=== PATIENT | male | born 1940 | race Caucasian/White ===

== ENCOUNTER 2020-01-11 13:10 | Observation (INO) | payer MEDICARE, OTHER, SELFPAY ==
[2020-01-11] VITALS (7 sets, daily range): BP systolic 93–173; BP diastolic 60–94; PULSE 63–80; RESP 16–20; TEMP 36.1–36.6; O2SAT 95–98; BMI 30.7
--- NOTE | 2020-01-11 13:23 | CT_ITS ---
WS: [id number] CT HEAD TECHNIQUE: Noncontrast CT of the head obtained from the skullbase to the vertex. CLINICAL INFORMATION: ams COMPARISON: April 21, 2019 DLP: 816.[address] scans at [facility] use at least one of these dose optimization techniques: automat ed exposure control; mA and/or kV adjustment per patient size (includes targeted exams where dose is matched to clinical indication); or iterative reconstruction. FINDINGS: No evidence of intracranial hemorrhage or mass effect. Ventricular system and basal cisterns are loya nt. Moderate small vessel changes with moderate parenchymal volume loss. No extra-axial fluid collect ions. No evidence of mass or mass effect. Normal katz-white differentiation. Intracranial vascular ca lcification. Paranasal sinuses and mastoid air cells are well aerated. .Normal visualized soft tissues. Notified Samanta Montgomery MD at 01/11/2020 2:[address]/CT head wo con* [id number] IMPRESSION: 1. No evidence of intracranial hemorrhage or mass effect. 2. Moderate small vessel changes with moderate parenchymal volume loss. 3. No acute intracranial findings.
--- NOTE | 2020-01-11 13:23 | XR_ITS ---
WS: [id number] CHEST XRAY TECHNIQUE: Portable chest. CLINICAL INFORMATION: ams COMPARISON: April 21, 2019 FINDINGS: Heart: Normal cardiac silhouette. Lungs: Chronic emphysematous changes. Calcified hilar nodes. No acute-appearing pulmonary infiltrates . Bones: Reversed right TSA. XR/XR chest 1V portable [id number] IMPRESSION: Chronic emphysematous changes with calcified hilar nodes. No acute-appearing pu lmonary infiltrates.
--- NOTE | 2020-01-11 13:24 | ECG_ITS ---
Measurements Intervals [place] Rate: 68 P: 20 UT: 251 QRS: 3 QRSD: 84 T: 19 QT: 399 QTc: 425 SINUS RHYTHM WITH FIRST DEGREE AV BLOCK Compared to ECG 04/21/2019 17:37:53 T-wave abnormality no longer present Electronically Signed On 01-12-2020 18:06:35 CDT by Gisela Patino M.D. [email or web address]
--- NOTE | 2020-01-11 13:27 | ED_ITS ---
HPI - Neuro Symptoms/Deficit General: Chief Complaint: Neuro Symptoms/Deficit Stated Complaint: stroke s/s Time Seen by Provider: 01/11/20 13:15 Source: patient Mode of arrival: ambulatory Limitations: no limitations History of Present Illness: HPI Narrative: 79-year-old male whose family last seen and talk to them last night. Patient states that he had went to the bathroom roughly 1.5 hours ago and got up and started feeling lightheaded. He states that he had trouble speaking and was passed out on the ground. Patient's family members here and states when he first got there he had left-sided facial droop and was quite weak. That is all since resolved. Patient is able to speak in full sentences and has no droop and is able to answer all my questions appropriately. Patient is ambulatory now as well. He states that he still feels weak though. He has had some nausea. Denies any chest pain or headache. Associated symptoms: Deny chest pain, headache(s), nausea or vomiting Review of Systems Const: Denies: fever, chills, body aches or change in appetite Eyes: Denies: blurry vision or eye discomfort ENMT: Denies: throat pain or dental pain Card: Denies: chest pain Resp: Denies: shortness of breath GI: Denies: abdominal pain, nausea, vomiting or diarrhea : Denies: painful urination Musc: Denies: neck pain or back pain Skin/Breast: Denies: rash Neuro: Reports: weakness in extremities and dizziness; Denies: headache Psych: Denies: depression David/Lymph: Denies: easy bruising All/Imm: Denies: hives PFSH ED PFSH: Social History Smoking and tobacco status: never smoked NIH stroke score NIHSS: Level Of Consciousness - 1a: 0 Level Of Consciousness Questions - 1b: Both Correct Level Of Consciousness Commands - 1c: Both Correct Best Gaze - 2: Normal Visual Salazar - 3: No Visual Loss Facial Palsy - 4: Normal Motor Arm Right - 5: No Drift Motor Arm Left - 5: No Drift Motor Leg Right - 6: No Drift Motor Leg Left - 6: No Drift Limb Ataxia - 7: Absent Sensory - 8: Normal Best Language - 9: No Aphasia Dysarthia - 10: Normal Extinction And Inattention - 11: 0 Score: Total Score: 0 Physical Exam Const: COMMON NORMALS: no apparent distress, oriented x3 and healthy appearing HENMT: COMMON NORMALS: normocephalic and head/scalp atraumatic HEAD & SCALP: normocephalic and atraumatic Eye: COMMON NORMALS: PERRL and EOMs intact bilaterally PUPIL: Yes PERRL Neck/C-Spine: COMMON NORMALS: full ROM and supple Chest: COMMONS NORMALS: inspection of chest normal and palpation of chest normal Resp: COMMON NORMALS: normal respiratory effort, no retractions, no use of accessory muscles and clear to auscultation bilaterally AUSCULTATION: clear to auscultation bilaterally Cardio: COMMON NORMALS: regular rate, regular rhythm and no murmurs RATE: regular rate RHYTHM: regular rhythm GI: COMMON NORMALS: normal to inspection, nondistended, normoactive bowel sounds, soft to palpation, non-tender and no masses PALPATION: Yes soft Extremity: COMMON NORMALS: normal to inspection and full ROM Neuro: COMMON NORMALS: oriented x3, moves all extremities and no focal motor deficits Psych: COMMON NORMALS: mental status grossly normal, thought process normal and cooperative THOUGHT PROCESS: normal thought process Skin: COMMON NORMALS: no rashes or lesions noted and no wounds GENERAL SKIN EXAM: no rashes or lesions noted Course Vital Signs: Vital signs: Vital Signs Temperature 96.9 F L 01/11/20 13:20 Pulse Rate 63 01/11/20 15:27 Respiratory Rate 20 H 01/11/20 15:27 Blood Pressure 173/94 01/11/20 15:27 Pulse Oximetry 97 01/11/20 15:27 MDM - Neuro Symptoms/Deficit MDM Narrative: Medical decision making narrative: Patient presents here with TIA versus a syncopal event. Patient symptoms have resolved and he is well- appearing here. Patient CT scan and lab works all normal. He is not a TPA candidate as his symptoms have resolved. I spoke to hospitalist and will admit for observation. Lab Data: Labs: Lab Results 01/11/20 01/11/20 01/11/20 Range/Units 13:53 13:53 13:53 WBC 5.8 (4.0-10.0) 10^3/ uL RBC 5.05 (4.1-5.3) 10^6/u L Hgb 11.7 (11.7-16.6) g/dL Hct 40.9 L (42.0-52.0) % MCV 81.0 (80-94) fL MCH 23.2 L (28.0-34.0) pg MCHC 28.6 L (30.0-36.0) g/dL RDW 14.9 (12.1-15.1) % Plt Count 171 (130-400) 10^3/c mm MPV 10.3 (7.4-10.4) fL Neut % (Auto) 81.0 % Lymph % (Auto) 10.9 % [place] % (Auto) 5.2 % Eos % (Auto) 1.2 % Baso % (Auto) 0.7 % Neut # (Auto) 4.7 (1.8-7.7) 10^3/u L Lymph # (Auto) 0.6 L (0.8-4.8) 10^3/u L [place] # (Auto) 0.3 (0.2-0.9) 10^3/u L Eos # (Auto) 0.1 (0.0-0.8) 10^3/u L Baso # (Auto) 0.0 (0.0-0.1) 10^3/u L Nucleated RBC % (a uto) 0 % Nucleated RBCs # 0.0 /100WBC PT 13.60 H (10.5-13.3) SECO NDS INR 1.01 (0.8-1.2) Sodium 136 (136-145) mmol/L Potassium 5.5 H (3.5-5.1) mmol/L Chloride 101 (98-107) mmol/L Carbon Dioxide 23 (22-29) mmol/L Anion Gap 17.5 (5-19) BUN 26 H (8-23) mg/dL Creatinine 1.4 H (0.7-1.2) mg/dL Glucose 179 H (65-115) mg/dL Calculated Osmolal ity 283 L (285-295) mOsm/k g Calcium 9.6 (8.5-10.5) mg/dL Total Bilirubin 0.4 (0.15-1.2) mg/dL AST 18 (0-40) U/L ALT 16 (0-41) U/L Alkaline Phosphata se 88 (40-130) IU/L Total Protein 7.1 (6.6-8.7) g/dL Albumin 4.0 (3.5-5.2) g/dL Globulin 3.1 (1.3-4.6) g/dL Urine Color (Yellow) Urine Appearance (CLEAR) Urine pH (5-7) Ur Specific Gravit y (1.005-1.030) Urine Protein (Negative) Urine Glucose (UA) (Normal) Urine Ketones (Negative) Urine Blood (Negative) Urine Nitrate (Negative) Urine Bilirubin (NEGATIVE) Urine Urobilinogen (Negative) mg/dL Ur Leukocyte Janie ase (Negative) Urine RBC (0-2) /hpf Urine WBC (0-5) /hpf Ur Squamous Epith Cells (0-5) Urine Bacteria (NONE) 01/11/20 Range/Units 14:36 WBC (4.0-10.0) 10^3/ uL RBC (4.1-5.3) 10^6/u L Hgb (11.7-16.6) g/dL Hct (42.0-52.0) % MCV (80-94) fL MCH (28.0-34.0) pg MCHC (30.0-36.0) g/dL RDW (12.1-15.1) % Plt Count (130-400) 10^3/c mm MPV (7.4-10.4) fL Neut % (Auto) % Lymph % (Auto) % [place] % (Auto) % Eos % (Auto) % Baso % (Auto) % Neut # (Auto) (1.8-7.7) 10^3/u L Lymph # (Auto) (0.8-4.8) 10^3/u L [place] # (Auto) (0.2-0.9) 10^3/u L Eos # (Auto) (0.0-0.8) 10^3/u L Baso # (Auto) (0.0-0.1) 10^3/u L Nucleated RBC % (a uto) % Nucleated RBCs # /100WBC PT (10.5-13.3) SECO NDS INR (0.8-1.2) Sodium (136-145) mmol/L Potassium (3.5-5.1) mmol/L Chloride (98-107) mmol/L Carbon Dioxide (22-29) mmol/L Anion Gap (5-19) BUN (8-23) mg/dL Creatinine (0.7-1.2) mg/dL Glucose (65-115) mg/dL Calculated Osmolal ity (285-295) mOsm/k g Calcium (8.5-10.5) mg/dL Total Bilirubin (0.15-1.2) mg/dL AST (0-40) U/L ALT (0-41) U/L Alkaline Phosphata se (40-130) IU/L Total Protein (6.6-8.7) g/dL Albumin (3.5-5.2) g/dL Globulin (1.3-4.6) g/dL Urine Color Yellow (Yellow) Urine Appearance Clear (CLEAR) Urine pH 5 (5-7) Ur Specific Gravit y 1.025 (1.005-1.030) Urine Protein 1+ H (Negative) Urine Glucose (UA) Norm (Normal) Urine Ketones Negative (Negative) Urine Blood Neg (Negative) Urine Nitrate Negative (Negative) Urine Bilirubin 1+ H (NEGATIVE) Urine Urobilinogen Norm (Negative) mg/dL Ur Leukocyte Janie ase Negative (Negative) Urine RBC None (0-2) /hpf Urine WBC 0-4 H (0-5) /hpf Ur Squamous Epith Cells 0-4 H (0-5) Urine Bacteria 1+ H (NONE) Imaging Data^: CT Head: Radiologist's impression: [place] [address] CT Scan Report Signed Patient: Martha Hector Unit #: [id number] : 1940 Age/Sex: 79 / M ADM Date: 01/11/20 Loc: ER Room/Bed: Attending Dr: Ordering Provider/Ordering MD: Samanta Montgomery MD Date of Service: 01/11/20 Procedure(s): CT head wo con* [id number] Accession Number(s): [id number] Report Number: [id number] WS: [id number] CT HEAD TECHNIQUE: Noncontrast CT of the head obtained from the skullbase to the vertex. CLINICAL INFORMATION: ams COMPARISON: April 21, 2019 DLP: 816.[address] scans at [facility] use at least one of these dose optimization techniques: automated exposure control; mA and/or kV adjustment per patient size (includes targeted exams where dose is matched to clinical indication); or iterative reconstruction. FINDINGS: No evidence of intracranial hemorrhage or mass effect. Ventricular system and basal cisterns are patent. Moderate small vessel changes with moderate parenchymal volume loss. No extra-axial fluid collections. No evidence of mass or mass effect. Normal katz-white differentiation. Intracranial vascular calcification. Paranasal sinuses and mastoid air cells are well aerated. .Normal visualized soft tissues. Notified Samanta Montgomery MD at 01/11/2020 2:[address]/CT head wo con* [id number] IMPRESSION: 1. No evidence of intracranial hemorrhage or mass effect. 2. Moderate small vessel changes with moderate parenchymal volume loss. 3. No acute intracranial findings. CXR: Attestation: I personally reviewed and interpreted this imaging study as follows: Radiologist's impression: [address] [address] XRay Report Signed Patient: Martha Hector Unit #: [id number] : 1940 Age/Sex: 79 / M ADM Date: 01/11/20 Loc: ER Room/Bed: Attending Dr: Ordering Provider/Ordering MD: Samanta Montgomery MD Date of Service: 01/11/20 Procedure(s): XR chest 1V portable [id number] Accession Number(s): [id number] Report Number: [id number] WS: [id number] CHEST XRAY TECHNIQUE: Portable chest. CLINICAL INFORMATION: ams COMPARISON: April 21, 2019 FINDINGS: Heart: Normal cardiac silhouette. Lungs: Chronic emphysematous changes. Calcified hilar nodes. No acute-appearing pulmonary infiltrates. Bones: Reversed right TSA. XR/XR chest 1V portable [id number] IMPRESSION: Chronic emphysematous changes with calcified hilar nodes. No acute-appearing pulmonary infiltrates EKG Data^: EKG 1: Attestation: I personally reviewed and interpreted this EKG as follows: EKG interpretation date: 01/11/20 EKG interpretation time: 14:05 Interpretation: nsr hr [address] or t wave abnormalities qrs 84 qtc 416 Discharge Plan Discharge Patient Disposition: Admitted As Inpatient Clinical Impression: Transient cerebral ischemia Qualifiers: Transient cerebral ischemia type: other Qualified Code(s): G45.8 - Other transient cerebral ischemic attacks and related syndromes Condition: Stable Referrals: Jalen Hicks DO [Family Provider] - Coding Level of Care Code ED Director Of [employer] for Chg Fwd Exam Comprehensive
[2020-01-11] MEDS: ondansetron 2 mg/ML SDV 2 mL 4 MG IVP (14:10)
[2020-01-11] MEDS: sodium chloride 0.9% 1,000 ML 999 ML IV (14:10)
[2020-01-11 14:14] LABS: Basophils % 0.7 %; Eosinophils # 0.1 10^3/uL (0.0-0.8); Eosinophils % 1.2 %; Hematocrit 40.9 % (42.0-52.0); Hemoglobin 11.7 g/dL (11.7-16.6); Lymphocytes # 0.6 10^3/uL (0.8-4.8); Lymphocytes % 10.9 %; Mean Corpuscular HGB Conc 28.6 g/dL (30.0-36.0); Mean Corpuscular Hemoglobin 23.2 pg (28.0-34.0); Mean Platelet Volume 10.3 fL (7.4-10.4); Monocytes # 0.3 10^3/uL (0.2-0.9); Monocytes % 5.2 %; Neutrophils # 4.7 10^3/uL (1.8-7.7); Nucleated Red Blood Cells % 0 %; Platelet Count 171 10^3/cmm (130-400); Red Blood Count 5.05 10^6/uL (4.1-5.3); Red Cell Distribution Width 14.9 % (12.1-15.1); White Blood Count 5.8 10^3/uL (4.0-10.0)
[2020-01-11 14:17] LABS: INR 1.01 (0.8-1.2)
[2020-01-11 14:25] LABS: Alanine Aminotransferase 16 U/L (0-41); Alkaline Phosphatase 88 IU/L (40-130); Anion Gap 17.5 (5-19); Aspartate Amino Transferase 18 U/L (0-40); Blood Urea Nitrogen 26 mg/dL (8-23); Calcium 9.6 mg/dL (8.5-10.5); Carbon Dioxide 23 mmol/L (22-29); Chloride 101 mmol/L (98-107); Globulin 3.1 g/dL (1.3-4.6); Glucose 179 mg/dL (65-115); Osmolality Calculated 283 mOsm/kg (285-295); Potassium 5.5 mmol/L (3.5-5.1); Sodium 136 mmol/L (136-145); Total Bilirubin 0.4 mg/dL (0.15-1.2); Total Protein 7.1 g/dL (6.6-8.7)
[2020-01-11 15:20] LABS: Glucose Urine UA Norm (Normal); Protein Urine 1+ (Negative); Specific Gravity, Urine 1.025 (1.005-1.030); Urine Appearance Clear (CLEAR); Urine Color Yellow (Yellow); pH Urine 5 (5-7)
[2020-01-11 15:21] LABS: Add Urine Microscopic? YES; Bilirubin Urine 1+ (NEGATIVE); Blood Urine Neg (Negative); Ketones Urine Negative (Negative); Leukocyte Esterase Urine Negative (Negative); Nitrate Urine Negative (Negative); Squamous Epithelial Cell Urine 0-4 (0-5); Urobilinogen Urine Norm (Negative); WBC Urine 0-4 /hpf (0-5)
[2020-01-11 15:22] LABS: Add Urine Culture? No; Bacteria Urine 1+
--- NOTE | 2020-01-11 16:27 | PM.HP ---
Providers/Chief Complaint Admitting Physician: Mauro Cerna Primary Care Provider: Mauro Cerna Chief Complaint: SYNCOPE History of Present Illness Martha Hector is a 79 year old male who was brought to emergency room by his family due to syncopal episode which happened about 2 hours prior to presentation to emergency room. The patient called to his daughter and informed her that he fell earlier this morning. He was at his baseline state of health before it happened. He did not have any concerns until this event. The patient was on the way to bathroom when he fell urged to defecate. Suddenly he also experienced some nausea and dry heaving. Shortly after that he experienced lightheadedness and collapsed. He does not remember events shortly after that. His daughter believes that he was down for at least an hour. When she arrived he was on the floor, confused, with generalized weakness. She noticed left-sided facial droop and slurred speech. However the symptoms very quickly resolved. On initial evaluation in the emergency room his NIH score was 0. Actually, now he reports feeling very well. He does not think that he had any seizures. No biting of the tongue, no vomiting, no foaming of the mouth, no incontinence. He also denies sustaining any significant traumas. His fall was pretty smooth. He denies any pain in his extremities or neck or head. He also denies any chest pain, palpitations, diaphoresis, dizziness, problems with vision, headache before or after. He denies any recent diarrhea, black or bloody stools, vomiting, fever or chills, respiratory symptoms, runny nose or sore throat. The patient denies any similar episodes in the past. He denies any personal or family history of seizures or stroke. The patient reports remote history of coronary artery disease and stents, currently takes only aspirin for that. He also reports well-controlled hypertension, diabetes. Occasionally he takes Pepto-Bismol for indigestion as needed. He says his doctor regularly. Review of Systems General: Reports: 10 or more systems reviewed and unremarkable except in HPI and below Medications/Allergies Home Medications Medication Instructions Recorded Confirmed Last Taken Type Lactobacillus acidophilus 1 cap PO BID 01/11/20 01/11/20 Unknown History [Acidophilus] Vitamin B-1 1 tab PO BID 01/11/20 01/11/20 Unknown History aspirin [Aspir-81] 81 mg PO DAILY 01/11/20 01/11/20 Unknown History citalopram 20 mg PO DAILY 01/11/20 01/11/20 01/11/20 History fiber 1 tab PO BID 01/11/20 01/11/20 Unknown History isosorbide dinitrate 30 mg PO DAILY 01/11/20 01/11/20 01/11/20 History metformin 1,000 mg PO BID 01/11/20 01/11/20 01/11/20 History metoprolol tartrate 25 mg PO DAILY 01/11/20 01/11/20 01/11/20 History omeprazole 40 mg PO BID 01/11/20 01/11/20 01/11/20 History Allergies Allergy/AdvReac Type Severity Reaction Status Date / Time No Known Allergies Allergy Verified 01/11/20 13:25 PFSH Acute PFSH: Social History Smoking and tobacco status: never smoked Vitals/I&O/Wt Last Vital Signs Temp 98 F 01/11/20 16:00 Pulse 67 01/11/20 16:01 Resp 16 01/11/20 16:01 BP 126/60 01/11/20 16:01 Pulse Ox 95 01/11/20 16:01 01/11/20 01/11/20 01/11/20 06:59 14:59 22:59 Intake Total 1000 / 1000 Balance 1000 / 1000 Weight last 48 hrs Weight 97.069 kg Physical Exam Narrative: EXAM NARRATIVE: The patient is currently awake alert and oriented x4. No acute distress. Mood and affect are appropriate and responses are adequate. Skin is warm and dry. Moist mucous membranes. Eyes PERRLA, extraocular muscles intact. No nystagmus. Head is atraumatic. Neck supple, nontender, no JVD Lungs clear bilaterally. No respiratory distress Heart S1, S2, regular Abdomen soft, nontender, bowel sounds are present. Extremities no edema, cyanosis, calf tenderness bilaterally. No thrombus. Normal range of motion's in the extremities. Neurologic examination is nonfocal. Cranial nerves II through XII are grossly intact. Normal speech. Cerebellar tests are within normal limits. Data : 01/11/20 13:53 01/11/20 13:53 CT Head: Radiologist's impression: Laboratory Results WBC 5.8 10^3/uL (4.0-10.0) 01/11/20 13:53 RBC 5.05 10^6/uL (4.1-5.3) 01/11/20 13:53 Hgb 11.7 g/dL (11.7-16.6) 01/11/20 13:53 Hct 40.9 % (42.0-52.0) L 01/11/20 13:53 MCV 81.0 fL (80-94) 01/11/20 13:53 MCH 23.2 pg (28.0-34.0) L 01/11/20 13:53 MCHC 28.6 g/dL (30.0-36.0) L 01/11/20 13:53 RDW 14.9 % (12.1-15.1) 01/11/20 13:53 Plt Count 171 10^3/cmm (130-400) 01/11/20 13:53 MPV 10.3 fL (7.4-10.4) 01/11/20 13:53 Neut % (Auto) 81.0 % 01/11/20 13:53 Lymph % (Auto) 10.9 % 01/11/20 13:53 [place] % (Auto) 5.2 % 01/11/20 13:53 Eos % (Auto) 1.2 % 01/11/20 13:53 Baso % (Auto) 0.7 % 01/11/20 13:53 Neut # (Auto) 4.7 10^3/uL (1.8-7.7) 01/11/20 13:53 Lymph # (Auto) 0.6 10^3/uL (0.8-4.8) L 01/11/20 13:53 [place] # (Auto) 0.3 10^3/uL (0.2-0.9) 01/11/20 13:53 Eos # (Auto) 0.1 10^3/uL (0.0-0.8) 01/11/20 13:53 Baso # (Auto) 0.0 10^3/uL (0.0-0.1) 01/11/20 13:53 Nucleated RBC % (auto) 0 % 01/11/20 13:53 Nucleated RBCs # 0.0 /100WBC 01/11/20 13:53 PT 13.60 SECONDS (10.5-13.3) H 01/11/20 13:53 INR 1.01 (0.8-1.2) 01/11/20 13:53 Sodium 136 mmol/L (136-145) 01/11/20 13:53 Potassium 5.5 mmol/L (3.5-5.1) H 01/11/20 13:53 Chloride 101 mmol/L (98-107) 01/11/20 13:53 Carbon Dioxide 23 mmol/L (22-29) 01/11/20 13:53 Anion Gap 17.5 (5-19) 01/11/20 13:53 BUN 26 mg/dL (8-23) H 01/11/20 13:53 Creatinine 1.4 mg/dL (0.7-1.2) H 01/11/20 13:53 Glucose 179 mg/dL (65-115) H 01/11/20 13:53 POC Glucose 137 mg/dL (70-110) 01/11/20 16:25 Calculated Osmolality 283 mOsm/kg (285-295) L 01/11/20 13:53 Calcium 9.6 mg/dL (8.5-10.5) 01/11/20 13:53 Total Bilirubin 0.4 mg/dL (0.15-1.2) 01/11/20 13:53 AST 18 U/L (0-40) 01/11/20 13:53 ALT 16 U/L (0-41) 01/11/20 13:53 Alkaline Phosphatase 88 IU/L (40-130) 01/11/20 13:53 Total Protein 7.1 g/dL (6.6-8.7) 01/11/20 13:53 Albumin 4.0 g/dL (3.5-5.2) 01/11/20 13:53 Globulin 3.1 g/dL (1.3-4.6) 01/11/20 13:53 Urine Color Yellow (Yellow) 01/11/20 14:36 Urine Appearance Clear (CLEAR) 01/11/20 14:36 Urine pH 5 (5-7) 01/11/20 14:36 Ur Specific [place] 1.025 (1.005-1.030) 01/11/20 14:36 Urine Protein 1+ (Negative) H 01/11/20 14:36 Urine Glucose (UA) Norm (Normal) 01/11/20 14:36 Urine Ketones Negative (Negative) 01/11/20 14:36 Urine Blood Neg (Negative) 01/11/20 14:36 Urine Nitrate Negative (Negative) 01/11/20 14:36 Urine Bilirubin 1+ (NEGATIVE) H 01/11/20 14:36 Urine Urobilinogen Norm mg/dL (Negative) 01/11/20 14:36 Ur Leukocyte Esterase Negative (Negative) 01/11/20 14:36 Urine RBC None /hpf (0-2) 01/11/20 14:36 Urine WBC 0-4 /hpf (0-5) H 01/11/20 14:36 Ur Squamous Epith Cells 0-4 (0-5) H 01/11/20 14:36 Urine Bacteria 1+ (NONE) H Chest X-Ray 01/11/20 13:23 IMPRESSION: Chronic emphysematous changes with calcified hilar nodes. No acute-appearing pulmonary infiltrates. Head CT 01/11/20 13:23 IMPRESSION: 1. No evidence of intracranial hemorrhage or mass effect. 2. Moderate small vessel changes with moderate parenchymal volume loss. 3. No acute intracranial findings. EKG 1: I personally reviewed and interpreted this EKG as follows: My Interpretation: First-degree AV block. No acute ischemic changes. No bradycardia A&P Additional A&P Information This is a 79-year-old gentleman with past medical history of well-controlled diabetes, hypertension, probable chronic kidney disease, GERD who presented with syncope and transient left-sided facial droop and slurred speech which are currently resolved. Differential is very broad. TIA is suspected. However this could be vasovagal episode, orthostatic hypotension, very unlikely seizure, or cardiac event. We will order CVA work-up including MRI of the brain without contrast due to kidney function, Doppler ultrasound of carotid arteries, echo, fasting lipids, TSH, orthostatic vital signs. Additional testing might be necessary after discharge by the primary care physician if we do not find any explanations of his symptoms based on this test results. He will be monitored on telemetry. Dehydration. His daughter reports that he is not drinking enough fluids. This could contribute to his syncope. I will order gentle hydration. We will recheck his kidney function in the morning. Mild acute kidney injury probably on top of chronic kidney disease. We will monitor his kidney function. Outpatient monitoring as well. Will avoid any nephrotoxic medications. Hyperkalemia. The daughter reports that he drinks a lot of Gatorade and recently has consumed more bananas than in the past because they were on sale in supermarket. We will put him on low potassium diet and monitor his electrolytes. DVT prophylaxis. Lovenox. Diabetes. I will hold his metformin. He will receive insulin sliding scale and ADA diet. History of GERD. We will continue his home PPI twice daily. The patient wants to be full code. The plan of care was discussed with the patient. He verbalized understanding and agreement Attestations Medical Necessity Statement*: Observation. Coding Level of Care Code Acute Tieing Machine Operator for Saad Perez
[2020-01-11 16:30] LABS: Glucose Point of Care 137 mg/dL (70-110)
[2020-01-11] MEDS: sodium chloride 0.9% 1,000 ML 75 ML IV (17:00)
[2020-01-11] MEDS: enoxaparin 30 mg/0.3 mL Syringe SUBCUT (17:00)
[2020-01-11] MEDS: pantoprazole DR 40 mg Tablet PO (17:01)
[2020-01-11 20:03] LABS: Troponin T (5th) Once 17 ng/mL (0-15)
[2020-01-11 20:22] LABS: Glucose Point of Care 151 mg/dL (70-110)
[2020-01-11] MEDS: atorvastatin 40 mg Tablet PO (22:03)
[2020-01-12] VITALS: BP 133/74; BP 136/82; BP 148/85; PULSE 83; PULSE 88; PULSE 92
[2020-01-12 00:05] VITALS: BP 148/85; PULSE 83; RESP 20; TEMP 36.8; O2SAT 93
[2020-01-12 00:22] LABS: Thyroid Stimulating Hormone 0.91 uIU/mL (0.27-4.20)
[2020-01-12 04:00] VITALS: BP 177/90; PULSE 83; RESP 20; TEMP 36.7; O2SAT 92
[2020-01-12 04:44] LABS: Albumin Level 3.5 g/dL (3.5-5.2); Anion Gap 15.3 (5-19); Blood Urea Nitrogen 24 mg/dL (8-23); Calcium 8.9 mg/dL (8.5-10.5); Carbon Dioxide 22 mmol/L (22-29); Chloride 104 mmol/L (98-107); Cholesterol 158 mg/dL (0-200); Glucose 135 mg/dL (65-115); HDL Cholesterol 31 mg/dL (60-100); LDL Cholesterol Calculated 78 mg/dL (50-129); LDL HDL Ratio 2.52 RATIO (0.00-3.22); Phosphorus 3.7 mg/dL (2.5-4.5); Potassium 5.3 mmol/L (3.5-5.1); Sodium 136 mmol/L (136-145); Triglycerides 245 mg/dL (0-150)
[2020-01-12 04:59] LABS: Magnesium 1.4 mg/dL (1.7-2.3)
--- NOTE | 2020-01-12 06:00 | USCV_ITS ---
Martha Hector Age: 79 Gender: M : 1940 Exam Date: 01/12/2020 07:06 Ordering Phys: Mauro Cerna MD Technologist: Salma Del Real Exam Location: [facility] [place] Indication: TIA BP: 177 / 90 HR: 70 Rhythm: Sinus Technical Quality: Technically difficult study MEASUREMENTS (Male / Female) Normal Values 2D ECHO LV Diastolic Diameter PLAX 3.7 cm 4.2 - 5.9 / 3.9 - 5.3 cm LV Systolic Diameter PLAX 3.0 cm LV Chamber Size 5.3 cm IVS Diastolic Thickness 1.3 cm 0.6 - 1.0 / 0.6 - 0.9 cm IVS Systolic Thickness 1.3 cm LVPW Diastolic Thickness 1.0 cm 0.6 - 1.0 / 0.6 - 0.9 cm LVPW Systolic Thickness 1.3 cm RV Chamber Size 3.4 cm LVOT Diameter 2.0 cm LV Ejection Fraction 2D Teich 42.1 % LV Ejection Fraction MOD 2C 37.4 % LV Ejection Fraction 2C AL 47.2 % LA Diameter 4.8 cm LA Width 3.5 cm LA Height 5.3 cm RA Width 3.8 cm RA Height 4.9 cm Aorta at Sinotubular Diameter 1.9 cm M-MODE LV Diastolic Diameter MM 5.0 cm 4.2 - 5.9 / 3.9 - 5.3 cm LV Systolic Diameter MM 3.9 cm LV Ejection Fraction MM Teich 43.3 % IVS Diastolic Thickness MM 1.0 cm 0.6 - 1.0 / 0.6 - 0.9 cm IVS Systolic Thickness MM 1.4 cm LVPW Diastolic Thickness MM 1.1 cm 0.6 - 1.0 / 0.6 - 0.9 cm LVPW Systolic Thickness MM 1.0 cm RV Diastolic Diameter MM 1.5 cm Aortic Annulus Diameter 3.4 cm LA Ao Ratio MM 1.4 MV E Point Septal Separation 0.6 cm DOPPLER AV Peak Velocity 163.0 cm/s LVOT Peak Velocity 86.0 cm/s AV Area Cont Eq vti 1.9 cm squared AV Area Cont Eq pk 1.7 cm squared MV Area PHT 4.6 cm squared Mitral E to A Ratio 1.2 MV E' Velocity 10.0 cm/s Mitral E to MV E' Ratio 11.4 Mitral E to LV E' Lateral Ratio 10.4 Mitral E to LV E' Septal Ratio 12.7 TR Peak Velocity 271.1 cm/s TR Peak Gradient 29.4 mmHg TR Mean Velocity 200.3 cm/s TR Mean Gradient 17.7 mmHg TR Velocity Time Integral 97.7 cm TV Peak E Velocity 73.0 cm/s Right Atrial Pressure 3.0 mmHg Pulmonary Artery Systolic Pressu 32.4 mmHg PV Peak Velocity 70.0 cm/s RV Acceleration Time 0.1 s RV Ejection Time 0.4 s RV AcT/ET 0.3 FINDINGS Left Ventricle Normal left ventricular size, systolic function and wall thickness, with no regional wall motion abnormalities. Normal left ventricular wall thickness. Normal diastolic filling pattern. Left ventricular ejection fraction is estimated at 60 %. Right Ventricle The right ventricle is normal in size and function. Right Atrium The right atrium is normal in size. Left Atrium Mildly increased left atrial size. Mitral Valve Structurally normal mitral valve without significant stenosis or prolapse. There is no mitral regurgitation. Aortic Valve Structurally normal aortic valve without significant sclerosis or stenosis. There is no aortic regurgitation. Tricuspid Valve Structurally normal tricuspid valve without significant stenosis or regurgitation. Pulmonary artery systolic pressure is normal. Pulmonic Valve Structurally normal pulmonic valve without significant stenosis. There is no pulmonic regurgitation. Pericardium Normal pericardium without effusion. Aorta Normal ascending aorta dimension. CONCLUSIONS Normal left ventricular size, systolic function and wall thickness, with no regional wall motion abnormalities. Normal left ventricular wall thickness. Normal diastolic filling pattern. Left ventricular ejection fraction is estimated at 60 %. Mildly increased left atrial size. There are no prior echocardiogram studies to compare. Technically limited study. Dr. Mustapha Das MD (Electronically Signed) Final Date: 12 January 2020 13:55 S
--- NOTE | 2020-01-12 06:00 | USCV_ITS ---
Martha Hector Age: 79 Gender: M : 1940 Exam Date: 01/12/2020 07:30 Ordering Phys: Mauro Cerna MD Technologist: Salma Del Real Exam Location: [facility] [place] Indication: CVA SYNCOPE Risk Factors: Unknown Previous Vascular Surgery: None Right Brachial BP: / Left Brachial BP: / Right Left Velocity (cm/s) Spectral Plaque Velocity (cm/s) Spectral Plaque Syst/Diast Broadening Syst/Diast Broadening 58.40/ 11.70 Prox CCA 43.60 / 12.30 50.80/ 12.30 Hetro Mid CCA 62.60 / 17.30 Hetro 97.20/ 14.00 Hetro Distal CCA 44.20 / 11.70 Hetro 96.40/ 16.60 Hetro Prox ICA 85.00 / 20.10 Hetro 92.90/ 17.50 Hetro Mid ICA 82.80 / 20.10 82.30/ 19.30 Distal ICA 65.00 / 10.70 71.00 Hetro ECA 127.50 Hetro 0.99 ICA/CCA 1.36 Antegrade Vertebral Antegrade 28.70/ 10.40 cm/s 32.60/ 6.40 cm/s Bi Subclavian Tri 67.40 88.40 CONCLUSIONS Dense calcified plaque both carotid bulbs and proximal ICAS could obscure more significant stenosis. Consider further evaluaion with CTA for better anatomic detail. Right ICA stenosis <50%. Moderate atheromatous plaque right carotid bulb/ICA. Left ICA stenosis <50%. Moderate atheromatous plaque left carotid bulb/ICA. Normal antegrade Doppler flow noted in the right vertebral artery. Normal antegrade Doppler flow noted in the left vertebral artery. Maico Urbano MD (Electronically Signed) Final Date: 12 January 2020 11:24 S
[2020-01-12] MEDS: sodium chloride 0.9% 1,000 ML 75 ML IV (06:41)
[2020-01-12] MEDS: labetalol 5 mg/mL SDV 20mL 10 MG IVP (06:42)
[2020-01-12 06:48] LABS: Glucose Point of Care 150 mg/dL (70-110)
[2020-01-12 07:24] LABS: Estmated Average Glucose 157; Hemoglobin A1C 7.1 % (4.0-6.0)
[2020-01-12 08:00] VITALS: BP 132/76; BP 162/75; BP 164/69; BP 174/81; PULSE 79; RESP 18; TEMP 37.4; O2SAT 95
[2020-01-12] MEDS: aspirin 81 mg EC Tablet PO (08:52)
[2020-01-12] MEDS: metoprolol tartrate 25 mg Tablet PO (08:52)
[2020-01-12] MEDS: pantoprazole DR 40 mg Tablet PO (08:52)
[2020-01-12] MEDS: thiamine 100 mg Tablet PO (08:52)
[2020-01-12] MEDS: clopidogrel 75 mg Tablet PO (08:53)
[2020-01-12 10:58] LABS: Glucose Point of Care 188 mg/dL (70-110)
[2020-01-12 12:00] VITALS: BP 135/87; PULSE 73; RESP 18; TEMP 35.5; O2SAT 96
--- NOTE | 2020-01-12 12:00 | MR_ITS ---
WS: [id number] MRI HEAD WITHOUT CONTRAST TECHNIQUE: Sagittal T1, T2 axial, T2 axial FLAIR, axial and coronal T1 images, axial susceptibility w eighted imaging, axial diffusion weighted images, and coronal T2 images were obtained. CLINICAL INFORMATION: Stroke work up COMPARISON: None. FINDINGS: No evidence of restricted diffusion to suggest acute ischemia. Ventricular system and basal cisterns are patent. Left frontal extra-axial dural based lesion most consistent with meningioma on this nonco ntrast study measuring 11 x 4 mm. This overlies the left frontal operculum. No significant mass effec t. No edema in the underlying left frontal lobe. Moderate small vessel changes. Moderate parenchymal volume loss. Moderate symmetric atrophy involving the temporal lobes and hippocampal formations. Normal vascular flow voids at the skull base. No extr a-axial fluid collections. Paranasal sinuses and mastoid air cells are well aerated. Normal optic chiasm and pituitary infundibulum. Moderate symmetric atrophy involving the temporal lob es and hippocampal formations. MR/MR head wo con* [id number] IMPRESSION: 1. No evidence of restricted diffusion to suggest acute ischemia. 2. Moderate small vessel changes with moderate parenchymal volume loss. 3. Moderate symmetric atrophy involving the temporal lobes hippocampal formati ons. 4. Left frontal extra-axial lesion measuring 11 x 4 mm most consistent with an incidental meningioma. No underlying edema.
--- NOTE | 2020-01-12 12:02 | PC.CHAP ---
Pastoral Care Encounter/Spiritual Assessment Type of Contact [] Declined consulting services project manager visit [] Patient/Family/Request visit [] Outpatient visit [] Follow-up visit [] Physician referral [] Code/Alert [x] Routine visit [] Staff referral [] Actively dying [] Patient sleeping [] Family support [] [] Out of room [] Palliative care [] [x] Receiving care in room [] Pre-surgical visit [] Trauma [] Long length of stay [] ICU visit [] Other: Relational/Emotional Strength [x] Patient feels connected with others/family/visitors/staff [] Distress [] Loneliness/isolation [] Abandonment Spirituality of Patient [x] Person of Angie [] Attends Advent of their Angie [x] Believes in Prayer [] Reads Bible or Episcopalian materials [] There are Spiritual issues to be addressed Funeral Director/Embalmer/Owner Interventions [x] Prayer [x] Active listening [x] Non-anxious presence [x] Spiritual/emotional support [] Crisis/trauma care [x] Spiritual counseling [] Bereavement support [] Provided bereavement packet [] Provided Bible/devotional materials [] Provided toy/stuffed animal, coloring book to patient or family member [] Provided Communion [] Anointing/Gustine [] Salvation [x] Completed spiritual assessment [] Other: Impact on Illness or Injury [] Angry [] Fearful [] Anxious [] Often cries [] Exhaustion [] Unable to work [] Unable to attend holiness [] Unable to walk/stand [] Unable to read [] Unable to drive [] Unable to eat/drink [] Unable to sleep [] Unable to be with family [] Patient intubated [] Other: Summary 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
[2020-01-12 15:21] VITALS: BP 135/87; PULSE 73; RESP 18; TEMP 35.5; O2SAT 96
--- NOTE | 2020-01-12 15:21 | P.DS_ITS ---
Discharge Providers Date of Admission: 01/11/20 15:37 Date of Discharge: January 12, 2020 Attending Provider at Admission: Mauro Cerna Attending Provider at Discharge: Mauro Cerna Primary Care Provider: Mauro Cerna Reason for Visit Reason for Visit: Reason For Visit: SYNCOPE Hospital Course Discharge Summary: This is a 79-year-old gentleman with past medical history of well-controlled diabetes, hypertension, probable chronic kidney disease, GERD who presented with syncope and transient left-sided facial droop and slurred speech which are currently resolved. The patient was found to have orthostatic drop in the blood pressure this morning. This could be possible explanation of his syncope. Additionally, he had some evidence of dehydration. His kidney function improved with IV fluids. MRI did not show any acute findings. He has a meningioma. I doubt that it contributed to his syncope. I will let the primary care physician to consider additional testing if he feels it is necessary. Echo did not show any abnormalities. Doppler ultrasound shows some vascular stenosis and calcifications. I will let the primary care physician to consider additional testing in outpatient settings. Please see entire report for more details. Hyperkalemia. The daughter reports that he drinks a lot of Gatorade and rec ently has consumed more bananas than in the past because they were on sale in supermarket. It has resolved. Please continue monitoring. DVT prophylaxis. Received Lovenox. The plan of care was discussed with the patient. He verbalized understanding and agreement. The patient is feeling well today. He denies any new episodes of fainting. No dizziness or lightheadedness. No weakness. He denies chest pain, palpitations. No nausea or vomiting. No diarrhea. He is eager to go home. I provided my phone number and asked the family to call me so I can discuss with them the findings and my discharge recommendations. Physical Exam Narrative: EXAM NARRATIVE: The patient is currently awake alert and oriented x4. No acute distress. Mood and affect are appropriate and responses are adequate. Skin is warm and dry. Moist mucous membranes. Eyes PERRLA, extraocular muscles intact. No nystagmus. Head is atraumatic. Neck supple, nontender, no JVD Lungs clear bilaterally. No respiratory distress Heart S1, S2, regular Abdomen soft, nontender, bowel sounds are present. Extremities no edema, cyanosis, calf tenderness bilaterally. No thrombus. Normal range of motion's in the extremities. Neurologic examination is nonfocal. Cranial nerves II through XII are grossly intact. Normal speech. Cerebellar tests are within normal limits. Discharge Data Data Completed and Pending: Completed Studies During Hospitalization Category Date Time Status CT head wo con* [id number] Urgent Cat Scan 01/11/20 13:23 Completed XR chest 1V darrius ble [id number] Urgent Exams 01/11/20 13:23 Completed MR head wo con* [id number] Routine MRI 01/12/20 12:00 Completed CV carotid duplex BI* [id number] Routine Ultrasound 01/12/20 06:00 Completed CV echo complete* [id number] Routine Ultrasound 01/12/20 06:00 Completed Labs from last 24 hours 01/12/20 01/12/20 01/12/20 10:39 07:00 06:31 Sodium Potassium Chloride Carbon Dioxide Anion Gap BUN Creatinine Glucose POC Glucose 188 150 Estimat Average Gl ucose 157 Hemoglobin A1c 7.1 H Calcium Phosphorus Magnesium Troponin T Gen 5 n g/L Albumin Triglycerides Cholesterol LDL Cholesterol, C alc HDL Cholesterol LDL/HDL Ratio Cholesterol/HDL Ra deanna TSH Urine Color Urine Appearance Urine pH Ur Specific Gravit y Urine Protein Urine Glucose (UA) Urine Ketones Urine Blood Urine Nitrate Urine Bilirubin Urine Urobilinogen Ur Leukocyte Janie ase Urine RBC Urine WBC Ur Squamous Epith Cells Urine Bacteria 01/12/20 01/12/20 01/11/20 04:09 04:09 20:17 Sodium 136 Potassium 5.3 H Chloride 104 Carbon Dioxide 22 Anion Gap 15.3 BUN 24 H Creatinine 1.3 H Glucose 135 H POC Glucose 151 Estimat Average Gl ucose Hemoglobin A1c Calcium 8.9 Phosphorus 3.7 Magnesium 1.4 L Troponin T Gen 5 n g/L Albumin 3.5 Triglycerides 245 H Cholesterol 158 LDL Cholesterol, C alc 78 HDL Cholesterol 31 L LDL/HDL Ratio 2.52 Cholesterol/HDL Ra deanna 5.10 H TSH Urine Color Urine Appearance Urine pH Ur Specific Gravit y Urine Protein Urine Glucose (UA) Urine Ketones Urine Blood Urine Nitrate Urine Bilirubin Urine Urobilinogen Ur Leukocyte Janie ase Urine RBC Urine WBC Ur Squamous Epith Cells Urine Bacteria 01/11/20 01/11/20 01/11/20 18:00 18:00 16:25 Sodium Potassium Chloride Carbon Dioxide Anion Gap BUN Creatinine Glucose POC Glucose 137 Estimat Average Gl ucose Hemoglobin A1c Calcium Phosphorus Magnesium Troponin T Gen 5 n g/L 17 H Albumin Triglycerides Cholesterol LDL Cholesterol, C alc HDL Cholesterol LDL/HDL Ratio Cholesterol/HDL Ra deanna TSH 0.91 Urine Color Urine Appearance Urine pH Ur Specific Gravit y Urine Protein Urine Glucose (UA) Urine Ketones Urine Blood Urine Nitrate Urine Bilirubin Urine Urobilinogen Ur Leukocyte Janie ase Urine RBC Urine WBC Ur Squamous Epith Cells Urine Bacteria 01/11/20 14:36 Sodium Potassium Chloride Carbon Dioxide Anion Gap BUN Creatinine Glucose POC Glucose Estimat Average Gl ucose Hemoglobin A1c Calcium Phosphorus Magnesium Troponin T Gen 5 n g/L Albumin Triglycerides Cholesterol LDL Cholesterol, C alc HDL Cholesterol LDL/HDL Ratio Cholesterol/HDL Ra deanna TSH Urine Color Yellow Urine Appearance Clear Urine pH 5 Ur Specific Gravit y 1.025 Urine Protein 1+ H Urine Glucose (UA) Norm Urine Ketones Negative Urine Blood Neg Urine Nitrate Negative Urine Bilirubin 1+ H Urine Urobilinogen Norm Ur Leukocyte Janie ase Negative Urine RBC None Urine WBC 0-4 H Ur Squamous Epith Cells 0-4 H Urine Bacteria 1+ H Vitals: Last Vital Signs Temp 96 F L 01/12/20 12:00 Pulse 73 01/12/20 12:00 Resp 18 01/12/20 12:00 BP 135/87 01/12/20 12:00 Pulse Ox 96 01/12/20 12:00 Discharge Plan Discharge Patient Disposition: Home, Self-Care Condition: Stable Prescriptions: Continued omeprazole 40 mg capsule,delayed release(DR/EC) 40 mg PO BID RF: 0 Aspir-81 81 mg Tablet,Delayed Release (Dr/Ec) 81 mg PO DAILY RF: 0 isosorbide dinitrate 30 mg tablet 30 mg PO DAILY RF: 0 citalopram 20 mg tablet 20 mg PO DAILY RF: 0 metformin 1,000 mg tablet 1,000 mg PO BID RF: 0 Acidophilus Capsule 1 cap PO BID RF: 0 metoprolol tartrate 25 mg tablet 25 mg PO DAILY RF: 0 Vitamin B-1 1 tab PO BID RF: 0 fiber 1 tab PO BID RF: 0 Discharge Orders: Discharge Order (Routine); Ordered 01/12/20 Ordered By: Mauro Cerna Referrals: Jalen Hicks DO [Family Provider] - 01/19/20 9:15 am (pl speak with your doctor about management and monitoring of findings found in the dopler ult rasound, MRI. Additional testing might be needed.) Discharge Diet: Cardiac and Low Fat Discharge Activity: Increase activity as tolerated Patient Instructions: Type 2 Diabetes, Transient Ischemic Attack (DC), Syncope (DC) Activity Restrictions/Additional Instructions: Please follow-up with your primary care physician in 1 week. Discussed with your primary care physician findings of Doppler ultrasound of the carotid arteries and MRI. (Vascular stenosis and meningioma.) Additional testing might be necessary ordered by the primary care physician. Please drink plenty of fluids. Avoid electrolyte drinks. Please return to emergency room if develop any new fainting episodes or any other new complaints. Discharge Attestations Time Spent in Discharge Care*: less than 30 min Quality Metrics Clinical Quality Measures During this hospital stay, did patient experience: None Coding Level of Care Code Acute Student Education Specialist for Saad Perez
--- NOTE | 2020-01-12 16:48 | PC.OT ---
OT note: Attempted OT evaluation this morning. Pt requested to wait until after MRI. Attempted again at approximately 1245 but pt was at MRI.
== END 2020-01-12 16:50 | disposition home or self-care (01) ==
LOC: ER 15:59 → MEDSURG 16:00
PROVIDERS: Admitting Provider Internal Medicine; Emergency Provider Emergency Medicine; Family Provider Internal Medicine; PCP Internal Medicine; Visit Provider Internal Medicine
DX: R55 Syncope and collapse (principal); I25.10 Atherosclerotic heart disease of native coronary artery without angina pectoris; Z95.5 Presence of coronary angioplasty implant and graft; Z79.82 Long term (current) use of aspirin; I10 Essential (primary) hypertension; E11.9 Type 2 diabetes mellitus without complications; K21.9 Gastro-esophageal reflux disease without esophagitis; E86.0 Dehydration; N17.9 Acute kidney failure, unspecified; E87.5 Hyperkalemia; Z79.84 Long term (current) use of oral hypoglycemic drugs; I65.23 Occlusion and stenosis of bilateral carotid arteries; I44.0 Atrioventricular block, first degree
CPT/HCPCS: 12345; 36415; 36416; 70450; 70551; 71045; 80053; 80061; 80069; 81001; 82962; 83036; 83735; 84443; 84484; 85025; 85610; 93005; 93306; 93880; 96361; 96372; 96375; 97110; 97116; 97162; 99283; 99285; G0378; J1650; J1815; J2405; J3490; J7030

== ENCOUNTER → 2020-08-04 10:48 | Day surgery (SDC) | payer MEDICARE, OTHER, SELFPAY ==
[2020-08-04] MEDS: ferric carboxy (IVPB) 750 MG in sodium chloride 0.9% (100 ml) 100 ML 345 MG IV (11:33)
[2020-08-04 11:34] VITALS: BP 149/83; PULSE 67; RESP 18; TEMP 36.4; O2SAT 98; BMI 28.7
== END ==
PROVIDERS: PCP Internal Medicine; Visit Provider Internal Medicine
DX: D50.9 Iron deficiency anemia, unspecified (principal)
CPT/HCPCS: 96365; J1439

== ENCOUNTER → 2020-08-11 09:37 | Day surgery (SDC) | payer MEDICARE, OTHER, SELFPAY ==
[2020-08-11] MEDS: ferric carboxy (IVPB) 750 MG in sodium chloride 0.9% (100 ml) 100 ML 345 MG IV (11:02)
[2020-08-11 16:14] VITALS: PULSE 72; RESP 18; TEMP 36.4; O2SAT 96
== END ==
PROVIDERS: PCP Internal Medicine; Visit Provider Internal Medicine
DX: D50.9 Iron deficiency anemia, unspecified (principal)
CPT/HCPCS: 96360; J1439

== ENCOUNTER 2020-09-06 10:16 | Outpatient (RCR) | payer MEDICARE, OTHER, SELFPAY ==
[2020-08-30 10:19] VITALS: BP 152/90; PULSE 71; RESP 18; TEMP 36.4; O2SAT 96; BMI 24.3
[2020-08-30] MEDS: ferric carboxy (IVPB) 750 MG in sodium chloride 0.9% (100 ml) 100 ML 345 MG IV (10:50)
[2020-09-06 10:25] VITALS: BP 157/106; PULSE 70; RESP 18; TEMP 36.6; O2SAT 97
[2020-09-06] MEDS: ferric carboxy (IVPB) 750 MG in sodium chloride 0.9% (100 ml) 100 ML 345 MG IV (10:39)
== END 2020-09-22 23:59 | disposition home or self-care (01) ==
LOC: OPS 10:16
PROVIDERS: PCP Internal Medicine; Visit Provider Internal Medicine
DX: D50.9 Iron deficiency anemia, unspecified (principal)
CPT/HCPCS: 96365; J1439

== ENCOUNTER 2020-11-16 15:07 | Inpatient (IN) | payer MEDICARE, OTHER, SELFPAY ==
[2020-11-16] VITALS (10 sets, daily range): BP systolic 113–158; BP diastolic 73–109; PULSE 79–91; RESP 16–20; TEMP 37.7–37.8; O2SAT 92–94; BMI 25.8
--- NOTE | 2020-11-16 15:57 | XR_ITS ---
WS: [id number] Exam: XR chest 1V portable [id number] Date/Time of Exam: 11/16/2020 4:09 PM Reason For Exam: dyspnea/cough Comparison 01/11/2020. The lungs are fully expanded. Mild plaque atelectasis in the left lower lung zone. No infiltrates or pleural effusions. Unremarkable cardiomediastinal structures for technique. Right reverse shoulder pr osthesis. Signs of coronary artery stenting. XR/XR chest 1V portable [id number] IMPRESSION: 1. No acute cardiopulmonary finding.
[2020-11-16 16:29] LABS: Alanine Aminotransferase 31 U/L (0-41); Albumin Level 3.6 g/dL (3.5-5.2); Alkaline Phosphatase 124 IU/L (40-130); Anion Gap 13.7 (5-19); Aspartate Amino Transferase 30 U/L (0-40); Blood Urea Nitrogen 25 mg/dL (8-23); Calcium 8.3 mg/dL (8.5-10.5); Carbon Dioxide 24 mmol/L (22-29); Chloride 98 mmol/L (98-107); Globulin 3.8 g/dL (1.3-4.6); Glucose 208 mg/dL (65-115); Osmolality Calculated 282 mOsm/kg (285-295); Potassium 4.7 mmol/L (3.5-5.1); Sodium 131 mmol/L (136-145); Total Bilirubin 0.4 mg/dL (0.15-1.2); Total Protein 7.4 g/dL (6.6-8.7)
[2020-11-16] MEDS: ondansetron 2 mg/ML SDV 2 mL 4 MG IVP (16:34)
[2020-11-16] MEDS: sodium chloride 0.9% 1,000 ML 999 ML IV (16:35)
--- NOTE | 2020-11-16 16:40 | W.ED.COVID ---
HPI - COVID General: Chief Complaint: General Medical Stated Complaint: Dehydrated/ diarhea Time Seen by Provider: 11/16/20 15:53 Triage information: No fever, cough or shortness of breath. No known COVID + exposure last 14 days History of Present Illness: HPI Narrative: 80-year-old male presents emergency room complaining of 3 to 4 days of cough shortness of breath and diarrhea. He is not had any anosmia. He has had fever myalgias. Denies any medication hematemesis cough cramps no chest pain. MD complaint: has COVID symptoms Prior covid testing: no COVID 19 common symptoms: positive fever(s), chills, cough, non-productive cough, dyspnea, fatigue, body aches, throat pain, nasal congestion, nausea and diarrhea; negative productive cough or vomiting COVID 19 other sytmptoms: negative chest pain, requiring oxygen or respiratory distress Onset (ago): day(s) (3-4) Pertinent comorbid conditions: diabetes, hypertension, heart disease and COPD/respiratory disease Treatment prior to arrival: none COVID Results: SARS-CoV-2 Antigen (Rapid) Positive (Negative) H 11/16/20 16:30 11/16/20 Review of Systems Const: Reports: fever(s), chills, body aches and fatigue ENMT: Reports: throat pain and nasal congestion Card: Denies: chest pain, edema, dyspnea on exertion or orthopnea Resp: Reports: dyspnea and non-productive cough; Denies: productive cough GI: Reports: nausea and diarrhea; Denies: vomiting : Denies: flank pain, dysuria, urinary frequency or urinary urgency Skin/Breast: Denies: rash or pruritus PFS ED PFSH: Medical History (Updated 11/18/20 @ 10:25 by Fran Wang DO) Coronary artery disease Diabetes First degree AV block Hypertension Surgical History (Updated 11/16/20 @ 18:29 by Philip James MD) History of intravascular stent placement History of right shoulder replacement Family History (Updated 11/16/20 @ 18:28 by Philip James MD) Father Colon cancer Stroke Mother Diabetes Social History (Updated 11/16/20 @ 18:28 by Philip James MD) Smoking and tobacco status: former smoker Alcohol intake: never Substance/Drug Use: never Physical Exam Const: COMMON NORMALS: no acute distress GENERAL APPEARANCE: cooperative and comfortable HENMT: COMMON NORMALS: normocephalic, atraumatic and hearing grossly normal bilaterally HEAD & SCALP: normocephalic and atraumatic Neck/C-Spine: COMMON NORMALS: no JVD Resp: AUSCULTATION: rales and wheezes Cardio: COMMON NORMALS: no JVD, regular rate, regular rhythm and No murmurs present (Cardio) RATE: regular rate RHYTHM: regular rhythm GI: COMMON NORMALS: Soft to palpation and No hepatosplenomegaly present AUSCULTATION: Yes normoactive bowel sounds PALPATION: Yes Soft to palpation, No Tenderness to palpation present (GI), No Guarding due to palpation present (GI) and Yes No hepatosplenomegaly present Extremity: COMMON NORMALS: normal to inspection, capillary refill normal, no clubbing, cyanosis or edema, no calf tenderness and no pedal edema Skin: COMMON NORMALS: no rashes or lesions noted GENERAL SKIN EXAM: no rashes or lesions noted Course Vital Signs: Vital signs: Vital Signs Temperature 98.4 F 11/18/20 07:31 Pulse Rate 84 11/18/20 08:38 Respiratory Rate 18 11/18/20 08:38 Blood Pressure 136/57 11/18/20 07:31 Pulse Oximetry 93 11/18/20 08:38 MDM - COVID MDM Narrative: Medical decision making narrative: Patient progressively needing more supplemental oxygen support. I am concerned with his rapid onset of symptoms that he will continue to deteriorate and he is best served by being admitted to the hospital given his multiple comorbidities. Discussed with the patient and with the hospitalist orders are written has been started on dexamethasone and remdesivir. Lab Data: Labs: Lab Results 11/16/20 11/16/20 11/16/20 Range/Units 16:00 16:00 16:30 WBC 3.0 L (4.0-10.0) 10^3/ uL RBC 5.66 H (4.1-5.3) 10^6/u L Hgb 16.4 (11.7-16.6) g/dL Hct 51.4 (42.0-52.0) % MCV 90.8 (80-94) fL MCH 29.0 (28.0-34.0) pg MCHC 31.9 (30.0-36.0) g/dL RDW 15.1 (12.1-15.1) % Plt Count 105 L (130-400) 10^3/c mm MPV 10.0 (7.4-10.4) fL Neut % (Auto) 65.4 % Lymph % (Auto) 20.9 % Cowley % (Auto) 11.0 % Eos % (Auto) 1.0 % Baso % (Auto) 0.7 % Neut # (Auto) 1.97 (1.8-7.7) 10^3/u L Lymph # (Auto) 0.6 L (0.8-4.8) 10^3/u L Cowley # (Auto) 0.3 (0.2-0.9) 10^3/u L Eos # (Auto) 0.0 (0.0-0.8) 10^3/u L Baso # (Auto) 0.0 (0.0-0.1) 10^3/u L Nucleated RBC % (a uto) 0 % Nucleated RBCs # 0.0 /100WBC Sodium 131 L (136-145) mmol/L Potassium 4.7 (3.5-5.1) mmol/L Chloride 98 (98-107) mmol/L Carbon Dioxide 24 (22-29) mmol/L Anion Gap 13.7 (5-19) BUN 25 H (8-23) mg/dL Creatinine 1.4 H (0.7-1.2) mg/dL GFR Calculation Not Reportable Glucose 208 H (65-115) mg/dL Calculated Osmolal ity 282 L (285-295) mOsm/k g Calcium 8.3 L (8.5-10.5) mg/dL Total Bilirubin 0.4 (0.15-1.2) mg/dL AST 30 (0-40) U/L ALT 31 (0-41) U/L Alkaline Phosphata se 124 (40-130) IU/L Total Protein 7.4 (6.6-8.7) g/dL Albumin 3.6 (3.5-5.2) g/dL Globulin 3.8 (1.3-4.6) g/dL Urine Color (Yellow) Urine Appearance (CLEAR) Urine pH (5-7) Ur Specific Gravit y (1.005-1.030) Urine Protein (Negative) Urine Glucose (UA) (Normal) Urine Ketones (Negative) Urine Blood (Negative) Urine Nitrate (Negative) Urine Bilirubin (Negative) Urine Urobilinogen (Negative) mg/dL Ur Leukocyte Janie ase (Negative) Urine RBC (0-2) /hpf Urine WBC (0-5) /hpf Ur Squamous Epith Cells (0-5) /hpf Amorphous Sediment /hpf Urine Bacteria (NONE) /hpf Urine Mucus /hpf SARS-CoV-2 Ag (Rap id) Positive H (Negative) 11/16/20 Range/Units 17:37 WBC (4.0-10.0) 10^3/ uL RBC (4.1-5.3) 10^6/u L Hgb (11.7-16.6) g/dL Hct (42.0-52.0) % MCV (80-94) fL MCH (28.0-34.0) pg MCHC (30.0-36.0) g/dL RDW (12.1-15.1) % Plt Count (130-400) 10^3/c mm MPV (7.4-10.4) fL Neut % (Auto) % Lymph % (Auto) % Cowley % (Auto) % Eos % (Auto) % Baso % (Auto) % Neut # (Auto) (1.8-7.7) 10^3/u L Lymph # (Auto) (0.8-4.8) 10^3/u L Cowley # (Auto) (0.2-0.9) 10^3/u L Eos # (Auto) (0.0-0.8) 10^3/u L Baso # (Auto) (0.0-0.1) 10^3/u L Nucleated RBC % (a uto) % Nucleated RBCs # /100WBC Sodium (136-145) mmol/L Potassium (3.5-5.1) mmol/L Chloride (98-107) mmol/L Carbon Dioxide (22-29) mmol/L Anion Gap (5-19) BUN (8-23) mg/dL Creatinine (0.7-1.2) mg/dL GFR Calculation Glucose (65-115) mg/dL Calculated Osmolal ity (285-295) mOsm/k g Calcium (8.5-10.5) mg/dL Total Bilirubin (0.15-1.2) mg/dL AST (0-40) U/L ALT (0-41) U/L Alkaline Phosphata se (40-130) IU/L Total Protein (6.6-8.7) g/dL Albumin (3.5-5.2) g/dL Globulin (1.3-4.6) g/dL Urine Color Yellow (Yellow) Urine Appearance Clear (CLEAR) Urine pH 5 (5-7) Ur Specific Gravit y 1.020 (1.005-1.030) Urine Protein 1+ H (Negative) Urine Glucose (UA) 2+ (Normal) Urine Ketones Negative (Negative) Urine Blood 2+ H (Negative) Urine Nitrate Negative (Negative) Urine Bilirubin 1+ H (Negative) Urine Urobilinogen 4 H (Negative) mg/dL Ur Leukocyte Janie ase Negative (Negative) Urine RBC 0-4 H (0-2) /hpf Urine WBC 0-4 H (0-5) /hpf Ur Squamous Epith Cells 0-4 H (0-5) /hpf Amorphous Sediment 1+ /hpf Urine Bacteria Trace (NONE) /hpf Urine Mucus Trace /hpf SARS-CoV-2 Ag (Rap id) (Negative) COVID Results: SARS-CoV-2 Antigen (Rapid) Positive (Negative) H 11/16/20 16:30 11/16/20 Discharge Plan Discharge Patient Disposition: Admitted As Inpatient Admit Provider: Philip James Clinical Impression: Pneumonia due to COVID-19 virus, Diabetes, Hypertension, History of coronary artery disease Condition: Stable Coding Level of Care Code ED Electrical Engineer for Saad Fwd Exam Comprehensive
[2020-11-16 16:42] LABS: Basophils % 0.7 %; Hematocrit 51.4 % (42.0-52.0); Hemoglobin 16.4 g/dL (11.7-16.6); Lymphocytes # 0.6 10^3/uL (0.8-4.8); Lymphocytes % 20.9 %; Mean Corpuscular HGB Conc 31.9 g/dL (30.0-36.0); Mean Corpuscular Volume 90.8 fL (80-94); Monocytes # 0.3 10^3/uL (0.2-0.9); Neutrophils # 1.97 10^3/uL (1.8-7.7); Neutrophils % 65.4 %; Nucleated Red Blood Cells % 0 %; Platelet Count 105 10^3/cmm (130-400); Red Blood Count 5.66 10^6/uL (4.1-5.3); Red Cell Distribution Width 15.1 % (12.1-15.1)
--- NOTE | 2020-11-16 16:58 | CTR_ITS ---
PROCEDURE INFORMATION: Exam: CT Angiography Chest With Contrast Exam date and time: 11/16/2020 5:46 PM Age: 80 years old Clinical indication: Cough and shortness of breath; Prior surgery; Surgery type: Stents; Additional info: Cough dyspnea hypxia suspected covid TECHNIQUE: Imaging protocol: Computed tomographic angiography of the chest with contrast. 3D rendering (Not supervised by radiologist): MIP and/or 3D reconstructed images were created by the technologist. Radiation optimization: All CT scans at this facility use at least one of these dose optimization techniques: automated exposure control; mA and/or kV adjustment per patient size (includes targeted exams where dose is matched to clinical indication); or iterative reconstruction. Contrast material: VISI 320; Contrast volume: 93 ml; Contrast route: INTRAVENOUS (IV); COMPARISON: CR XR chest 1V portable [id number] 11/16/2020 4:07 PM RADIATION DOSE METRICS: Total DLP (mGy-cm): 618.72 FINDINGS: Limitations: Right shoulder prosthesis creates beam hardening artifact, which somewhat limits visualization of the upper thorax. Study also limited by respiratory motion artifact. Pulmonary arteries: Pulmonary arteries are well opacified. Pulmonary arteries are normal in caliber. No filling defects are demonstrated. No evidence of pulmonary embolism. Aorta: Atherosclerosis of the thoracic aorta. No aortic aneurysm or dissection. Lungs: Bilateral nonspecific ground-glass infiltrates throughout both lungs. Pleural spaces: No pleural effusion or pneumothorax noted. Heart: Mild cardiomegaly is noted. Atherosclerotic calcifications are seen in the coronary arteries. No pericardial effusion. Lymph nodes: Unremarkable. No enlarged lymph nodes. Stomach and bowel: There is diverticulosis of the visualized portion of the colon. Bones/joints: Right shoulder prosthesis noted. Degenerative changes of the thoracic spine. Mild thoracic scoliosis. No acute osseous abnormality. Soft tissues: Unremarkable. Other findings: No acute abnormality demonstrated in the upper abdomen. CT/CT angio chest PE protcl [id number] IMPRESSION: 1. Right shoulder prosthesis creates beam hardening artifact, which somewhat limits visualization of the upper thorax. Study also limited by respiratory motion artifact. 2. Pulmonary arteries appear unremarkable. No evidence of pulmonary embolism. 3. No evidence of thoracic aortic aneurysm or dissection. 4. Bilateral nonspecific ground-glass infiltrates throughout both lungs. Commonly reported imaging features of COVID-19 pneumonia are present. Other processes such as influenza pneumonia and organizing pneumonia, as can be seen with drug toxicity and connective tissue disease, can cause a similar imaging pattern. (Reference: Yadiel) 5. Mild cardiomegaly is noted. REFERENCES: Yadiel Gomez, et al., Radiological Society of [place] Expert Consensus Statement on Reporting Chest CT Findings Related to COVID-19. Endorsed by the Society of Thoracic Radiology, the [place] [employer], and RSNA. Published December 16, 2019. Radiation Dose CTDIVOL = (mGy): DLP = 618.72 (mGy-cm)
[2020-11-16 17:28] LABS: SARS Covid-2 Antigen Positive (Negative)
[2020-11-16] MEDS: iodixanol 320 mg/mL 100mL Btl IV (17:58)
--- NOTE | 2020-11-16 18:22 | PM.HP ---
Providers/Chief Complaint Admitting Physician: Philip James MD Primary Care Provider: Mauro Cerna Chief Complaint: Dehydrated/ diarhea History of Present Illness Martha Hector is a 80 year old male with a past medical history of CAD stenting x6, noninsulin-dependent type 2 diabetes mellitus, history of meningioma, CKD, GERD, hypertension, history of TIA who presents to [facility] due to a few day history of fatigue, malaise, shortness of breath, fevers, chills, diarrhea. Patient denies a history of COPD, denies history of smoking, no history of asthma. No history of heart failure, has CAD, no chest pain, no palpitations. Patient states that his fatigue, malaise has worsened, he does get short of breath with exertion. In the emergency room patient was found to be hypoxic, requiring 2 L nasal cannula, CT angiogram negative for pulmonary emboli, Covid test was positive. Review of Systems Const: Reports: fever(s), chills, fatigue and malaise Eyes: Denies: change in vision or blurry vision ENMT: Denies: nasal congestion Resp: Reports: dyspnea; Denies: productive cough, non-productive cough or wheezing GI: Reports: diarrhea; Denies: abdominal pain, nausea, vomiting, hematemesis, constipation, hematochezia or melena : Denies: flank pain, difficulty urinating, dysuria or urinary frequency Musc: Denies: neck pain or back pain Skin/Breast: Denies: rash Neuro: Denies: headache(s), dizziness or vertigo Psych: Denies: anxiety or depression Endo: Denies: polyuria or polydipsia Medications/Allergies Home Medications Medication Instructions Recorded Confirmed Last Taken Type Lactobacillus acidophilus 1 cap PO BID 01/11/20 11/16/20 Unknown History [Acidophilus] citalopram 20 mg PO DAILY 01/11/20 11/16/20 01/11/20 History fiber 1 tab PO BID 01/11/20 11/16/20 Unknown History metformin 1,000 mg PO BID 01/11/20 11/16/20 01/11/20 History metoprolol tartrate 25 mg PO DAILY 01/11/20 11/16/20 01/11/20 History omeprazole 40 mg PO BID 01/11/20 11/16/20 01/11/20 History aspirin [Aspir-81] 81 mg PO QAM 11/16/20 11/16/20 Unknown History loperamide [Imodium A-D] 2 - 4 mg PO PRN 11/16/20 11/16/20 Unknown History ondansetron HCl 8 mg PO TID PRN 11/16/20 11/16/20 Unknown History Allergies Allergy/AdvReac Type Severity Reaction Status Date / Time No Known Allergies Allergy Verified 11/16/20 17:15 PFSH Acute PFSH: Medical History (Updated 11/16/20 @ 18:30 by Philip James MD) Coronary artery disease Diabetes First degree AV block Hypertension Surgical History (Updated 11/16/20 @ 18:29 by Philip James MD) History of intravascular stent placement History of right shoulder replacement Family History (Updated 11/16/20 @ 18:28 by Philip James MD) Father Colon cancer Stroke Mother Diabetes Social History (Updated 11/16/20 @ 18:28 by Philip James MD) Smoking and tobacco status: former smoker Alcohol intake: never Substance/Drug Use: never Vitals/I&O/Wt Last Vital Signs Temp 100.0 F H 11/16/20 15:26 Pulse 85 11/16/20 17:25 Resp 20 H 11/16/20 17:25 BP 135/109 11/16/20 17:25 Pulse Ox 92 11/16/20 16:40 11/16/20 11/16/20 11/16/20 06:59 14:59 22:59 Intake Total 1000 / 1000 Balance 1000 / 1000 Weight last 48 hrs Weight 81.647 kg Physical Exam Const: COMMON NORMALS: no acute distress and patient oriented x3 GENERAL APPEARANCE: cooperative and comfortable HENMT: COMMON NORMALS: normocephalic HEAD & SCALP: normocephalic Eye: COMMON NORMALS: Equal, round and reactive pupils present and EOMs intact bilaterally GENERAL EYE: appearance normal, both eyes and all related structures PUPIL: Yes Equal, round and reactive pupils present Neck/C-Spine: COMMON NORMALS: full ROM, no lymphadenopathy, no JVD and Thyroid normal THYROID: Thyroid normal Lymph: LYMPHATIC: no lymphadenopathy noted Resp: COMMON NORMALS: normal respiratory effort, No retractions, No use of accessory muscles and clear to auscultation bilaterally AUSCULTATION: diminished lung sounds Cardio: COMMON NORMALS: no JVD, regular rate, regular rhythm, S1 normal heart sound present, S2 normal heart sound present, No gallops present (Cardio), No clicks present (Cardio) and No murmurs present (Cardio) RATE: regular rate RHYTHM: regular rhythm HEART SOUNDS: S1 normal heart sound present and S2 normal heart sound present GI: COMMON NORMALS: Normal to inspection, nondistended, normoactive bowel sounds present, Soft to palpation, non-tender and No hepatosplenomegaly present PALPATION: Yes Soft to palpation and Yes No hepatosplenomegaly present Extremity: COMMON NORMALS: normal to inspection, full ROM and no pedal edema Neuro: COMMON NORMALS: patient oriented x3, CN's II-XII intact bilaterally, moves all extremities and no focal motor deficits Psych: COMMON NORMALS: mental status grossly normal, Normal thought process present and cooperative THOUGHT PROCESS: Normal thought process present Data : 11/16/20 16:00 11/16/20 16:00 Micro: Microbiology 11/16/20 16:41 Blood Culture - Preliminary Blood SPECIMEN COLLECTED 11/16/20 16:40 Blood Culture - Preliminary Blood SPECIMEN COLLECTED A&P Assessment and plan (1) Pneumonia due to COVID-19 virus: -Admit to general medical floors -Decadron 6 mg daily -Remdesivir, EKG daily for QTC, telemetry monitoring, baseline QTC 425 ms -Rocephin and azithromycin for possible secondary bacterial pneumonia -Vitamin C, zinc, vitamin D - Advair, albuterol -Oxygen therapy -Aggressive pulmonary toilet, incentive spirometer, flutter valve -Echocardiogram December 2019 showed EF of 60-Percent, no diastolic dysfunction, Lasix as needed -Low-dose sliding scale -PT OT -Full code -Lovenox for DVT prophylaxis Status: Acute (2) History of coronary artery disease: Status: Acute (3) First degree AV block: Status: Acute (4) Diabetes: Status: Acute (5) Hypertension: Status: Acute Attestations Medical Necessity Statement*: Patient requires hospitalization, inpatient, greater than 2 midnights, for COVID-19 pneumonia Coding Level of Care Code Acute 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
[2020-11-16] MEDS: remdesivir 200 MG in sodium chloride 0.9% (100 ml) 100 ML 100 MG IV (18:25)
[2020-11-16] MEDS: dexamethasone 4 mg/mL INJ 6 MG IVP (18:32)
[2020-11-16 18:33] LABS: Add Urine Microscopic? YES; Bacteria Urine TRACE /hpf; Bilirubin Urine 1+ (Negative); Blood Urine 2+ (Negative); Glucose Urine UA 2+ (Normal); Ketones Urine Negative (Negative); Leukocyte Esterase Urine Negative (Negative); Mucus Urine TRACE /hpf; Nitrate Urine Negative (Negative); Protein Urine 1+ (Negative); RBC Urine 0-4 /hpf (0-2); Squamous Epithelial Cell Urine 0-4 /hpf (0-5); Urine Appearance Clear (CLEAR); Urine Color Yellow (Yellow); Urobilinogen Urine 4 mg/dL (Negative); WBC Urine 0-4 /hpf (0-5); pH Urine 5 (5-7)
[2020-11-16 18:34] LABS: Amorphous Sediment Urine 1+ /hpf
--- NOTE | 2020-11-16 19:54 | PC.NURSE ---
PT ARRIVED TO THIS UNIT AT APPROXIMATELY 1840. THE SALES ENGINEER ACCOUNT MANAGER CHARGE NURSE WAS HERE AND TOLD ME TO LEAVE THE ADMISSION FOR THEM TO DO, THERE IS A NEW NURSE WHO NEEDS THE PRACTICE SO I LEFT THE ADMISSION FOR THE SALES ENGINEER ACCOUNT MANAGER NURSE TO DO PER ORDER FROM THE CHARGE NURSE. WHENEVER PT ARRIVED TO THIS UNIT I HELPED TRANSFER HIM INTO OUR BED AND DID AN ASSESSMENT ON THE PT. PTS HEART RATE IN NORMAL SINUS RHYTHM, LUNGS SOUNDS WERE CLEAR BUT DIMINISHED, ACTIVE BOWEL SOUNDS IN ALL FOUR QUADRANTS, NO EDEMA NOTED, PT DOES APPEAR TO BE MILDLY WEAK. PT IS NOT COMPLAINING OF ANY PAIN. WILL CONTINUE TO MONITOR PT.
[2020-11-16] MEDS: albuterol 8 gm MDI 1 PUFF INHALATION (20:45)
[2020-11-16] MEDS: cholecalciferol (vitamin D3) 5,000 unit Tablet 5000 UNIT PO (21:55)
[2020-11-16] MEDS: ascorbic acid 500 mg Tablet 1000 MG PO (21:55)
[2020-11-16] MEDS: zinc gluconate 50 mg Tablet PO (21:56)
[2020-11-16] MEDS: cefTRIAXone 1,000 MG in sodium chloride 0.9% (plus) 50 ML 100 MG IV (21:56)
[2020-11-16] MEDS: pantoprazole DR 40 mg Tablet PO (21:56)
[2020-11-16] MEDS: enoxaparin 40 mg/0.4 mL Syringe SUBCUT (21:59)
[2020-11-16] MEDS: azithromycin 500 MG in sodium chloride 0.9% 250 ML 250 MG IV (23:47)
[2020-11-17] VITALS (18 sets, daily range): BP systolic 114–159; BP diastolic 60–100; PULSE 63–88; RESP 15–19; TEMP 36.2–37; O2SAT 86–95
[2020-11-17] MEDS: albuterol 8 gm MDI 1 PUFF INHALATION ×5 (00:23→20:51)
[2020-11-17 00:58] LABS: Glucose Point of Care 269 mg/dL (70-110)
[2020-11-17 05:03] LABS: Hematocrit 46.7 % (42.0-52.0); Hemoglobin 15.1 g/dL (11.7-16.6); Lymphocytes # 0.3 10^3/uL (0.8-4.8); Lymphocytes % 17.6 %; Mean Corpuscular HGB Conc 32.3 g/dL (30.0-36.0); Mean Corpuscular Hemoglobin 29.1 pg (28.0-34.0); Mean Platelet Volume 10.3 fL (7.4-10.4); Monocytes # 0.2 10^3/uL (0.2-0.9); Monocytes % 10.8 %; Neutrophils # 1.22 10^3/uL (1.8-7.7); Neutrophils % 69.3 %; Nucleated Red Blood Cells % 0 %; Platelet Count 96 10^3/cmm (130-400); Red Blood Count 5.19 10^6/uL (4.1-5.3); Red Cell Distribution Width 14.9 % (12.1-15.1); White Blood Count 1.8 10^3/uL (4.0-10.0)
[2020-11-17 05:13] LABS: ABG PCO2 40.6 mmHg (35-45); ABG PH Result 7.34 (7.35-7.45); Arterial Blood Gas Hematocrit 46.6 % (42-52); Base Excess ABG -3.7 mmol/L (-2.0-2.0); Blood Gas Sample Type Arterial; HCO3 ABG 21.8 mmol/L (22-26); PO2 ABG 71.7 mmHg (80.0-100.0)
[2020-11-17 05:14] LABS: Blood Gas Sample Site Brachial, right; Oxygen Device NC
[2020-11-17 05:15] LABS: D Dimer 2.23 ug/mIFEU (0-0.59); Lactate (Lactic Acid level) 1.2 mmol/L (0.5-2.2)
[2020-11-17 05:24] LABS: Alanine Aminotransferase 27 U/L (0-41); Albumin Level 3.2 g/dL (3.5-5.2); Alkaline Phosphatase 108 IU/L (40-130); Anion Gap 12.5 (5-19); Aspartate Amino Transferase 25 U/L (0-40); Blood Urea Nitrogen 22 mg/dL (8-23); Calcium 7.8 mg/dL (8.5-10.5); Carbon Dioxide 24 mmol/L (22-29); Chloride 104 mmol/L (98-107); Globulin 3.4 g/dL (1.3-4.6); Glucose 176 mg/dL (65-115); Osmolality Calculated 290 mOsm/kg (285-295); Potassium 4.5 mmol/L (3.5-5.1); Sodium 136 mmol/L (136-145); Total Bilirubin 0.2 mg/dL (0.15-1.2); Total Protein 6.6 g/dL (6.6-8.7)
[2020-11-17 05:34] LABS: C Reactive Protein 19.4 mg/L (0.0-4.9); Magnesium 1.6 mg/dL (1.7-2.3); Phosphorus 2.5 mg/dL (2.5-4.5); Thyroid Stimulating Hormone 0.74 uIU/mL (0.27-4.20)
[2020-11-17] MEDS: aspirin 81 mg EC Tablet PO (05:55)
--- NOTE | 2020-11-17 06:00 | ECG_ITS ---
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 Measurements Intervals [place] Rate: 71 P: -21 DC: 190 QRS: 7 QRSD: 115 T: 16 QT: 400 QTc: 438 Interpretive Statements SINUS RHYTHM WITH OCCASIONAL VENTRICULAR PREMATURE COMPLEXES WITH OCCASIONAL SUPRAVENTRICULAR PREMATURE COMPLEXES INCOMPLETE RIGHT BUNDLE BRANCH BLOCK [90+ ms QRS DURATION, TERMINAL R IN V1/V2, 40+ ms S IN I/aVL/V4/V5/V6] Compared to ECG 01/11/2020 14:05:41 Ventricular premature complex(es) now present Incomplete right bundle-branch block now present First degree AV block no longer present Electronically Signed On 11-17-2020 20:11:49 RETAIL ASSISTANT MANAGER by Gisela Patino M.D. [id number]
[2020-11-17 06:08] LABS: Glucose Point of Care 241 mg/dL (70-110)
[2020-11-17 06:17] LABS: NT Pro B Type Natriuretic Pept 251 pg/mL (0-450); Procalcitonin 0.08 ng/mL (0-0.5)
[2020-11-17 06:25] LABS: Estmated Average Glucose 186; Hemoglobin A1C 8.1 % (4.0-6.0)
[2020-11-17 06:28] LABS: Cholesterol 130 mg/dL (0-200); Creatine Phosphokinase 32 U/L (39-308); HDL Cholesterol 26 mg/dL (60-100); LDL Cholesterol Calculated 89 mg/dL (50-129); LDL HDL Ratio 3.42 RATIO (0.00-3.22); Triglycerides 75 mg/dL (0-150)
[2020-11-17 06:41] LABS: Ferritin 1720 ng/mL (30-400)
--- NOTE | 2020-11-17 07:48 | PC.NURSE ---
Bedside report received from YOLANDA Hutchins and YOLANDA Hernández.
[2020-11-17] MEDS: citalopram 20 mg Tablet PO (08:40)
[2020-11-17] MEDS: pantoprazole DR 40 mg Tablet PO ×2 (08:40→17:54)
[2020-11-17] MEDS: dexamethasone 4 mg/mL INJ 6 MG IVP (08:40)
[2020-11-17] MEDS: ascorbic acid 500 mg Tablet 1000 MG PO ×2 (08:40→17:54)
[2020-11-17] MEDS: metoprolol tartrate 25 mg Tablet PO (08:41)
[2020-11-17] MEDS: cholecalciferol (vitamin D3) 5,000 unit Tablet 5000 UNIT PO (08:41)
[2020-11-17] MEDS: zinc gluconate 50 mg Tablet PO (08:41)
--- NOTE | 2020-11-17 09:11 | US_ITS ---
WS: [id number] ULTRASOUND ABDOMEN LIMITED CLINICAL INFORMATION: thrombocytopenia COMPARISON: None. FINDINGS: Liver Size: Mild hepatomegaly Craniocaudal length: 15.3 cm. Echogenicity: Normal. Surface nodularity: None. Mass (size and location): None. Bile ducts Intrahepatic ducts: Normal. Common bile duct diameter: 0.4 cm. Gallbladder Normal. Gallstones: None. Gallbladder sludge: None. Gallbladder wall thickening: None. Pericholecystic fluid: None. Sonographic Hollis sign: Absent. Pancreas Not well visualized Right kidney: Normal. Hydronephrosis: None. Size: 10.9 cm x 5.4 cm x 7.3 cm. Abdominal aorta and IVC Visualized portions are normal. Ascites: None. US/US liver [id number] IMPRESSION: 1. Mild hepatomegaly. 2. Gallbladder is normal in appearance. No cholelithiasis. Normal common bile duct. 3. No hydronephrosis in right kidney.
--- NOTE | 2020-11-17 10:55 | PC.CHAP ---
Pastoral Care Encounter/Spiritual Assessment Type of Contact [] Declined teller visit [] Patient/Family/Request visit [] Outpatient visit [] Follow-up visit [] Physician referral [] Code/Alert [] Routine visit [] Staff referral [] Actively dying [] Patient sleeping [] Family support [] [] Out of room [] Palliative care [] [x] Receiving care in room [] Pre-surgical visit [] Trauma [] Long length of stay [] ICU visit [x] Other: Covid 19 Relational/Emotional Strength [] Patient feels connected with others/family/visitors/staff [] Distress [] Loneliness/isolation [] Abandonment Spirituality of Patient [] Person of Angie [] Attends Temple of their Angie [] Believes in Prayer [] Reads Bible or Hindu materials [] There are Spiritual issues to be addressed Bi Architect Interventions [] Prayer [] Active listening [] Non-anxious presence [] Spiritual/emotional support [] Crisis/trauma care [] Spiritual counseling [] Bereavement support [] Provided bereavement packet [] Provided Bible/devotional materials [] Provided toy/stuffed animal, coloring book to patient or family member [] Provided Communion [] Anointing/Pandora [] Salvation [] Completed spiritual assessment [] Other: Impact on Illness or Injury [] Angry [] Fearful [] Anxious [] Often cries [] Exhaustion [] Unable to work [] Unable to attend anabaptist [] Unable to walk/stand [] Unable to read [] Unable to drive [] Unable to eat/drink [] Unable to sleep [] Unable to be with family [] Patient intubated [] Other: Summary Covid 19 Time spent with patient 5 mins
[2020-11-17 11:00] LABS: Glucose Point of Care 167 mg/dL (70-110)
[2020-11-17 11:13] LABS: LAB Peripheral Smear Sent for Review
--- NOTE | 2020-11-17 11:42 | PM.PN ---
Subjective Subjective: Interval history: This morning patient was examined, he is doing well, on 2 L, ambulating without significant symptomatology, no fevers, no chills Vitals/I&O/Wt Last Vital Signs Temp 97.2 F L 11/17/20 10:57 Pulse 64 11/17/20 10:57 Resp 17 11/17/20 10:57 BP 143/85 11/17/20 10:57 Pulse Ox 93 11/17/20 10:57 11/16/20 11/17/20 11/17/20 22:59 06:59 14:59 Intake Total 1100 / 1100 300 / 1400 360 / 360 Output Total 360 / 360 700 / 1060 Balance 740 / 740 -400 / 340 360 / 360 Weight last 48 hrs Weight 81.647 kg Physical Exam Const: COMMON NORMALS: no acute distress and patient oriented x3 HENMT: COMMON NORMALS: normocephalic HEAD & SCALP: normocephalic Neck/C-Spine: COMMON NORMALS: no JVD Resp: COMMON NORMALS: normal respiratory effort, No retractions and No use of accessory muscles AUSCULTATION: diminished lung sounds Cardio: COMMON NORMALS: no JVD, regular rate, regular rhythm, S1 normal heart sound present and S2 normal heart sound present RATE: regular rate RHYTHM: regular rhythm HEART SOUNDS: S1 normal heart sound present and S2 normal heart sound present GI: COMMON NORMALS: Normal to inspection, nondistended, normoactive bowel sounds present, Soft to palpation, non-tender, No hepatosplenomegaly present, no masses and no bruits PALPATION: Yes Soft to palpation and Yes No hepatosplenomegaly present Extremity: COMMON NORMALS: capillary refill normal, no clubbing, cyanosis or edema, no calf tenderness and no pedal edema Neuro: COMMON NORMALS: patient oriented x3 Psych: COMMON NORMALS: mental status grossly normal Data : 11/17/20 04:35 11/17/20 04:35 Micro: Microbiology 11/16/20 16:41 Blood Culture - Preliminary Blood SPECIMEN COLLECTED 11/16/20 16:40 Blood Culture - Preliminary Blood SPECIMEN COLLECTED A&P Assessment and plan (1) Pneumonia due to COVID-19 virus: -Rapid Covid negative, CT evidence of Covid related changes -Admit to general medical floors -Decadron 6 mg daily -Remdesivir, EKG daily for QTC, telemetry monitoring, baseline QTC 425 ms -Rocephin and azithromycin for possible secondary bacterial pneumonia -Vitamin C, zinc, vitamin D - Advair, albuterol -Oxygen therapy -Aggressive pulmonary toilet, incentive spirometer, flutter valve -Echocardiogram December 2019 showed EF of 60-Percent, no diastolic dysfunction, Lasix as needed -Has leukopenia and thrombocytopenia likely bone marrow suppression from COVID-19 infection, will do a peripheral smear, monitor for fevers, monitor counts closely -Low-dose sliding scale -PT OT -Full code -Lovenox for DVT prophylaxis Status: Acute (2) History of coronary artery disease: Status: Acute (3) First degree AV block: Status: Acute (4) Diabetes: Status: Acute (5) Hypertension: Status: Acute (6) Leukopenia: Status: Acute (7) Thrombocytopenia: Status: Acute Attestations Medical Necessity Statement*: She requires hospitalization due to COVID-19 pneumonia, leukopenia, thrombocytopenia Coding Level of Care Code Acute 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
[2020-11-17 12:42] LABS: Hepatitis A Antibody IgM Non-Reactive (Nonreactive); Hepatitis B Core IgM Non-Reactive (Nonreactive); Hepatitis B Surface Antigen Non-Reactive (Nonreactive); Hepatitis C Virus Antibody Non-Reactive (Nonreactive)
--- NOTE | 2020-11-17 14:51 | PC.NURSE ---
Spoke to on the phone. Updated her on pt's status.
[2020-11-17 16:46] LABS: Glucose Point of Care 217 mg/dL (70-110)
[2020-11-17] MEDS: remdesivir 100 MG in sodium chloride 0.9% (100 ml) 100 ML IV (17:53)
[2020-11-17 19:46] LABS: Glucose Point of Care 237 mg/dL (70-110)
[2020-11-17] MEDS: enoxaparin 40 mg/0.4 mL Syringe SUBCUT (20:13)
[2020-11-17] MEDS: azithromycin 500 MG in sodium chloride 0.9% 250 ML 250 MG IV (20:13)
[2020-11-17] MEDS: cefTRIAXone 1,000 MG in sodium chloride 0.9% (plus) 50 ML 100 MG IV (20:13)
[2020-11-18] VITALS (18 sets, daily range): BP systolic 135–169; BP diastolic 56–90; PULSE 68–85; RESP 16–18; TEMP 36.3–36.9; O2SAT 91–96
[2020-11-18] MEDS: albuterol 8 gm MDI 1 PUFF INHALATION ×8 (00:25→23:41)
[2020-11-18 05:27] LABS: Glucose Point of Care 185 mg/dL (70-110)
[2020-11-18 05:35] LABS: Basophils % 0.3 %; Eosinophils % 0.3 %; Hematocrit 45.1 % (42.0-52.0); Hemoglobin 14.6 g/dL (11.7-16.6); Lymphocytes # 0.7 10^3/uL (0.8-4.8); Mean Corpuscular HGB Conc 32.4 g/dL (30.0-36.0); Mean Corpuscular Hemoglobin 28.9 pg (28.0-34.0); Mean Corpuscular Volume 89.1 fL (80-94); Monocytes # 0.3 10^3/uL (0.2-0.9); Monocytes % 9.1 %; Neutrophils # 2.05 10^3/uL (1.8-7.7); Neutrophils % 66.3 %; Nucleated Red Blood Cells % 0 %; Platelet Count 109 10^3/cmm (130-400); Red Blood Count 5.06 10^6/uL (4.1-5.3); Red Cell Distribution Width 15.1 % (12.1-15.1); White Blood Count 3.1 10^3/uL (4.0-10.0)
[2020-11-18 05:37] LABS: ABG PCO2 35.6 mmHg (35-45); ABG PH Result 7.42 (7.35-7.45); Arterial Blood Gas Hematocrit 45.9 % (42-52); Base Excess ABG -1.1 mmol/L (-2.0-2.0); Blood Gas Operator Identificat HARKR; Blood Gas Sample Site Brachial, right; Blood Gas Sample Type Arterial; HCO3 ABG 22.9 mmol/L (22-26); Oxygen Device NC; PO2 ABG 72.7 mmHg (80.0-100.0)
[2020-11-18 05:46] LABS: Lactate (Lactic Acid level) 1.1 mmol/L (0.5-2.2)
[2020-11-18 05:47] LABS: D Dimer 2.04 ug/mIFEU (0-0.59)
[2020-11-18 05:51] LABS: Alanine Aminotransferase 26 U/L (0-41); Alkaline Phosphatase 98 IU/L (40-130); Anion Gap 11.3 (5-19); Aspartate Amino Transferase 24 U/L (0-40); Blood Urea Nitrogen 29 mg/dL (8-23); Carbon Dioxide 25 mmol/L (22-29); Chloride 103 mmol/L (98-107); Globulin 3.3 g/dL (1.3-4.6); Glucose 155 mg/dL (65-115); Osmolality Calculated 289 mOsm/kg (285-295); Potassium 4.3 mmol/L (3.5-5.1); Sodium 135 mmol/L (136-145); Total Bilirubin 0.2 mg/dL (0.15-1.2); Total Protein 6.3 g/dL (6.6-8.7)
--- NOTE | 2020-11-18 06:00 | ECG_ITS ---
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 Measurements Intervals [place] Rate: 75 P: 41 [place]: 251 QRS: 12 QRSD: 115 T: 29 QT: 392 QTc: 439 Interpretive Statements SINUS RHYTHM WITH FIRST DEGREE AV BLOCK WITH OCCASIONAL SUPRAVENTRICULAR PREMATURE COMPLEXES INCOMPLETE RIGHT BUNDLE BRANCH BLOCK [90+ ms QRS DURATION, TERMINAL R IN V1/V2, 40+ ms S IN I/aVL/V4/V5/V6] Compared to ECG 11/17/2020 06:02:25 First degree AV block now present Ventricular premature complex(es) no longer present Electronically Signed On 11-19-2020 11:34:26 RECORDS MANAGEMENT DIRECTOR by Mindi Ayala M.D. [id number]
[2020-11-18 06:07] LABS: C Reactive Protein 12.3 mg/L (0.0-4.9); Magnesium 1.5 mg/dL (1.7-2.3); Phosphorus 1.5 mg/dL (2.5-4.5)
[2020-11-18] MEDS: aspirin 81 mg EC Tablet PO (06:29)
[2020-11-18] MEDS: ondansetron 2 mg/ML SDV 2 mL 4 MG IVP (06:32)
[2020-11-18 06:55] LABS: NT Pro B Type Natriuretic Pept 480 pg/mL (0-450); Procalcitonin 0.08 ng/mL (0-0.5)
[2020-11-18 07:06] LABS: Creatine Phosphokinase 44 U/L (39-308)
[2020-11-18 07:19] LABS: Ferritin 1813 ng/mL (30-400)
[2020-11-18] MEDS: magnesium oxide 400 mg tablet PO ×2 (09:10→18:16)
[2020-11-18] MEDS: phosphorus 250 mg Tablet PO ×2 (09:10→18:24)
[2020-11-18] MEDS: ascorbic acid 500 mg Tablet 1000 MG PO ×2 (09:11→18:16)
[2020-11-18] MEDS: docusate sodium 100 mg Capsule PO ×2 (09:11→18:17)
[2020-11-18] MEDS: cholecalciferol (vitamin D3) 5,000 unit Tablet 5000 UNIT PO (09:11)
[2020-11-18] MEDS: citalopram 20 mg Tablet PO (09:11)
[2020-11-18] MEDS: metoprolol tartrate 25 mg Tablet PO (09:11)
[2020-11-18] MEDS: zinc gluconate 50 mg Tablet PO (09:11)
[2020-11-18] MEDS: pantoprazole DR 40 mg Tablet PO ×2 (09:11→18:17)
[2020-11-18] MEDS: dexamethasone 4 mg/mL INJ 6 MG IVP (09:11)
[2020-11-18 11:27] LABS: Glucose Point of Care 163 mg/dL (70-110)
--- NOTE | 2020-11-18 12:05 | PM.PN ---
Subjective Subjective: Interval history: This morning patient was examined, he tells me he is doing well overall, continues to have 2 L, has some shortness of breath with exertion, reports some anxiety and would like some anxiety medication Vitals/I&O/Wt Last Vital Signs Temp 98.5 F 11/18/20 11:54 Pulse 85 11/18/20 11:54 Resp 18 11/18/20 11:54 BP 135/59 11/18/20 11:54 Pulse Ox 92 11/18/20 11:54 11/17/20 11/18/20 11/18/20 22:59 06:59 14:59 Intake Total 760 / 1120 360 / 360 Output Total 500 / 500 200 / 200 Balance 760 / 1120 -500 / 620 160 / 160 Weight last 48 hrs Weight 81.647 kg Physical Exam Const: COMMON NORMALS: no acute distress and patient oriented x3 HENMT: COMMON NORMALS: normocephalic HEAD & SCALP: normocephalic Neck/C-Spine: COMMON NORMALS: no JVD Resp: COMMON NORMALS: normal respiratory effort, No retractions, No use of accessory muscles and clear to auscultation bilaterally AUSCULTATION: clear to auscultation bilaterally Cardio: COMMON NORMALS: no JVD, regular rate, regular rhythm, S1 normal heart sound present and S2 normal heart sound present RATE: regular rate RHYTHM: regular rhythm HEART SOUNDS: S1 normal heart sound present and S2 normal heart sound present GI: COMMON NORMALS: Normal to inspection, nondistended, normoactive bowel sounds present, Soft to palpation, non-tender, No hepatosplenomegaly present, no masses and no bruits PALPATION: Yes Soft to palpation and Yes No hepatosplenomegaly present Extremity: COMMON NORMALS: capillary refill normal, no clubbing, cyanosis or edema, no calf tenderness and no pedal edema Neuro: COMMON NORMALS: patient oriented x3 Psych: COMMON NORMALS: mental status grossly normal Data : 11/18/20 05:10 11/18/20 05:10 Micro: Microbiology 11/16/20 16:41 Blood Culture - Preliminary Blood NEGATIVE TO DATE 11/16/20 16:40 Blood Culture - Preliminary Blood NEGATIVE TO DATE A&P Assessment and plan (1) Pneumonia due to COVID-19 virus: -Rapid Covid negative, CT evidence of Covid related changes -Admit to general medical floors -Decadron 6 mg daily -Remdesivir, EKG daily for QTC, telemetry monitoring, baseline QTC 425 ms -Rocephin and azithromycin for possible secondary bacterial pneumonia -Vitamin C, zinc, vitamin D - Advair, albuterol -Oxygen therapy -Aggressive pulmonary toilet, incentive spirometer, flutter valve -Echocardiogram December 2019 showed EF of 60-Percent, no diastolic dysfunction, Lasix as needed -Has leukopenia and thrombocytopenia likely bone marrow suppression from COVID-19 infection, will do a peripheral smear, monitor for fevers, monitor counts closely -Low-dose sliding scale -PT OT -Full code -Lovenox for DVT prophylaxis Status: Acute (2) History of coronary artery disease: Status: Acute (3) First degree AV block: Status: Acute (4) Diabetes: Status: Acute (5) Hypertension: Status: Acute (6) Leukopenia: Status: Acute (7) Thrombocytopenia: Status: Acute Additional A&P Information Plan for today, add some Klonopin for anxiety, continue PT OT, aggressive pulmonary toilet, continue antibiotics continue remdesivir continue Decadron, monitor respiratory status closely, de-escalate oxygen therapy Attestations Medical Necessity Statement*: Patient requires hospitalization due to pneumonia secondary COVID-19 Coding Level of Care Code Acute 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
[2020-11-18 16:49] LABS: Glucose Point of Care 236 mg/dL (70-110)
[2020-11-18] MEDS: remdesivir 100 MG in sodium chloride 0.9% (100 ml) 100 ML IV (18:16)
[2020-11-18] MEDS: CLONazepam 0.5 mg Tablet 0.25 MG PO (18:16)
[2020-11-18 21:41] LABS: Glucose Point of Care 174 mg/dL (70-110)
[2020-11-18] MEDS: azithromycin 500 MG in sodium chloride 0.9% 250 ML 250 MG IV (21:42)
[2020-11-18] MEDS: enoxaparin 40 mg/0.4 mL Syringe SUBCUT (21:45)
[2020-11-18] MEDS: cefTRIAXone 1,000 MG in sodium chloride 0.9% (plus) 50 ML 100 MG IV (23:24)
[2020-11-19] VITALS (18 sets, daily range): BP systolic 127–168; BP diastolic 72–97; PULSE 69–82; RESP 16–20; TEMP 36.2–37.1; O2SAT 92–95
[2020-11-19] MEDS: albuterol 8 gm MDI 1 PUFF INHALATION ×5 (03:33→20:09)
--- NOTE | 2020-11-19 06:00 | ECG_ITS ---
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 Measurements Intervals [place] Rate: 71 P: 34 SC: 224 QRS: 23 QRSD: 116 T: 43 QT: 374 QTc: 409 Interpretive Statements SINUS RHYTHM WITH FIRST DEGREE AV BLOCK INCOMPLETE RIGHT BUNDLE BRANCH BLOCK [90+ ms QRS DURATION, TERMINAL R IN V1/V2, 40+ ms S IN I/aVL/V4/V5/V6] SEPTAL MYOCARDIAL INFARCTION [40+ ms Q WAVE IN V1/V2], PROBABLY OLD Compared to ECG 11/18/2020 05:28:51 Myocardial infarct finding now present Electronically Signed On 11-21-2020 19:05:09 DEATH SURVEYS CODER by Jose Lamb M.D. [id number]
[2020-11-19 06:37] LABS: Basophils % 0.6 %; Eosinophils % 0.6 %; Hematocrit 47.2 % (42.0-52.0); Hemoglobin 15.3 g/dL (11.7-16.6); Lymphocytes # 0.8 10^3/uL (0.8-4.8); Lymphocytes % 24.3 %; Mean Corpuscular HGB Conc 32.4 g/dL (30.0-36.0); Mean Corpuscular Hemoglobin 28.5 pg (28.0-34.0); Mean Corpuscular Volume 88.1 fL (80-94); Monocytes # 0.3 10^3/uL (0.2-0.9); Monocytes % 8.1 %; Neutrophils # 2.24 10^3/uL (1.8-7.7); Neutrophils % 64.7 %; Nucleated Red Blood Cells % 0 %; Platelet Count 134 10^3/cmm (130-400); Red Blood Count 5.36 10^6/uL (4.1-5.3); Red Cell Distribution Width 15.3 % (12.1-15.1); White Blood Count 3.5 10^3/uL (4.0-10.0)
[2020-11-19 06:46] LABS: D Dimer 2.07 ug/mIFEU (0-0.59)
[2020-11-19] MEDS: aspirin 81 mg EC Tablet PO (06:55)
[2020-11-19 07:00] LABS: Procalcitonin 0.07 ng/mL (0-0.5)
[2020-11-19 07:12] LABS: Alanine Aminotransferase 24 U/L (0-41); Albumin Level 3.1 g/dL (3.5-5.2); Alkaline Phosphatase 99 IU/L (40-130); Anion Gap 14.4 (5-19); Aspartate Amino Transferase 24 U/L (0-40); Blood Urea Nitrogen 23 mg/dL (8-23); Calcium 8.2 mg/dL (8.5-10.5); Carbon Dioxide 22 mmol/L (22-29); Chloride 104 mmol/L (98-107); Creatine Phosphokinase 38 U/L (39-308); Globulin 3.4 g/dL (1.3-4.6); Glucose 139 mg/dL (65-115); Magnesium 1.5 mg/dL (1.7-2.3); Osmolality Calculated 288 mOsm/kg (285-295); Phosphorus 1.6 mg/dL (2.5-4.5); Potassium 4.4 mmol/L (3.5-5.1); Sodium 136 mmol/L (136-145); Total Bilirubin 0.3 mg/dL (0.15-1.2); Total Protein 6.5 g/dL (6.6-8.7)
[2020-11-19 07:17] LABS: Glucose Point of Care 150 mg/dL (70-110)
[2020-11-19 07:27] LABS: Ferritin 1777 ng/mL (30-400)
[2020-11-19 07:28] LABS: NT Pro B Type Natriuretic Pept 690 pg/mL (0-450)
[2020-11-19] MEDS: phosphorus 250 mg Tablet PO ×2 (08:43→17:42)
[2020-11-19] MEDS: ascorbic acid 500 mg Tablet 1000 MG PO ×2 (08:43→17:42)
[2020-11-19] MEDS: magnesium oxide 400 mg tablet PO ×2 (08:43→17:42)
[2020-11-19] MEDS: cholecalciferol (vitamin D3) 5,000 unit Tablet 5000 UNIT PO (08:43)
[2020-11-19] MEDS: zinc gluconate 50 mg Tablet PO (08:43)
[2020-11-19] MEDS: ondansetron 2 mg/ML SDV 2 mL 4 MG IVP (08:44)
[2020-11-19] MEDS: dexamethasone 4 mg/mL INJ 6 MG IVP (08:44)
[2020-11-19] MEDS: docusate sodium 100 mg Capsule PO ×2 (08:44→17:42)
[2020-11-19] MEDS: citalopram 20 mg Tablet PO (08:44)
[2020-11-19] MEDS: metoprolol tartrate 25 mg Tablet PO (08:44)
[2020-11-19] MEDS: pantoprazole DR 40 mg Tablet PO ×2 (08:44→17:42)
--- NOTE | 2020-11-19 11:07 | P.PN_ITS ---
Subjective Subjective: Interval history: Patient was seen this morning, he is doing well, he is down to 1 L, no fevers overnight, blood pressures were a bit elevated during the night, Vitals/I&O/Wt Last Vital Signs Temp 97.2 F L 11/19/20 08:00 Pulse 77 11/19/20 08:53 Resp 18 11/19/20 08:53 BP 151/97 11/19/20 08:00 Pulse Ox 94 11/19/20 08:53 11/18/20 11/19/20 11/19/20 22:59 06:59 14:59 Intake Total 460 / 1240 300 / 1540 240 / 240 Output Total 540 / 940 915 / 1855 100 / 100 Balance -80 / 300 -615 / -315 140 / 140 Physical Exam Const: COMMON NORMALS: no acute distress and patient oriented x3 HENMT: COMMON NORMALS: normocephalic HEAD & SCALP: normocephalic Neck/C-Spine: COMMON NORMALS: no JVD Resp: COMMON NORMALS: normal respiratory effort, No retractions, No use of accessory muscles and clear to auscultation bilaterally AUSCULTATION: clear to auscultation bilaterally Cardio: COMMON NORMALS: no JVD, regular rate, regular rhythm, S1 normal heart sound present and S2 normal heart sound present RATE: regular rate RHYTHM: regular rhythm HEART SOUNDS: S1 normal heart sound present and S2 normal heart sound present GI: COMMON NORMALS: Normal to inspection, nondistended, normoactive bowel sounds present, Soft to palpation, non-tender, No hepatosplenomegaly present, no masses and no bruits PALPATION: Yes Soft to palpation and Yes No hepatosplenomegaly present Extremity: COMMON NORMALS: capillary refill normal, no clubbing, cyanosis or edema, no calf tenderness and no pedal edema Neuro: COMMON NORMALS: patient oriented x3 Psych: COMMON NORMALS: mental status grossly normal Data : 11/19/20 06:19 11/19/20 06:19 A&P Assessment and plan (1) Pneumonia due to COVID-19 virus: -Rapid Covid negative, CT evidence of Covid related changes -Admit to general medical floors -Decadron 6 mg daily -Remdesivir, EKG daily for QTC, telemetry monitoring, baseline QTC 425 ms -Rocephin and azithromycin for possible secondary bacterial pneumonia -Vitamin C, zinc, vitamin D - Advair, albuterol -Oxygen therapy -Aggressive pulmonary toilet, incentive spirometer, flutter valve -Echocardiogram December 2019 showed EF of 60-Percent, no diastolic dysfunction, Lasix as needed -Has leukopenia and thrombocytopenia likely bone marrow suppression from COVID- 19 infection, will do a peripheral smear, monitor for fevers, monitor counts closely -Low-dose sliding scale -PT OT -Full code -Lovenox for DVT prophylaxis Status: Acute (2) History of coronary artery disease: Status: Acute (3) First degree AV block: Status: Acute (4) Diabetes: Status: Acute (5) Hypertension: Status: Acute (6) Leukopenia: Status: Acute (7) Thrombocytopenia: Status: Acute Additional A&P Information Plan for today, continue PT OT, continue pulmonary toilet, continue Decadron, continue remdesivir, monitor respiratory status, de-escalate oxygen therapy, likely discharge tomorrow after last dose of remdesivir Attestations Medical Necessity Statement*: Patient requires hospitalization due to pneumonia dissected to COVID-19 Coding Level of Care Code 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
[2020-11-19 11:27] LABS: Glucose Point of Care 250 mg/dL (70-110)
--- NOTE | 2020-11-19 13:17 | PC.SOCIAL ---
IM follow up explained and form provided for reference. Patient verbalized understanding and posed no questions when asked.
[2020-11-19 17:16] LABS: Glucose Point of Care 257 mg/dL (70-110)
[2020-11-19] MEDS: remdesivir 100 MG in sodium chloride 0.9% (100 ml) 100 ML IV (17:41)
[2020-11-19] MEDS: enoxaparin 40 mg/0.4 mL Syringe SUBCUT (20:43)
[2020-11-19] MEDS: azithromycin 250 mg Tablet PO (20:43)
[2020-11-19] MEDS: CLONazepam 0.5 mg Tablet 0.25 MG PO (20:44)
[2020-11-19] MEDS: cefTRIAXone 1,000 MG in sodium chloride 0.9% (plus) 50 ML 100 MG IV (20:48)
[2020-11-19 23:10] LABS: Glucose Point of Care 242 mg/dL (70-110)
[2020-11-20] VITALS (13 sets, daily range): BP systolic 129–173; BP diastolic 72–94; PULSE 63–80; RESP 16–19; TEMP 36.4–37; O2SAT 90–93
[2020-11-20] MEDS: albuterol 8 gm MDI 1 PUFF INHALATION ×4 (00:17→11:39)
[2020-11-20 05:02] LABS: Basophils % 0.3 %; Eosinophils % 0.3 %; Hematocrit 45.5 % (42.0-52.0); Hemoglobin 15.1 g/dL (11.7-16.6); Lymphocytes # 0.9 10^3/uL (0.8-4.8); Mean Corpuscular HGB Conc 33.2 g/dL (30.0-36.0); Mean Corpuscular Hemoglobin 29.4 pg (28.0-34.0); Mean Corpuscular Volume 88.5 fL (80-94); Mean Platelet Volume 9.8 fL (7.4-10.4); Monocytes # 0.3 10^3/uL (0.2-0.9); Monocytes % 7.5 %; Neutrophils # 2.17 10^3/uL (1.8-7.7); Neutrophils % 64.7 %; Nucleated Red Blood Cells % 0 %; Platelet Count 145 10^3/cmm (130-400); Red Blood Count 5.14 10^6/uL (4.1-5.3); White Blood Count 3.4 10^3/uL (4.0-10.0)
[2020-11-20] MEDS: aspirin 81 mg EC Tablet PO (05:11)
[2020-11-20 06:04] LABS: NT Pro B Type Natriuretic Pept 716 pg/mL (0-450); Procalcitonin 0.06 ng/mL (0-0.5)
[2020-11-20 06:19] LABS: Alanine Aminotransferase 30 U/L (0-41); Albumin Level 3.1 g/dL (3.5-5.2); Alkaline Phosphatase 101 IU/L (40-130); Anion Gap 14.3 (5-19); Aspartate Amino Transferase 24 U/L (0-40); Blood Urea Nitrogen 24 mg/dL (8-23); Calcium 7.9 mg/dL (8.5-10.5); Carbon Dioxide 22 mmol/L (22-29); Chloride 105 mmol/L (98-107); Globulin 3.4 g/dL (1.3-4.6); Glucose 175 mg/dL (65-115); Osmolality Calculated 292 mOsm/kg (285-295); Potassium 4.3 mmol/L (3.5-5.1); Sodium 137 mmol/L (136-145); Total Bilirubin 0.2 mg/dL (0.15-1.2); Total Protein 6.5 g/dL (6.6-8.7)
[2020-11-20 06:40] LABS: Glucose Point of Care 195 mg/dL (70-110)
[2020-11-20 08:01] LABS: INR 1.06 (0.8-1.2)
[2020-11-20] MEDS: zinc gluconate 50 mg Tablet PO (09:29)
[2020-11-20] MEDS: metoprolol tartrate 25 mg Tablet PO (09:30)
[2020-11-20] MEDS: pantoprazole DR 40 mg Tablet PO ×2 (09:30→16:57)
[2020-11-20] MEDS: phosphorus 250 mg Tablet PO ×2 (09:30→16:57)
[2020-11-20] MEDS: magnesium oxide 400 mg tablet PO ×2 (09:30→16:57)
[2020-11-20] MEDS: ascorbic acid 500 mg Tablet 1000 MG PO ×2 (09:30→16:57)
[2020-11-20] MEDS: cholecalciferol (vitamin D3) 5,000 unit Tablet 5000 UNIT PO (09:30)
[2020-11-20] MEDS: docusate sodium 100 mg Capsule PO ×2 (09:30→16:57)
[2020-11-20] MEDS: citalopram 20 mg Tablet PO (09:30)
[2020-11-20] MEDS: dexamethasone 4 mg/mL INJ 6 MG IVP (09:31)
[2020-11-20] MEDS: FUROsemide 10 mg/mL SDV 4mL 40 MG IVP (10:29)
[2020-11-20 11:07] LABS: Glucose Point of Care 279 mg/dL (70-110)
[2020-11-20] MEDS: ondansetron 2 mg/ML SDV 2 mL 4 MG IVP (12:04)
--- NOTE | 2020-11-20 13:25 | P.DS_ITS ---
Discharge Providers Date of Admission: 11/16/20 17:52 Date of Discharge: November 20, 2020 Attending Provider at Admission: Philip James MD Attending Provider at Discharge: Philip James MD Primary Care Provider: Mauro Cerna Diagnoses at Discharge Discharge Diagnosis (1) Pneumonia due to COVID-19 virus: Status: Acute (2) History of coronary artery disease: Status: Acute (3) First degree AV block: Status: Acute (4) Diabetes: Status: Acute (5) Hypertension: Status: Acute (6) Leukopenia: Status: Acute (7) Thrombocytopenia: Status: Acute Reason for Visit Reason for Visit: Dehydrated/ diarhea Hospital Course Hospital Course This is a 80-year-old male with past medical history of noninsulin-dependent type 2 diabetes mellitus, hypertension, CAD, who presents to [facility] due to complaints of shortness of breath and diarrhea Patient was admitted to [facility] for acute respiratory failure thrombocytopenia, leukopenia secondary COVID-19 pneumonia, admitted to general medical floors, received Decadron, remdesivir, Rocephin and azithromycin, vitamin C, zinc, vitamin D, Advair, albuterol, oxygen therapy, aggressive pulmonary toilet clinically monitored. Patient clinically improved, weaned down to room air, he did receive a full 5 days of remdesivir. I have discharged the patient on vitamin C, zinc, vitamin D, albuterol, Advair with close follow-up with primary care provider as outpatient I also had a discussion with patient about anticoagulation for Covid patients after hospital discharge, it was clear to patient that there is no good randomized clinical trials to establish the efficacy and safety of anticoagulation for COVID-19 patients. However most observational studies show that COVID-19 patients suffer increased risk of DVTs, PEs, MIs and strokes after discharge. After discussion of the risks and benefits, he voiced recently, all questions answered, agreed to proceed with Eliquis 2.5 mg twice daily. This should only be continued for 3 months after hospital discharge. Patient should monitor for bloody and black stools, if so he should go to the emergency room. Follow-up with primary care provider in 1 week for repeat CBC. Physical Exam Const: COMMON NORMALS: no acute distress and patient oriented x3 HENMT: COMMON NORMALS: normocephalic HEAD & SCALP: normocephalic Neck/C-Spine: COMMON NORMALS: no JVD Resp: COMMON NORMALS: normal respiratory effort, No retractions, No use of accessory muscles and clear to auscultation bilaterally AUSCULTATION: clear to auscultation bilaterally Cardio: COMMON NORMALS: no JVD, regular rate, regular rhythm, S1 normal heart sound present and S2 normal heart sound present RATE: regular rate RHYTHM: regular rhythm HEART SOUNDS: S1 normal heart sound present and S2 normal heart sound present GI: COMMON NORMALS: Normal to inspection, nondistended, normoactive bowel sounds present, Soft to palpation, non-tender, No hepatosplenomegaly present, no masses and no bruits PALPATION: Yes Soft to palpation and Yes No hepatosplenomegaly present Extremity: COMMON NORMALS: capillary refill normal, no clubbing, cyanosis or edema, no calf tenderness and no pedal edema Neuro: COMMON NORMALS: patient oriented x3 Psych: COMMON NORMALS: mental status grossly normal Discharge Data Data Completed and Pending: Completed Studies During Hospitalization Category Date Time Status CT angio chest PE protcl 47211 Stat Cat Scan 11/16/20 16:58 Completed XR chest 1V darrius ble [id number] Stat Exams 11/16/20 15:57 Completed US liver [id number] Ro utine Ultrasound 11/17/20 09:11 Completed Pending at discharge Category Date Time Status Blood Culture Sta t Lab 11/16/20 16:41 Results C Reactive Protei n AM LABS Lab 11/21/20 04:00 Ordered C Reactive Protei n AM LABS Lab 11/22/20 04:00 Ordered Magnesium AM LABS Lab 11/21/20 04:00 Ordered Magnesium AM LABS Lab 11/22/20 04:00 Ordered NT Pro B Type Dianelys riuretic Pept QAM Lab 11/21/20 06:00 Ordered NT Pro B Type Dianelys riuretic Pept QAM Lab 11/22/20 06:00 Ordered Phosphorus AM LAB S Lab 11/21/20 04:00 Ordered Phosphorus AM LAB S Lab 11/22/20 04:00 Ordered Procalcitonin AM LABS Lab 11/21/20 04:00 Ordered Procalcitonin AM LABS Lab 11/22/20 04:00 Ordered Prothrombin Time INR AM LABS Lab 11/21/20 04:00 Ordered Prothrombin Time INR AM LABS Lab 11/22/20 04:00 Ordered Labs from last 24 hours 11/20/20 11/20/20 11/20/20 10:54 06:31 04:40 WBC RBC Hgb Hct MCV MCH MCHC RDW Plt Count MPV Neut % (Auto) Lymph % (Auto) [place] % (Auto) Eos % (Auto) Baso % (Auto) Neut # (Auto) Lymph # (Auto) [place] # (Auto) Eos # (Auto) Baso # (Auto) Nucleated RBC % (a uto) Nucleated RBCs # PT INR Sodium 137 Potassium 4.3 Chloride 105 Carbon Dioxide 22 Anion Gap 14.3 BUN 24 H Creatinine 1.0 GFR Calculation Not Reportable Glucose 175 H POC Glucose 279 H 195 H Calculated Osmolal ity 292 Calcium 7.9 L Total Bilirubin 0.2 AST 24 ALT 30 Alkaline Phosphata se 101 NT-Pro-B Natriuret Pep 716 H Total Protein 6.5 L Albumin 3.1 L Globulin 3.4 Procalcitonin 0.06 11/20/20 11/20/20 11/19/20 04:40 04:40 23:05 WBC 3.4 L RBC 5.14 Hgb 15.1 Hct 45.5 MCV 88.5 MCH 29.4 MCHC 33.2 RDW 15.0 Plt Count 145 MPV 9.8 Neut % (Auto) 64.7 Lymph % (Auto) 26.0 [place] % (Auto) 7.5 Eos % (Auto) 0.3 Baso % (Auto) 0.3 Neut # (Auto) 2.17 Lymph # (Auto) 0.9 [place] # (Auto) 0.3 Eos # (Auto) 0.0 Baso # (Auto) 0.0 Nucleated RBC % (a uto) 0 Nucleated RBCs # 0.0 PT 14.20 INR 1.06 Sodium Potassium Chloride Carbon Dioxide Anion Gap BUN Creatinine GFR Calculation Glucose POC Glucose 242 H Calculated Osmolal ity Calcium Total Bilirubin AST ALT Alkaline Phosphata se NT-Pro-B Natriuret Pep Total Protein Albumin Globulin Procalcitonin 11/19/20 17:14 WBC RBC Hgb Hct MCV MCH MCHC RDW Plt Count MPV Neut % (Auto) Lymph % (Auto) [place] % (Auto) Eos % (Auto) Baso % (Auto) Neut # (Auto) Lymph # (Auto) [place] # (Auto) Eos # (Auto) Baso # (Auto) Nucleated RBC % (a uto) Nucleated RBCs # PT INR Sodium Potassium Chloride Carbon Dioxide Anion Gap BUN Creatinine GFR Calculation Glucose POC Glucose 257 H Calculated Osmolal ity Calcium Total Bilirubin AST ALT Alkaline Phosphata se NT-Pro-B Natriuret Pep Total Protein Albumin Globulin Procalcitonin Vitals: Last Vital Signs Temp 98.2 F 11/20/20 11:26 Pulse 74 11/20/20 11:40 Resp 16 11/20/20 11:40 BP 129/73 11/20/20 11:26 Pulse Ox 93 11/20/20 11:40 Discharge Plan Discharge Patient Disposition: Home Condition: Stable Prescriptions: New Vitamin C 500 mg Tablet 1,000 mg PO BID 30 Days Qty: 120 RF: 0 Ventolin HFA 90 mcg/actuation Hfa Aerosol Inhaler 1 puff inhalation Q4H.RESPIRATORY Qty: 8.5 RF: 0 cholecalciferol (vitamin D3) 125 mcg (5,000 unit) Tablet 5,000 unit PO DAILY 30 Days Qty: 30 RF: 0 DOK 100 mg Capsule 100 mg PO BID 30 Days Qty: 60 RF: 0 Advair Diskus 250-50 mcg/dose Blister With Device 1 ea inhalation BID.RESPIRATORY 30 Days Qty: 60 RF: 0 Eliquis 2.5 mg tablet 2.5 mg PO BID 30 Days Qty: 60 RF: 0 zinc gluconate 50 mg Tablet 50 mg PO DAILY 30 Days Qty: 30 RF: 0 Continued omeprazole 40 mg capsule,delayed release(DR/EC) 40 mg PO BID RF: 0 citalopram 20 mg tablet 20 mg PO DAILY RF: 0 metformin 1,000 mg tablet 1,000 mg PO BID RF: 0 Lactobacillus acidophilus [Acidophilus] Capsule 1 cap PO BID RF: 0 metoprolol tartrate 25 mg tablet 25 mg PO DAILY RF: 0 fiber 1 tab PO BID RF: 0 ondansetron HCl 8 mg tablet 8 mg PO TID PRN (Reason: Nausea) RF: 0 Imodium A-D 2 mg Tablet 2 - 4 mg PO PRN RF: 0 aspirin 81 mg Tablet,Delayed Release (Dr/Ec) 81 mg PO QAM RF: 0 Discharge Orders: Discharge Order (Routine); Ordered 11/20/20 Ordered By: Philip James Other Ambulatory Orders: Complete Blood Count w/Auto (Routine) Timeframe: 1 Week Location: Determined by Patient Ordered By: Philip James Discharge Diet: Cardiac Discharge Activity: Resume usual activity Patient Instructions: Albuterol (By breathing), Zinc Sulfate (By mouth), Laxative, Stool Softeners (By mouth), Ascorbic Acid (Vitamin C) (By mouth), Fluticasone/Salmeterol (By breathing), Vitamin D (By mouth), Apixaban (By mouth), Pneumonia (DC), Pneumonia Stoplight Activity Restrictions/Additional Instructions: -I have discharged on Eliquis 2.5 mg twice daily for DVT prophylaxis after COVID-19, monitor hemoglobin as outpatient through primary care, if you have bloody or black stools come to the emergency room -Follow-up with primary care provider in 1 week -Continue to self isolate, socially distance, facemask, handwashing, must self isolate for a minimum of 3 weeks from symptom onset -If you have worsening shortness of breath, fevers come back to the emergency room Discharge Attestations Time Spent in Discharge Care*: greater than 30 min Quality Metrics Clinical Quality Measures During this hospital stay, did patient experience: None Coding Level of Care Code 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
[2020-11-20] MEDS: remdesivir 100 MG in sodium chloride 0.9% (100 ml) 100 ML IV (16:57)
[2020-11-20 16:58] LABS: Glucose Point of Care 255 mg/dL (70-110)
--- NOTE | 2020-11-24 09:42 | PC.SOCIAL ---
called to ask how long patient will need to wait before getting the 2nd COVID vaccine. Received first one on 10/24/2020 and scheduled for second on 11/21/2020. During the month of October came down with acute COVID and was hospitalized. Received Remdesivir while here and discharged 11/20/2020. He was told would need to wait for 2nd vaccine. Reached out to Dr Domingo and per her recommendations since he does have some immunity with first vaccine and personal immunity now with having COVID should be fine to wait 3 months to ensure symptoms jeanette and then get second vaccine. Updated and she will make sure he gets this after 3 months.
== END 2020-11-20 18:27 | disposition home or self-care (01) | DRG 177 ==
LOC: ER 15:53 → MEDSURG 18:16
PROVIDERS: Physician Assistant; Admitting Provider Family Medicine; Emergency Provider Family Medicine; PCP Internal Medicine; Visit Provider Family Medicine
DX: U07.1 COVID-19 (principal); J12.82 Pneumonia due to coronavirus disease 2019; J96.00 Acute respiratory failure, unspecified whether with hypoxia or hypercapnia; I25.10 Atherosclerotic heart disease of native coronary artery without angina pectoris; Z95.5 Presence of coronary angioplasty implant and graft; E11.22 Type 2 diabetes mellitus with diabetic chronic kidney disease; I12.9 Hypertensive chronic kidney disease with stage 1 through stage 4 chronic kidney disease, or unspecified chronic kidney disease; N18.9 Chronic kidney disease, unspecified; K21.9 Gastro-esophageal reflux disease without esophagitis; Z86.73 Personal history of transient ischemic attack (TIA), and cerebral infarction without residual deficits; Z96.611 Presence of right artificial shoulder joint; Z87.891 Personal history of nicotine dependence; I44.0 Atrioventricular block, first degree; D69.6 Thrombocytopenia, unspecified; F41.9 Anxiety disorder, unspecified; Z79.82 Long term (current) use of aspirin; Z79.84 Long term (current) use of oral hypoglycemic drugs
CPT/HCPCS: 36415; 36416; 36600; 71045; 71275; 76705; 80053; 80061; 80074; 80500; 81001; 82550; 82728; 82803; 82962; 83036; 83605; 83735; 83880; 84100; 84145; 84443; 85025; 85378; 85610; 86140; 87040; 87426; 93005; 94640; 96365; 96372; 96375; 97110; 97161; 97165; 99285; J0456; J0696; J1100; J1650; J1815; J1940; J2405; J3535; J7030; J7050; Q0144; Q9967

== ENCOUNTER 2021-10-17 07:55 | Inpatient (IN) | payer MEDICARE, OTHER, SELFPAY ==
[2021-10-17] VITALS (20 sets, daily range): BP systolic 93–136; BP diastolic 56–92; PULSE 60–90; RESP 12–21; TEMP 36.6–36.7; O2SAT 94–99; BMI 27.2
--- NOTE | 2021-10-17 08:19 | ECG_ITS ---
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 Measurements Intervals Corn[place] Rate: 79 P: NC: QRS: 42 QRSD: 115 T: 43 QT: 365 QTc: 419 Interpretive Statements Sinus rhythm with first-degree AV block and occasional VENTRICULAR PREMATURE COMPLEXES and PACs MODERATE INTRAVENTRICULAR CONDUCTION DELAY [110+ ms QRS DURATION] MARKED ST ELEVATION, CONSIDER INFERIOR INJURY ACUTE HI Compared to ECG 11/19/2020 06:25:50 Ventricular premature complex(es) now present Aberrant conduction of supraventricular beat(s) now present Intraventricular conduction delay now present ST (T wave) deviation now present Electronically Signed On 10-17-2021 17:22:48 SENIOR CONSULTING MANAGER by Mindi Ayala M.D. [id number]
--- NOTE | 2021-10-17 08:19 | XR_ITS ---
WS: [id number] PORTABLE CHEST HISTORY: STEMI COMPARISON: 11/16/2020, 01/11/[address] 11/16/2020. Lungs are clear and well expanded. No pleural effusion or pneumothorax. Cardiac size: Normal. Mediastinum/Aorta: There is a mildly lobulated contour and increased soft tissue in the RIGHT hilum. This contour with present on prior studies but appears slightly more prominent today. This could be d ue to portable technique. No abnormality was noted in this region on a prior recent chest CT approxim ately one year ago. Mild atherosclerosis aorta. 2 anchors are noted in the LEFT humeral head from rotator cuff repair. Reverse shoulder replacement o n the RIGHT. XR/XR chest 1V portable [id number] IMPRESSION: 1. Mildly lobulated contour of the RIGHT hilum is probably normal for this pat ient. Near similar findings were noted on a study of 01/11/2020 although soft ti ssue does appear slightly more prominent today which could be based on techniqu e. Recommend follow-up chest CT with IV contrast versus two-view chest radiogra ph in the department. 2. Mild atherosclerosis aorta.
--- NOTE | 2021-10-17 08:25 | ED_ITS ---
HPI - Chest Pain General: Chief Complaint: Chest Pain Stated Complaint: CHEST AND BACK PAINS Time Seen by Provider: 10/17/21 08:01 Source: patient Mode of arrival: ambulatory History of Present Illness: HPI narrative: 80-year-old male with a known history of coronary disease presents emergency room with complaint of chest discomfort. He has been having intermittent chest pain for the last week which she interpreted as reflux and he has been taking Pepto-Bismol. Last night while at a basketball game he had began having worsening chest pain requested his bring him home. He came in this morning to still complaining of chest pain 2 out of 10. He reports the worst the pain overnight was an 8 out of 10. He is multiple previous interventions with angioplasty and stenting is not had a bypass. Patient has type II diabetic. He is not currently on any Brilinta or Plavix. Beyond rest patient has not noticed anything that relieves the chest discomfort any exertion even mild exertion does worsen it. MD complaint: chest pain Pertinent past history: coronary artery disease Onset (ago): hour(s) (Approximately 12 hours) Timing of current episode: constant Prior episodes: Yes Onset: during rest Pain location: substernal and left chest Pain radiation: left arm and left shoulder Severity: moderate Pain scale (0-10): 8 Quality: tightness and heaviness Relieving factors: nothing Exacerbating factors: nothing Associated symptoms: Reports dyspnea; Deny abdominal pain, diaphoresis, fever(s), leg edema, nausea, palpitations, sense of impending doom, syncope or vomiting Treatment prior to arrival: none Risk Factors: Coronary artery disease risk factors: diabetes, hyperlipidemia and hypertension Review of Systems Const: Denies: fever(s) or diaphoresis ENMT: Denies: throat pain, ear or mastoid pain, nasal discharge or nasal congestion Card: Denies: palpitations or syncope Resp: Reports: dyspnea GI: Denies: abdominal pain, nausea or vomiting : Denies: flank pain, dysuria, urinary frequency or urinary urgency Skin/Breast: Denies: rash or pruritus PFSH ED PFSH: Medical History Coronary artery disease Diabetes First degree AV block Hypertension Surgical History History of intravascular stent placement History of right shoulder replacement Family History Father Colon cancer Stroke Mother Diabetes Social History Smoking and tobacco status: former smoker Alcohol intake: never History of recent travel: No Physical Exam Const: COMMON NORMALS: no acute distress GENERAL APPEARANCE: cooperative and comfortable ORIENTATION/CONSCIOUSNESS: Yes awake, Yes oriented to person, Yes oriented to place and Yes oriented to time HENMT: COMMON NORMALS: normocephalic, atraumatic and hearing grossly normal bilaterally HEAD & SCALP: normocephalic and atraumatic Neck/C-Spine: COMMON NORMALS: no JVD Resp: COMMON NORMALS: normal respiratory effort, No retractions, No use of accessory muscles and clear to auscultation bilaterally AUSCULTATION: clear to auscultation bilaterally Cardio: COMMON NORMALS: no JVD, regular rate, regular rhythm and No murmurs present (Cardio) RATE: regular rate RHYTHM: regular rhythm GI: COMMON NORMALS: Soft to palpation and No hepatosplenomegaly present AUSCULTATION: Yes normoactive bowel sounds PALPATION: Yes Soft to palpation, No Tenderness to palpation present (GI), No Guarding due to palpation present (GI) and Yes No hepatosplenomegaly present Extremity: COMMON NORMALS: normal to inspection, capillary refill normal, no clubbing, cyanosis or edema, no calf tenderness and no pedal edema Neuro: SENSORIUM/ORIENTATION: Yes oriented to person, Yes oriented to place and Yes oriented to time Skin: COMMON NORMALS: no rashes or lesions noted GENERAL SKIN EXAM: no keyanna hes or lesions noted Course Vital Signs: Vital signs: Vital Signs Temperature 98.1 F 10/17/21 08:00 Pulse Rate 78 10/17/21 08:32 Respiratory Rate 16 10/17/21 08:00 Blood Pressure 110/69 10/17/21 08:32 Pulse Oximetry 94 10/17/21 08:32 MDM - Chest Pain MDM Narrative Medical decision making narrative: EKG presented at 815. STEMI alert called. Patient reports escalating angina for the last week with worsening pain beginning last night and persisting. Is already decreased to a 2 from a max of [address] Bajwa is taking the patient directly to the [facility]. Lab Data Result diagrams: 10/17/21 08:23 10/17/21 08:23 Labs: Laboratory Results WBC 6.5 10^3/uL (4.0-10.0) 10/17/21 08: RBC 5.41 10^6/uL (4.1-5.3) H 10/17/21 08:23 Hgb 15.9 g/dL (11.7-16.6) 10/17/21 08: Hct 48.6 % (42.0-52.0) 10/17/21 08:23 MCV 89.8 fl (80-94) 10/17/21 08: MCH 29.4 pg (28.0-34.0) 10/17/21 08: MCHC 32.7 g/dL (30.0-36.0) 10/17/21 08: RDW 13.0 % (12.1-15.1) 10/17/21 08: Plt Count 178 10^3/cmm (130-400) 10/17/21 08: MPV 10.3 fL (7.4-10.4) 10/17/21 08: Neut % (Auto) 71.0 % 10/17/21 08: Lymph % (Auto) 18.7 % 10/17/21 08:23 [place] % (Auto) 6.0 % 10/17/21 08: Eos % (Auto) 2.0 % 10/17/21 08: Baso % (Auto) 1.1 % 10/17/21 08: Neut # (Auto) 4.63 10^3/uL (1.8-7.7) 10/17/21 08:23 Lymph # (Auto) 1.2 10^3/uL (0.8-4.8) 10/17/21 08: [place] # (Auto) 0.4 10^3/uL (0.2-0.9) 10/17/21 08: Eos # (Auto) 0.1 10^3/uL (0.0-0.8) 10/17/21 08: Baso # (Auto) 0.1 10^3/uL (0.0-0.1) 10/17/21 08: Nucleated RBC % (auto) 0 % 10/17/21 08:23 Nucleated RBCs # 0.0 /100WBC 10/17/21 08:23 PT Cancelled 10/17/21 08:23 INR Cancelled 10/17/21 08:23 APTT Cancelled 10/17/21 08:23 Sodium Cancelled 10/17/21 08:23 Potassium Cancelled 10/17/21 08:23 Chloride Cancelled 10/17/21 08:23 Carbon Dioxide Cancelled 10/17/21 08:23 Anion Gap Cancelled 10/17/21 08:23 BUN Cancelled 10/17/21 08:23 Creatinine Cancelled 10/17/21 08:23 GFR Calculation Cancelled 10/17/21 08:23 Glucose Cancelled 10/17/21 08:23 Calculated Osmolality Cancelled 10/17/21 08:23 Calcium Cancelled 10/17/21 08:23 Total Bilirubin Cancelled 10/17/21 08:23 AST Cancelled 10/17/21 08:23 ALT Cancelled 10/17/21 08:23 Alkaline Phosphatase Cancelled 10/17/21 08:23 Creatine Kinase Cancelled 10/17/21 08:23 CK-MB (CK-2) Cancelled 10/17/21 08:23 CK-MB (CK-2) Rel Index Cancelled 10/17/21 08:23 Troponin T Baseline Cancelled 10/17/21 08:23 Total Protein Cancelled 10/17/21 08:23 Albumin Cancelled 10/17/21 08:23 Globulin Cancelled 10/17/21 08:23 EKG Data EKG 1: EKG interpretation date: 10/17/21 EKG interpretation time: 08:15 Prior EKG tracings: not available for review Ischemic changes: acute STEMI Interpretation: Acute ST elevation in 2 3 and aVF with reciprocal changes. Other EKG comments: EKG presented to me for review at 815 Other Data Attestation for Other Data: I personally reviewed and interpreted the following: Other Data: Acute ST elevation NE Discharge Plan Discharge Patient Disposition: Admitted As Inpatient Clinical Impression: ST elevation myocardial infarction (STEMI), Diabetes, Hypertension Condition: Stable Coding Level of Care Code ED Email Production Specialist for [facility] Fwd Exam Comprehensive
[2021-10-17] MEDS: heparin 5,000 unit/mL INJ 1 mL 4000 UNIT IVP (08:26)
[2021-10-17 08:28] LABS: Basophils # 0.1 10^3/uL (0.0-0.1); Basophils % 1.1 %; Eosinophils # 0.1 10^3/uL (0.0-0.8); Hematocrit 48.6 % (42.0-52.0); Hemoglobin 15.9 g/dL (11.7-16.6); Lymphocytes # 1.2 10^3/uL (0.8-4.8); Lymphocytes % 18.7 %; Mean Corpuscular HGB Conc 32.7 g/dL (30.0-36.0); Mean Corpuscular Hemoglobin 29.4 pg (28.0-34.0); Mean Corpuscular Volume 89.8 fl (80-94); Mean Platelet Volume 10.3 fL (7.4-10.4); Monocytes # 0.4 10^3/uL (0.2-0.9); Neutrophils # 4.63 10^3/uL (1.8-7.7); Nucleated Red Blood Cells % 0 %; Platelet Count 178 10^3/cmm (130-400); Red Blood Count 5.41 10^6/uL (4.1-5.3); White Blood Count 6.5 10^3/uL (4.0-10.0)
[2021-10-17] MEDS: clopidogrel 300 mg Tablet 600 MG PO (08:28)
--- NOTE | 2021-10-17 08:28 | XACV_ITS ---
Exam Room: [facility] Ht: 178 cm Wt: 86 kg BSA: 2.08 m2 Gender: Male : 1940 Any Known Allergies: No known allergies Exam Priority: Routine Indication(s): - Inferior wall CT Procedure(s): Procedure Description: Diagnostic procedure Procedure Description: PCI procedure Procedure Description: Drug Eluting Coronary Stent Procedure Description: PTCA Procedure Description: Miscellaneous Procedure Description: Angio-Seal Procedure Description: ACT Procedure Description: Coronary Angiography Diagnostic Cath Status: Emergency Diagnostic Findings * Left Main has no disease. * Mid Left Anterior Descending to Distal Left Anterior Descending: luminal irregularities 20% stenosis, ZENAIDA: 3 flow. * Distal Right Coronary Artery: total occlusion, ZENAIDA: 0 flow. * Mid Circumflex: significant 80% stenosis, ZENAIDA: 0 flow. * Distal Circumflex: severe 85% stenosis, ZENAIDA: 0 flow. * Coronary angiography shows right dominance. PCI Status: Emergency PCI Indication: Immediate PCI for STEMI Interventional Findings * Distal Right Coronary Artery: 100% stenosis treated with a AB MINI TREK 2.00X20 RX BALLOON, and LUMA Quick GABRIELA 3.0X22 LIZZETH. 0% residual stenosis, ZENAIDA: 3 flow. * Mid Circumflex: 80% stenosis treated with a MDT R GABRIELA 3.0X12 LIZZETH, and MDT NC EUPHORA RX 3.19P06PC BALLOON. 0% residual stenosis, ZENAIDA: 3 flow. * Distal Circumflex: 85% stenosis treated with a AB MINI TREK 2.00X12 RX BALLOON, MDT R GABRIELA 2.75X15 LIZZETH, and MDT JUDY EUPHORA RX 3.18W13CT BALLOON. 0% residual stenosis, ZENAIDA: 3 flow. Conclusions 1. 1- 2. Left main has distal 20% stenosis. 3. 2-LAD is patent previously placed mid stent3-There appeared to mid and distal high-grade 80 and 85% in-stent restenosis4-RCA has distal 100% occlusion which is the culprit vessel.. 4. There is total occlusion coronary artery disease with three vessel disease. 5. Distal Right Coronary Artery was treated with a Balloon, and Drug Eluting Stent. 6. Mid Circumflex was treated with a Drug Eluting Stent, and Balloon. 7. Distal Circumflex was treated with a Balloon, Drug Eluting Stent, and Balloon. Recommendations * 1-Return to inpatient for close monitoring and routine cath care 2-Risk factor modification for secondary prevention 3-Statin and aspirin 81 mg life--long, if tolerated 4-Continue Plavix 75mg p.o. daily for at least one year. We will assess at the end of one year again to continue if further or not 5-Continue optimal medical management 6-Follow up with cardiology in four weeks and your primary care in 10 days. Diagnostic RX Recommendation: PCI w/o planned CABG Pressures Phase:Rest AO : 157 / 86 ( 114 ) @ 6:58:00 AM 157 / 89 ( 121 ) @ 6:59:00 AM 124 / 59 ( 87 ) @ 7:01:00 AM 140 / 74 ( 103 ) @ 7:08:00 AM 133 / 81 ( 106 ) @ 7:26:00 AM 136 / 81 ( 107 ) @ 7:31:00 AM 126 / 87 ( 106 ) @ 7:34:00 AM 140 / 86 ( 110 ) @ 7:36:00 AM 127 / 84 ( 102 ) @ 7:42:00 AM Clinical Evaluation EBL: 5mL-10mL Procedural Details Pre-Procedure Time Out. Identified patient by full name and date of as verbalized by the patient/guarantor. Does the consent match the physician's order: N/A Emergent. Accurate & Complete Informed Consent: N/A Emergent. Inpatient/Outpatient History & Physical on Chart: N/A Emergent. If H&P is completed, is and addenduem needed: N/A Emergent; If yes, is the addendum complete: N/A Emergent. Visualize and Verify Site with Patient/Guarantor: N/A. Relevant Radiology Images available: N/A Emergent. Pre-op teaching completed and patient verbalized understanding. The risks, benefits, and alternatives of sedation and/or procedure were discussed by physician. The patient agrees to continue. Procedure started. [facility] Clinical Fraility Score: 4: Vulnerable. Quality Auditor Indications: ACS <= 24 hours. Chest Pain Symptom Assessment: Typical Angina Symptoms. Correct patient, site and procedure confirmed by cath team. Current diagnosis: STEMI. PERRLA. Strong, equal hand gasket inspector bilaterally. Lungs clear x 5 lobes. IV Site on Arrival: 18 gauge in the left anticubital. IV Fluids: 0.9% NaCl at KVO. 0 mL infused prior to cath lab radiology technician. Oxygen started at 2liters/min via nasal canula. bilateral groins was prepped with chloroprep then draped in the usual sterile fashion. Physician notified. Current Diagnosis : STEMI. Baseline sample Acquired. HR: 85 BPM. AP Pads placed. PCI Indication: STEMI. Physician arrived. Physician scrubbed in. Immediate Pre-Procedure Time Out. Correct Patient: Yes; Correct Procedure: Yes; Correct Site: Yes; Correct Patient Position: Yes; Correct Supplies: Yes; Dried Flammable Prep: Yes; Blood Products Available: N/A Emergent;. Lidocaine 1% infiltrated to the left groin. Arterial access obtained with micropuncture set. wire and needle removed. Arterial access obtained with micropuncture set. Supply: 6F 23 cm Brite Tip Sheath. Sheath upsized to a 6 Fr. Blood drawn and sent to lab. 6 german JR 4 guide catheter was inserted over the wire. Multiple views taken of right coronary artery. [place] guidewire was advanced through the guide catheter to lesion in the distal RCA. Inflation number : 1 A AB MINI TREK 2.00X20 RX BALLOON was prepped and advanced across the Dist RCA , then inflated to 15 YEE for 0:18 seconds. Balloon out. Inflation Number : 2 A MDT R GABRIELA 3.0X22 LIZZETH -Lot Number# _[id number] EXP: 01/18/2024 was prepped and advanced across the Dist RCA. The stent was deployed at 14 YEE for 0:31 seconds. Results checked. Stent balloon and wire out. Results checked. Guide catheter out. A 5 german JL4 catheter in over wire. ACT drawn. Results 372 seconds. Therapeutic limits - pre-heparin administration 90-150 seconds and monitoring heparin during a vascular procedure >250 seconds. Multiple views taken of left coronary artery. PCI Indication : Immediate PCI for STEMI. Catheter removed over the standard wire. 6 german XB 3.5 guide catheter was inserted over the wire. Angiography preformed. Mesa guidewire was advanced through the guide catheter to lesion in the distal Circ. Inflation number : 1 A AB MINI TREK 2.00X12 RX BALLOON was prepped and advanced across the Dist CX , then inflated to 0 YEE for 0:20 seconds. Results checked. Balloon out. Inflation Number : 2 A MDT R GABRIELA 2.75X15 LIZZETH -Lot Number# _[id number]_ EXP: 03/01/2024 was prepped and advanced across the Dist CX. The stent was deployed at 12 YEE for 0:17 seconds. Stent balloon out over wire. Inflation number : 3 A MDT NC EUPHORA RX 3.99T11ME BALLOON was prepped and advanced across the Dist CX , then inflated to 0 YEE for 0:19 seconds. Balloon out. Results checked. Inflation number: 4 The AB MINI TREK 2.00X12 RX BALLOON was reinflated across the Dist CX, to 14 YEE for 0:22 seconds. Inflation number: 5 The AB MINI TREK 2.00X12 RX BALLOON was reinflated across the Dist CX, to 0 YEE for 0:20 seconds. Balloon out. Inflation Number : 1 A MDT R GABRIELA 3.0X12 LIZZETH -Lot Number# _[id number]_ EXP: 07/16/2024 was prepped and advanced across the Mid CX. The stent was deployed at 14 YEE for 0:16 seconds. Stent balloon out over wire. Inflation number: 2 The MDT NC EUPHORA RX 3.20Q21IA BALLOON was reinflated across the Mid CX, to 18 YEE for 0:23 seconds. Balloon and wire out. ACT drawn. Results 200 seconds. Therapeutic limits - pre-heparin administration 90-150 seconds and monitoring heparin during a vascular procedure >250 seconds. A Right femoral angiogram was performed to determine safe placement of closure device. Lidocaine 1% infiltrated to the right groin. A Angio-Seal VIP ([facility]) Lot# [id number] was successful obtaining hemostatsis at the Right Femoral artery insertion site. PERRLA. Strong, equal hand gasket inspector bilaterally. No VTE prophylaxis required. Medication's Wasted: Lidocaine 1% = 10 mL. Total IV fluids: 600 mL. Medication's Wasted: Nitro = 50 mg. Medication's Wasted: Heparin = 3000 units. Contrast type used: Visipaque 320 mgI/mL, 500 mL bottle. Complications: None. Estimated blood loss: 5mL-10mL. Responsiveness - Normal response to verbal stimuli; alert and oriented, PERRLA. Airway - Unaffected, no intervention required; spontaneous ventilation. Circulation: W/N/L, pulses unchanged. Nausea/Vomiting: No. Manual pressure being held on femoral site. Procedure completed. Patient transferred by bed to ICU. Vital chart was stopped. Procedure started. Access Site Site: Right Femoral artery Sheath Size: 6 Fr Hemostasis Method: Angio-Seal VIP ([facility] [facility]) Hemostasis Success: Successful Procedure Medications Start: 8:43 AM Stop: 8:43 AM Medication: Versed Amount: 1 mg Route: I.V. Start: 8:44 AM Stop: 8:44 AM Medication: Fentanyl Amount: 50 mcg Route: I.V. Start: 8:59 AM Stop: 8:59 AM Medication: Heparin Amount: 6000 units Route: I.V. Start: 9:03 AM Stop: 9:03 AM Medication: Aggrastat 12.5 mg/250 mL Amount: 43 ml Route: I.V. bolus Start: 9:03 AM Stop: 9:03 AM Medication: Aggrastat 12.5 mg/250 mL Amount: 15.5 ml/hr Route: I.V. bolus Start: 9:05 AM Stop: 9:05 AM Medication: 0.9% Saline Amount: 500 ml Route: I.V. bolus Start: 9:30 AM Stop: 9:30 AM Medication: Versed Amount: 1 mg Route: I.V. Start: 9:30 AM Stop: 9:30 AM Medication: Fentanyl Amount: 50 mcg Route: I.V. Start: 9:56 AM Stop: 9:56 AM Medication: Heparin Amount: 2000 units Route: I.V. I, the attending physician, have reviewed and verified all procedure medications. Yes, all medications given per verbal order History/Risk Factors Hypertension: No Dyslipidemia: No Peripheral Arterial Disease (PAD): No Myocardial Infarction (CT): No Obesity: No Renal Disease: No Prior Interventions PCI: No CABG: No Valve Surgery: No Report Signatures Finalized by Lester Bajwa MD on 11/01/2021 09:01 PM
[2021-10-17] MEDS: sodium chloride 0.9% 500 ML 999 ML IV (08:29)
[2021-10-17] MEDS: aspirin 325 mg Tablet PO (08:29)
[2021-10-17 09:21] LABS: INR 1.03 (0.8-1.2)
[2021-10-17 09:30] LABS: Alanine Aminotransferase 12 U/L (0-41); Albumin Level 3.7 g/dL (3.5-5.2); Alkaline Phosphatase 102 IU/L (40-130); Anion Gap 17.1 (5-19); Aspartate Amino Transferase 13 U/L (0-40); Blood Urea Nitrogen 28 mg/dL (8-23); Calcium 8.6 mg/dL (8.5-10.5); Carbon Dioxide 18 mmol/L (22-29); Chloride 103 mmol/L (98-107); Creatine Phosphokinase 31 U/L (39-308); Globulin 2.7 g/dL (1.3-4.6); Glucose 226 mg/dL (65-115); Osmolality Calculated 291 mOsm/kg (285-295); Potassium 4.1 mmol/L (3.5-5.1); Sodium 134 mmol/L (136-145); Total Bilirubin 0.2 mg/dL (0.15-1.2); Total Protein 6.4 g/dL (6.6-8.7); Troponin(5th) Baseline 37 ng/L (0-15)
[2021-10-17 09:31] LABS: Partial Thromboplastin Time 110.7 SECONDS (23.9-36.7)
--- NOTE | 2021-10-17 10:16 | P.HP_ITS ---
Providers/Chief Complaint Admitting Physician: Lester Bajwa MD Primary Care Provider: Mauro Cerna Chief Complaint: CHEST AND BACK PAINS History of Present Illness Martha Hector is a 80 year old male past medical history significant for history of coronary artery disease according to patient 03/02 10 years ago who was struggling with chest pain for the past few days until this morning when pain became more consistent he decided to come to the ER. Inferior lead showed ST elevation with reciprocal changes. ST elevation [place] pager was alerted. Patient was brought to the Route Salesman And Driver right groin approach was adopted. He was noted to have 100% occluded distal RCA. It was treated with balloon angioplasty followed by drug-eluting stent with excellent angiographic result. Left coronary arteries were engaged noted to have no significant disease of the left main and LAD however circumflex was noted to have mid and distal significant stenosis. Both those lesion was also treated with drug-eluting stents. Patient was loaded with Plavix given Aggrastat and heparin. He is being transferred to ICU in a stable condition. Medications/Allergies Home Medications Medication Instructions Recorded Confirmed Last Taken Type Lactobacillus acidophilus 1 cap PO BID 01/11/20 10/18/21 Unknown History (Acidophilus) citalopram 20 mg tablet 20 mg PO DAILY 01/11/20 10/18/21 01/11/20 History fiber 1 tab PO BID 01/11/20 10/18/21 Unknown History metoprolol tartrate 25 mg tablet 25 mg PO DAILY 01/11/20 10/18/21 01/11/20 History aspirin 81 mg tablet,delayed 81 mg PO QAM 11/16/20 10/18/21 Unknown History release loperamide 2 mg tablet (Imodium 2 - 4 mg PO PRN 11/16/20 10/18/21 Unknown History A-D) ascorbic acid (vitamin C) 500 mg 250 mg PO DAILY 10/18/21 10/18/21 Unknown Hi story tablet (Vitamin C) atorvastatin 40 mg tablet 80 mg PO BEDTIME #90 tab 10/18/21 Unknown Rx cholecalciferol (vitamin D3) 50 50 mcg PO DAILY 10/18/21 10/18/21 Unknown History mcg (2,000 unit) tablet (Vitamin D3) clopidogrel 75 mg tablet 75 mg PO DAILY #90 tab 10/18/21 Unknown Rx melatonin 10 mg tablet 10 mg PO DAILY 10/18/21 10/18/21 Unknown History nitroglycerin 0.4 mg sublingual 0.4 mg SUBLINGUAL Q5M PRN 10/18/21 10/18/21 Unknown History tablet (Nitrostat) pantoprazole 40 mg tablet,delayed 40 mg PO DAILY 28 Days #90 tab 10/18/21 Unknown Rx release (Protonix) zinc 50 mg tablet 50 mg PO DAILY 10/18/21 10/18/21 Unknown History Allergies Allergy/AdvReac Type Severity Reaction Status Date / Time No Known Allergies Allergy Verified 10/17/21 08:00 PFSH Acute PFSH: Medical History Coronary artery disease Diabetes First degree AV block Hypertension Surgical History History of intravascular stent placement History of right shoulder replacement Family History Father Colon cancer Stroke Mother Diabetes Social History Smoking and tobacco status: former smoker Alcohol intake: never History of recent travel: No Vitals/I&O/Wt Last Vital Signs Temp 98.1 F 10/17/21 08:00 Pulse 78 10/17/21 08:32 Resp 16 10/17/21 08:00 BP 110/69 10/17/21 08:32 Pulse Ox 94 10/17/21 08:32 Weight last 48 hrs Weight 190 lb Physical Exam Chest: OTHER: GENERAL: Patient is alert, awake and oriented x3. NECK: No jugular vein distension. HEENT: No cyanosis. No icterus. No pallor. HEART: Regular S1 and S2. No murmur, rub or gallop. LUNGS: Clear to auscultate bilaterally. ABDOMEN: Soft, nontender and nondistended. Positive bowel sounds. No guarding, rebound or tenderness. CENTRAL NERVOUS SYSTEM: Grossly nonfocal. EXTREMITIES: Lower extremities without edema bilaterally. Data : 10/18/21 02:24 10/18/21 02:24 A&P Assessment and plan (1) ST elevation myocardial infarction (STEMI): Status post PCI to RCA and mid/distal circumflex. Continue aspirin statin Plavix. Echocardiogram will be obtained in the morning. If heart rate remains stable will try beta-duyen. Further plan will advise as per progress of the patient Status: Resolved (2) First degree AV block: Stable continue to monitor Status: Acute (3) Hypertension: Well-controlled continue current regimen Status: Acute Attestations Medical Necessity Statement*: I am expecting his stay to cross more than 2 midnights Coding Level of Care Code New Pt Acute Packaging Sales for Saad Perez Patient Type New History Comprehensive Exam Comprehensive Medical Decision Making High Complexity Diagnoses ST elevation myocardial infarction (STEMI) I21.3 First degree AV block I44.0 Hypertension I10
--- NOTE | 2021-10-17 10:19 | ECG_ITS ---
[facility] Test Date: 2021-10-17 Pat Name: Martha Hector Department: Room: Gender: Male Project Archivist: : 1940 Requested By: Fran Murray Order Number: [id number] Daniel MD: Gisela Patino M.D. Measurements Intervals [place] Rate: 66 P: 37 [place]: 285 QRS: -9 QRSD: 118 T: -50 QT: 384 QTc: 405 Interpretive Statements SINUS RHYTHM WITH FIRST DEGREE AV BLOCK WITH OCCASIONAL VENTRICULAR PREMATURE COMPLEXES INCOMPLETE RIGHT BUNDLE BRANCH BLOCK [90+ ms QRS DURATION, TERMINAL R IN V1/V2, 40+ ms S IN I/aVL/V4/V5/V6] INFERIOR MYOCARDIAL INFARCTION , OF INDETERMINATE AGE [40+ ms Q WAVE AND/OR ST/T ABNORMALITY IN II/aVF] Compared to ECG 10/17/2021 08:10:45 First degree AV block now present Incomplete right bundle-branch block now present Atrial fibrillation no longer present Aberrant conduction of supraventricular beat(s) no longer present Intraventricular conduction delay no longer present ST (T wave) deviation no longer present Myocardial infarct finding still present Electronically Signed On 10-19-2021 0:07:10 PATIENT INFORMATION COORDINATOR by Gisela Patino M.D. [id number]
--- NOTE | 2021-10-17 12:05 | PC.NURSE ---
Pt arrived to ICU with Aggrastat IV running. Dr Bajwa would like for Aggrastat to be discontinued at 1100 per YOLANDA Perez Aquatics Coordinator. Aggrastat discontinued at 1100.
[2021-10-17] MEDS: sodium chloride 0.9% 1,000 ML 100 ML IV ×2 (16:25→20:35)
--- NOTE | 2021-10-17 20:23 | PC.NURSE ---
Pt got out of bed and proceeded to urinate standing up less than 30 minutes after arriving to unit. Guided pt back to bed and assisted with urinal. Reminded pt regarding bedrest, keeping leg straight and risks. Pt indicated understanding. Small amount of blood noted on dressing. Less than a dime. Circled. Palpated grape-sized hardened area. Site monitored throughout the day. No additional blood noted on dressing. Bruising formed around dressing and site two different times. Areas circled both times. Hardened area consistently grape to small walnut sized. No change in physical assessment or vital signs. No pain mentioned. Dr Bajwa notified but not concerned at this time. Believes it may be closure placed in coreroom foundry laborer.
[2021-10-17] MEDS: pantoprazole DR 40 mg Tablet PO (20:35)
--- NOTE | 2021-10-17 21:29 | PC.NURSE ---
Report called to CSU at 2106. All questions answered at the time of report. All patient belongings transferred with patient to room 105. notified and aware of patient transfer.
[2021-10-17] MEDS: temazepam 15 mg Capsule PO (21:38)
[2021-10-17] MEDS: atorvastatin 40 mg Tablet 80 MG PO (21:38)
[2021-10-18 03:48] LABS: Basophils % 0.7 %; Eosinophils # 0.2 10^3/uL (0.0-0.8); Eosinophils % 2.6 %; Hematocrit 43.9 % (42.0-52.0); Hemoglobin 13.7 g/dL (11.7-16.6); Lymphocytes % 17.2 %; Mean Corpuscular HGB Conc 31.2 g/dL (30.0-36.0); Mean Platelet Volume 10.5 fL (7.4-10.4); Monocytes # 0.5 10^3/uL (0.2-0.9); Monocytes % 8.7 %; Neutrophils % 69.6 %; Nucleated Red Blood Cells % 0 %; Platelet Count 155 10^3/cmm (130-400); Red Blood Count 4.72 10^6/uL (4.1-5.3); Red Cell Distribution Width 13.2 % (12.1-15.1); White Blood Count 5.9 10^3/uL (4.0-10.0)
[2021-10-18 04:01] VITALS: BP 100/55; PULSE 67; RESP 16; TEMP 36.6; O2SAT 94
[2021-10-18 04:14] LABS: Anion Gap 15.6 (5-19); Blood Urea Nitrogen 26 mg/dL (8-23); Calcium 8.9 mg/dL (8.5-10.5); Carbon Dioxide 19 mmol/L (22-29); Chloride 108 mmol/L (98-107); Glucose 163 mg/dL (65-115); Osmolality Calculated 294 mOsm/kg (285-295); Potassium 4.6 mmol/L (3.5-5.1); Sodium 138 mmol/L (136-145)
[2021-10-18 04:16] LABS: Troponin T (5th) Once 3699 ng/L (0-15)
[2021-10-18 05:05] VITALS: PULSE 62
[2021-10-18] MEDS: sodium chloride 0.9% 1,000 ML 100 ML IV (05:50)
[2021-10-18] MEDS: aspirin 81 mg EC Tablet PO (08:40)
[2021-10-18] MEDS: clopidogrel 75 mg Tablet PO (08:40)
[2021-10-18] MEDS: pantoprazole DR 40 mg Tablet PO (08:41)
--- NOTE | 2021-10-18 10:20 | PC.CHAP ---
Pastoral Care Encounter/Spiritual Assessment Type of Contact [] Declined painting supervisor visit [] Patient/Family/Request visit [] Outpatient visit [] Follow-up visit [] Physician referral [] Code/Alert [x] Routine visit [] Staff referral [] Actively dying [] Patient sleeping [x] Family support [] [] Out of room [] Palliative care [] [] Receiving care in room [] Pre-surgical visit [] Trauma [] Long length of stay [] ICU visit [] Other: Relational/Emotional Strength [] Patient feels connected with others/family/visitors/staff [] Distress [] Loneliness/isolation [] Abandonment Spirituality of Patient [x] Person of Angie [] Attends Catholic of their Angie [] Believes in Prayer [] Reads Bible or Spiritism materials [] There are Spiritual issues to be addressed Tool Tender Interventions [x] Prayer [x] Active listening [x Non-anxious presence [x] Spiritual/emotional support [] Crisis/trauma care [] Spiritual counseling [] Bereavement support [] Provided bereavement packet [] Provided Bible/devotional materials [] Provided toy/stuffed animal, coloring book to patient or family member [] Provided Communion [] Anointing/[place] [] Salvation [x] Completed spiritual assessment [] Other: Impact on Illness or Injury [] Angry [] Fearful [] Anxious [] Often cries [] Exhaustion [] Unable to work [] Unable to attend mu-ism [] Unable to walk/stand [] Unable to read [] Unable to drive [] Unable to eat/drink [] Unable to sleep [] Unable to be with family [] Patient intubated [] Other: Summary delightful patient... looking for answers and healing... 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 Time spent with patient 20 min
--- NOTE | 2021-10-18 12:22 | P.DS_ITS ---
Discharge Providers Date of Admission: 10/17/21 11:59 Date of Discharge: October 18, 2021 Attending Provider at Admission: Lester Bajwa MD Attending Provider at Discharge: Lester Bajwa MD Primary Care Provider: Mauro Cerna Diagnoses at Discharge Discharge Diagnosis (1) ST elevation myocardial infarction (STEMI): Status: Resolved (2) First degree AV block: Status: Acute (3) Hypertension: Status: Acute Reason for Visit Reason for Visit: CHEST AND BACK PAINS Hospital Course Hospital Course 80-year-old male presented with ST elevation NE of inferior wall noted to have occluded RCA in the distal segment treated with drug-eluting stent circumflex was also noted to have significant mid and distal stenosis treated with 2 drug- eluting stents. Rest of the vessel did not show any significant stenosis. Post PCI course remains uncomplicated his medicines were optimized today he is walking around without any difficulty and being discharged home he has been given detailed discussion regarding continuing atorvastatin beta-duyen and clopidogrel. Physical Exam Chest: OTHER: GENERAL: Patient is alert, awake and oriented x3. NECK: No jugular vein distension. HEENT: No cyanosis. No icterus. No pallor. HEART: Regular S1 and S2. No murmur, rub or gallop. LUNGS: Clear to auscultate bilaterally. ABDOMEN: Soft, nontender and nondistended. Positive bowel sounds. No guarding, rebound or tenderness. CENTRAL NERVOUS SYSTEM: Grossly nonfocal. EXTREMITIES: Lower extremities without edema bilaterally. 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 echo complete* [id number] Routine Ultrasound 10/18/21 21:05 Taken Radiology Impressions Chest X-Ray 10/17/21 08:19 IMPRESSION: 1. Mildly lobulated contour of the RIGHT hilum is probably normal for this patient. Near similar findings were noted on a study of 01/11/2020 although soft tissue does appear slightly more prominent today which could be based on technique. Recommend follow-up chest CT with IV contrast versus two-view chest radiograph in the department. 2. Mild atherosclerosis aorta. Laboratory Results WBC 5.9 10^3/uL (4.0-10.0) 10/18/21 02:24 RBC 4.72 10^6/uL (4.1-5.3) 10/18/21 02:24 Hgb 13.7 g/dL (11.7-16.6) 10/18/21 02:24 Hct 43.9 % (42.0-52.0) 10/18/21 02:24 MCV 93.0 fl (80-94) 10/18/21 02:24 MCH 29.0 pg (28.0-34.0) 10/18/21 02:24 MCHC 31.2 g/dL (30.0-36.0) 10/18/21 02:24 RDW 13.2 % (12.1-15.1) 10/18/21 02:24 Plt Count 155 10^3/cmm (130-400) 10/18/21 02:24 MPV 10.5 fL (7.4-10.4) H 10/18/21 02:24 Neut % (Auto) 69.6 % 10/18/21 02:24 Lymph % (Auto) 17.2 % 10/18/21 02:24 [place] % (Auto) 8.7 % 10/18/21 02:24 Eos % (Auto) 2.6 % 10/18/21 02:24 Baso % (Auto) 0.7 % 10/18/21 02:24 Neut # (Auto) 4.10 10^3/uL (1.8-7.7) 10/18/21 02:24 Lymph # (Auto) 1.0 10^3/uL (0.8-4.8) 10/18/21 02:24 [place] # (Auto) 0.5 10^3/uL (0.2-0.9) 10/18/21 02:24 Eos # (Auto) 0.2 10^3/uL (0.0-0.8) 10/18/21 02:24 Baso # (Auto) 0.0 10^3/uL (0.0-0.1) 10/18/21 02:24 Nucleated RBC % (auto) 0 % 10/18/21 02:24 Nucleated RBCs # 0.0 /100WBC 10/18/21 02:24 PT 13.90 SECONDS (12.1-14.9) 10/17/21 08:43 INR 1.03 (0.8-1.2) 10/17/21 08:43 APTT 110.7 SECONDS (23.9-36.7) H 10/17/21 08:43 Sodium 138 mmol/L (136-145) 10/18/21 02:24 Potassium 4.6 mmol/L (3.5-5.1) 10/18/21 02:24 Chloride 108 mmol/L (98-107) H 10/18/21 02:24 Carbon Dioxide 19 mmol/L (22-29) L 10/18/21 02:24 Anion Gap 15.6 (5-19) 10/18/21 02:24 BUN 26 mg/dL (8-23) H 10/18/21 02:24 Creatinine 1.1 mg/dL (0.7-1.2) 10/18/21 02:24 GFR Calculation Not Reportable 10/18/21 02:24 Glucose 163 mg/dL (65-115) H 10/18/21 02:24 Calculated Osmolality 294 mOsm/kg (285-295) 10/18/21 02:24 Calcium 8.9 mg/dL (8.5-10.5) 10/18/21 02:24 Total Bilirubin 0.2 mg/dL (0.15-1.2) 10/17/21 08:43 AST 13 U/L (0-40) 10/17/21 08:43 ALT 12 U/L (0-41) 10/17/21 08:43 Alkaline Phosphatase 102 IU/L (40-130) 10/17/21 08:43 Creatine Kinase 31 U/L (39-308) L 10/17/21 08:43 CK-MB (CK-2) Cancelled 10/17/21 08:23 CK-MB (CK-2) Rel Index Cancelled 10/17/21 08:23 Troponin T Gen 5 ng/L 3699 ng/L (0-15) H* 10/18/21 02:24 Troponin T Baseline 37 ng/L (0-15) H 10/17/21 08:43 Total Protein 6.4 g/dL (6.6-8.7) L 10/17/21 08:43 Albumin 3.7 g/dL (3.5-5.2) 10/17/21 08:43 Globulin 2.7 g/dL (1.3-4.6) 10/17/21 08:43 Vitals Last Vital Signs Temp 98 F 10/18/21 04:01 Pulse 62 10/18/21 05:05 Resp 16 10/18/21 04:01 BP 100/55 10/18/21 04:01 Pulse Ox 94 10/18/21 04:01 Discharge Plan Discharge Patient Disposition: Home Condition: Stable Prescriptions: New atorvastatin 40 mg Tablet 80 mg PO BEDTIME Qty: 90 4RF clopidogrel 75 mg Tablet 75 mg PO DAILY Qty: 90 4RF Protonix 40 mg tablet,delayed release (DR/EC) 40 mg PO DAILY 28 Days Qty: 90 3RF Continued Vitamin C 500 mg Tablet 250 mg PO DAILY 0RF Nitrostat 0.4 mg Tablet, Sublingual 0.4 mg SUBLINGUAL Q5M PRN (Reason: Chest Pain) 0RF Rx Instructions: do not exceed 3 doses per episode zinc 50 mg Tablet 50 mg PO DAILY 0RF Vitamin D3 50 mcg (2,000 unit) Tablet 50 mcg PO DAILY 0RF melatonin 10 mg Tablet 10 mg PO DAILY 0RF citalopram 20 mg tablet 20 mg PO DAILY 0RF Lactobacillus acidophilus [Acidophilus] Capsule 1 cap PO BID 0RF metoprolol tartrate 25 mg tablet 25 mg PO DAILY 0RF fiber 1 tab PO BID 0RF loperamide [Imodium A-D] 2 mg Tablet 2 - 4 mg PO PRN 0RF aspirin 81 mg Tablet,Delayed Release (Dr/Ec) 81 mg PO QAM 0RF Discontinued omeprazole 40 mg capsule,delayed release(DR/EC) 40 mg PO BID 0RF Discharge Orders: Discharge Order (Routine); Ordered 10/18/21 Ordered By: Lester Bajwa Referrals: Jose Lamb M.D [Physician] - 1 week (Please fllow-up Kortney Martini on Oct.27 at 8:30A.M. Also, You have an appointment on at 1:30P.M. for an 21 day Event Moniter. If yo have any questions please call ) Kortney Martini FNP [Nurse Practitioner] - 1 month (Please follow-up with Dr. Lamb on [place], March 1 at 2:30P.M. If you have any questions or need t reschedule. Please call ) Discharge Diet: Cardiac Discharge Activity: Increase activity as tolerated Patient Instructions: Atorvastatin (By mouth), Clopidogrel (By mouth) (Plavix), Pantoprazole (By mouth) (Protonix), Coronary Angioplasty (DC), Opioid Safety, Post Angiogram Home Care Instructions Activity Restrictions/Additional Instructions: Follow-up with Ms. Kortney Martini in 7 days. Follow-up with Dr. Lamb in 4 w [facility], event monitor for 21 days for bradycardia. Discharge Attestations Time Spent in Discharge Care*: less than 30 min Quality Metrics Clinical Quality Measures [ Acute Myocardial Infaction { Clinical Trial Participant: Not a clinical trial participant; Contraindication to aspirin: None; Aspirin prescribed; Contraindication to statin: None; Statin prescribed; Contraindication to PCI: None; PCI performed;}] Coding Level of Care Code New Pt Acute Chg FW DC note Patient Type New History Detailed Exam Detailed Medical Decision Making Moderate Complexity Diagnoses ST elevation myocardial infarction (STEMI) I21.3 First degree AV block I44.0 Hypertension I10
[2021-10-18 14:15] VITALS: BP 105/67; PULSE 81; RESP 18; TEMP 36.6; O2SAT 96
--- NOTE | 2021-10-18 14:15 | PC.NURSE ---
Discharge educations provided to patient and family member. Daughter understands instructions. Patient verbalizes understanding. VS stable upon departure. Patient left via wheelchair.
[2021-10-18 15:14] VITALS: BP 105/67
--- NOTE | 2021-10-18 21:05 | USCV_ITS ---
Martha Hector Age: 80 Gender: M : 1940 Exam Date: 10/18/2021 07:23 Ordering Phys: Lester Bajwa MD ([email or web address]) Technologist: TAWANNA Exam Location: [facility] [place] Indication: STEMI? s/p AR 1988 with multiple cardiac stenting. BP: 124 / 75 HR: 62 Rhythm: Sinus Technical Quality: Adequate MEASUREMENTS (Male / Female) Normal Values 2D ECHO LV Diastolic Diameter PLAX 4.4 cm 4.2 - 5.9 / 3.9 - 5.3 cm LV Systolic Diameter PLAX 3.4 cm IVS Diastolic Thickness 1.3 cm 0.6 - 1.0 / 0.6 - 0.9 cm IVS Systolic Thickness 1.8 cm LVPW Diastolic Thickness 1.1 cm 0.6 - 1.0 / 0.6 - 0.9 cm LVPW Systolic Thickness 1.6 cm LVOT Diameter 2.0 cm LV Ejection Fraction 2D Teich 45.2 % LV Ejection Fraction MOD 2C 31.7 % LV Ejection Fraction 2C AL 34.4 % LA Diameter 4.3 cm LA Width 4.1 cm LA Height 6.5 cm RA Width 3.6 cm RA Height 4.6 cm Aorta at Sinotubular Diameter 3.0 cm M-MODE Aortic Annulus Diameter 3.4 cm LA Ao Ratio MM 1.2 MV E Point Septal Separation 0.7 cm DOPPLER AV Peak Velocity 198.0 cm/s LVOT Peak Velocity 63.0 cm/s AV Area Cont Eq vti 0.9 cm squared AV Area Cont Eq pk 1.0 cm squared MV Peak Velocity 94.0 cm/s MV Area PHT 3.5 cm squared Mitral E to A Ratio 0.9 MV E' Velocity 39.0 cm/s Mitral E to MV E' Ratio 12.2 Mitral E to LV E' Lateral Ratio 11.4 Mitral E to LV E' Septal Ratio 13.3 TR Peak Velocity 282.0 cm/s TR Peak Gradient 31.8 mmHg TV Peak E Velocity 40.0 cm/s Right Atrial Pressure 10.0 mmHg Pulmonary Artery Systolic Pressu 41.8 mmHg PV Peak Velocity 115.0 cm/s RV Acceleration Time 0.0 s RV Ejection Time 0.3 s RV AcT/ET 0.1 FINDINGS Left Ventricle Normal left ventricular cavity size. Normal left ventricular wall thickness. Normal left ventricular systolic function. Left ventricular ejection fraction is estimated at 55 %. Mild hypokinesis of basal to mid inferior wall. Grade I diastolic dysfunction (abnormal relaxation filling pattern), normal to mildly elevated filling pressures. Right Ventricle Normal right ventricular size and systolic function. Right ventricular systolic pressure 49 mmHg. Right Atrium Normal right atrial size. Right atrial pressure estimated at 15 mmHg. Left Atrium Mildly increased left atrial size. Mitral Valve Moderate mitral annular calcification. Moderately thickened mitral valve. Mild mitral valve regurgitation. Aortic Valve Moderately acute thickened and calcified trileaflet aortic valve. Calcification more pronounced in noncoronary cusp. Moderate aortic valve stenosis, peak velocity 2 m/s, peak gradient 16 mmHg, mean gradient 6.9 mmHg, JAYSON 0.9 cm squared. Trace aortic valve regurgitation. Tricuspid Valve Structurally normal tricuspid valve. No tricuspid valve stenosis. Mild tricuspid valve regurgitation. Pulmonic Valve Structurally normal pulmonic valve. No pulmonary valve stenosis. Trace pulmonary valve regurgitation. Pericardium No pericardial effusion. Aorta Normal size aortic root and proximal ascending aorta. Dilated inferior vena cava with no respiratory variation. CONCLUSIONS 1. Normal left ventricular cavity size, wall thickness and systolic function. Left ventricular ejection fraction is estimated at 55 %. Mild hypokinesis of basal to mid inferior wall. Grade I diastolic dysfunction (abnormal relaxation filling pattern), normal to mildly elevated filling pressures. 2. Normal right ventricular size and systolic function. 3. Moderate pulmonary hypertension with pulmonary artery pressure estimated 49 mmHg. 4. Moderately acute thickened and calcified trileaflet aortic valve. Calcification more pronounced in noncoronary cusp. Moderate aortic valve stenosis, peak velocity 2 m/s, peak gradient 16 mmHg, mean gradient 6.9 mmHg, JAYSON 0.9 cm squared. Trace aortic valve regurgitation. 5. Mild mitral and tricuspid valve regurgitation. 6. When compared to previous echocardiogram report dated 01/12/2020, there is wall motion abnormality and pulmonary pressure has increased. Mindi Ayala MD (Electronically Signed) Final Date: 18 October 2021 17:59 S
== END 2021-10-18 14:15 | disposition home or self-care (01) | DRG 247 ==
LOC: ER 08:23 → CCL 08:30 → ICU 11:59 → CSU 21:33
PROVIDERS: Admitting Provider Internal Medicine Cardiovascular Disease; Emergency Provider Family Medicine; PCP Internal Medicine; Visit Provider Internal Medicine Cardiovascular Disease
PROC: 027136Z Dilation of Coronary Artery, Two Arteries with Three Drug-eluting Intraluminal Devices, Percutaneous Approach (ICD-10-PCS; principal; 2021-10-17 08:30)
PROC: 027136Z Dilation of Coronary Artery, Two Arteries with Three Drug-eluting Intraluminal Devices, Percutaneous Approach (ICD-10-PCS; 2021-10-17 08:30)
DX: I21.11 ST elevation (STEMI) myocardial infarction involving right coronary artery (principal); I25.10 Atherosclerotic heart disease of native coronary artery without angina pectoris; Z95.5 Presence of coronary angioplasty implant and graft; E11.9 Type 2 diabetes mellitus without complications; Z96.611 Presence of right artificial shoulder joint; Z87.891 Personal history of nicotine dependence; I44.0 Atrioventricular block, first degree; Z79.82 Long term (current) use of aspirin
CPT/HCPCS: 36415; 71045; 80048; 80053; 82274; 82550; 84484; 85025; 85347; 85610; 85730; 93005; 93306; 93454; 96361; 96374; 99285; C1725; C1760; C1769; C1874; C1887; C1894; C9600; C9601; J1644; J2250; J3010; J3490; J7030; Q9967

== ENCOUNTER 2021-10-26 14:38 | Emergency (ER) | payer MEDICARE, OTHER, SELFPAY ==
[2021-10-26] VITALS (7 sets, daily range): BP systolic 118–188; BP diastolic 57–90; PULSE 68–72; RESP 14–22; TEMP 36.5; O2SAT 91–97; BMI 22.9
--- NOTE | 2021-10-26 14:56 | ED_ITS ---
HPI - Chest Pain General: Chief Complaint: Chest Pain Stated Complaint: dizzy, irregular heartbeat Time Seen by Provider: 10/26/21 14:56 History of Present Illness: Mr. Hetcor is a 80-year-old gentleman with significant past medical history of hypertension and diabetes as well as diag nosis and treatment of STEMI on 10/17 treated with PCI presents emergency department due to generalized symptoms. He reports feeling relatively well since being discharged from the hospital however over the past 2 or 3 days has had gradual onset worsening of fatigue and generalized malaise. He denies specific associated symptoms but just feels low on energy. He has had an episode of chest pressure which has subsequently resolved. He contacted the office today and was advised that he had increased extra beats though he does not note palpitations or knowledge of these extra beats. Overall the course of symptoms has been worsening. Intensity is moderate. Denies specific infectious symptoms. More fatigued with exertion. Denies edema. No other specific exacerbating relieving factors identified. He has not missed any doses of medication. Pertinent past history: coronary artery disease and prior MD Onset (ago): day(s) Timing of current episode: increasing Pain location: substernal Severity: moderate Quality: heaviness Context: other Review of Systems General: Reports: 10 or more systems reviewed and unremarkable except in HPI and below PFSH ED PFSH: Medical History Coronary artery disease Diabetes First degree AV block Hypertension Surgical History History of intravascular stent placement History of right shoulder replacement Family History Father Colon cancer Stroke Mother Diabetes Social History Smoking and tobacco status: former smoker Alcohol intake: never History of recent travel: No Physical Exam Const: COMMON NORMALS: alert GENERAL APPEARANCE: cooperative and well developed HENMT: COMMON NORMALS: normocephalic and atraumatic HEAD & SCALP: normocephalic and atraumatic Eye: COMMON NORMALS: conjunctivae normal CONJUNCTIVA: Yes conjunctivae normal SCLERA: sclerae normal Neck/C-Spine: COMMON NORMALS: supple GENERAL: Yes trachea midline Resp: COMMON NORMALS: normal respiratory effort and clear to auscultation bilaterally EFFORT & INSPECTION: Yes able to speak in complete sentences AUSCULTATION: clear to auscultation bilaterally Cardio: COMMON NORMALS: regular rate and regular rhythm RATE: regular rate RHYTHM: regular rhythm OTHER: Normal peripheral perfusion, no edema peripherally. GI: COMMON NORMALS: Soft to palpation PALPATION: Yes Soft to palpation and No Tenderness to palpation present (GI) PERCUSSION: normal to percussion Extremity: GENERAL: Yes normal exam except as noted and No edema Neuro: COMMON NORMALS: moves all extremities SENSORIUM/ORIENTATION: Yes alert and No Orientation impaired Psych: COMMON NORMALS: mental status grossly normal and Normal thought process present THOUGHT PROCESS: Normal thought process present Course ED course: - Patient was seen and evaluated by me at bedside - Patient placed on cardiac monitors, IV access obtained - Initial evaluation notable for exam as above - Labs notable for no leukocytosis, normal hemoglobin. Metabolic panel with mild evidence of dehydration. Magnesium is low and replenishment was ordered. Troponin improved from previous with a negative delta troponin. BNP is mildly elevated though no significant evidence on clinical exam of volume overload - Imaging notable for negative chest x-ray - Upon serial reexamination after treatment the patient was mildly improved - Based on patient history, evaluation, labs, and imaging as interpreted the most likely cause of the patient's condition is generalized malaise and PVCs of unclear etiology perhaps related to mild dehydration and electrolyte abnormalities - Discussed with cardiology who felt that patient could be reasonably discharged for outpatient follow-up - The results of ED evaluation were discussed with the patient including prescriptions and/or symptomatic cares (if applicable) including appropriate and responsible use, followup plan, and return precautions. The patient verbalized understanding and felt safe for discharge. - Patient discharged in satisfactory condition. Note: Click bubbles or prepopulated mendosa in note writing are used for assistance with data collection and billing and are inherently more limited than narrative and other text portions of this note. Please use narrative for additional clinical history and defer to narrative/free test for any case of contradictory information. If information appears in only free text or click bubble it should be considered present or absent as reported. Please contact note science writer for clarifications of clinical information or contradictory information. MDM is a brief summary, contradictory or erroneous seeming information should be clarified and full note should be reviewed. Vital Signs: Vital signs: Vital Signs Temperature 97.7 F 10/26/21 14:46 Pulse Rate 69 10/26/21 18:42 Respiratory Rate 22 H 10/26/21 18:42 Blood Pressure 118/57 10/26/21 18:42 Pulse Oximetry 94 10/26/21 18:42 MDM - Chest Pain Medical Decision Making 81-year-old male with history of STEMI recently presenting with PVCs and generalized malaise. Mild dehydration and electrolyte derangements noted on laboratory studies. No evidence of gross volume overload or significant vital sign abnormality. After discussion with cardiology patient can be safely discharged for outpatient management and close follow-up. Medical Records I reviewed the patient's medical records. Lab Data I reviewed the patient's lab results. : 10/26/21 15:05 10/26/21 15:05 Radiology Impressions Chest X-Ray 10/26/21 14:58 IMPRESSION: No acute chest abnormality. Laboratory Results WBC 4.3 10^3/uL (4.0-10.0) 10/26/21 15:05 RBC 5.14 10^6/uL (4.1-5.3) 10/26/21 15:05 Hgb 15.0 g/dL (11.7-16.6) 10/26/21 15:05 Hct 46.7 % (42.0-52.0) 10/26/21 15:05 MCV 90.9 fl (80-94) 10/26/21 15:05 MCH 29.2 pg (28.0-34.0) 10/26/21 15:05 MCHC 32.1 g/dL (30.0-36.0) 10/26/21 15:05 RDW 13.1 % (12.1-15.1) 10/26/21 15:05 Plt Count 181 10^3/cmm (130-400) 10/26/21 15:05 MPV 11.3 fL (7.4-10.4) H 10/26/21 15:05 Neut % (Auto) 58.9 % 10/26/21 15:05 Lymph % (Auto) 22.5 % 10/26/21 15:05 [place] % (Auto) 9.5 % 10/26/21 15:05 Eos % (Auto) 6.3 % 10/26/21 15:05 Baso % (Auto) 1.4 % 10/26/21 15:05 Neut # (Auto) 2.55 10^3/uL (1.8-7.7) 10/26/21 15:05 Lymph # (Auto) 1.0 10^3/uL (0.8-4.8) 10/26/21 15:05 [place] # (Auto) 0.4 10^3/uL (0.2-0.9) 10/26/21 15:05 Eos # (Auto) 0.3 10^3/uL (0.0-0.8) 10/26/21 15:05 Baso # (Auto) 0.1 10^3/uL (0.0-0.1) 10/26/21 15:05 Nucleated RBC % (auto) 0 % 10/26/21 15:05 Nucleated RBCs # 0.0 /100WBC 10/26/21 15:05 Sodium 134 mmol/L (136-145) L 10/26/21 15:05 Potassium 5.0 mmol/L (3.5-5.1) 10/26/21 15:05 Chloride 104 mmol/L (98-107) 10/26/21 15:05 Carbon Dioxide 19 mmol/L (22-29) L 10/26/21 15:05 Anion Gap 16.0 (5-19) 10/26/21 15:05 BUN 33 mg/dL (8-23) H 10/26/21 15:05 Creatinine 1.3 mg/dL (0.7-1.2) H 10/26/21 15:05 GFR Calculation Not Reportable 10/26/21 15:05 Glucose 196 mg/dL (65-115) H 10/26/21 15:05 Calculated Osmolality 291 mOsm/kg (285-295) 10/26/21 15:05 Calcium 9.1 mg/dL (8.5-10.5) 10/26/21 15:05 Magnesium 1.4 mg/dL (1.7-2.3) L 10/26/21 15:05 Total Bilirubin 0.3 mg/dL (0.15-1.2) 10/26/21 15:05 AST 15 U/L (0-40) 10/26/21 15:05 ALT 14 U/L (0-41) 10/26/21 15:05 Alkaline Phosphatase 119 IU/L (40-130) 10/26/21 15:05 Troponin T Baseline 371 ng/L (0-15) H* 10/26/21 15:05 Troponin T 120 Minute 301.2 ng/L (0-15) H 10/26/21 17:20 Delta Troponin T -69.8 ABS# (0-10) L 10/26/21 17:20 NT-Pro-B Natriuret Pep 2590 pg/mL (0-450) H 10/26/21 15:05 Total Protein 6.6 g/dL (6.6-8.7) 10/26/21 15:05 Albumin 3.9 g/dL (3.5-5.2) 10/26/21 15:05 Globulin 2.7 g/dL (1.3-4.6) 10/26/21 15:05 Procalcitonin 0.06 ng/mL (0-0.5) 10/26/21 15:05 TSH 2.60 uIU/mL (0.27-4.20) 10/26/21 15:05 EKG Data EKG 1: I personally reviewed and interpreted this EKG as follows: EKG interpretation date: 10/26/21 EKG interpretation time: 14:52 Interpretation: Twelve-lead EKG shows a regular rhythm and rate of 74. CT interval 329, QRS duration 118, QTc 404. Left axis deviation. Interpretation: Sinus rhythm. Ectopic beats. First-degree AV block. Nonspecific ST segment abnormalities. Lead III and lead aVF are similar/improved from prior and not meeting STEMI criteria. EKG 2: Interpretation: Twelve-lead EKG shows a regular rhythm at a rate of 65. CT interval 337, QRS duration 114, QTc 400 Left axis deviation Interpretation: Sinus rhythm. First-degree AV block. Nonspecific ST segment abnormalities not meeting STEMI criteria Discharge Plan Discharge Patient Disposition: Home Clinical Impression: Malaise, Frequent PVCs, Light-headed, Hypomagnesemia, Dehydration Condition: Stable Prescriptions: No Action atorvastatin 40 mg Tablet 80 mg PO BEDTIME Qty: 90 4RF clopidogrel 75 mg Tablet 75 mg PO DAILY Qty: 90 4RF Protonix 40 mg tablet,delayed release (DR/EC) 40 mg PO DAILY 28 Days Qty: 90 3RF Vitamin C 500 mg Tablet 250 mg PO DAILY 0RF Nitrostat 0.4 mg Tablet, Sublingual 0.4 mg SUBLINGUAL Q5M PRN (Reason: Chest Pain) 0RF Rx Instructions: do not exceed 3 doses per episode zinc 50 mg Tablet 50 mg PO DAILY 0RF Vitamin D3 50 mcg (2,000 unit) Tablet 50 mcg PO DAILY 0RF melatonin 10 mg Tablet 10 mg PO DAILY 0RF citalopram 20 mg tablet 20 mg PO DAILY 0RF Lactobacillus acidophilus [Acidophilus] Capsule 1 cap PO BID 0RF metoprolol tartrate 25 mg tablet 25 mg PO DAILY 0RF fiber 1 tab PO BID 0RF loperamide [Imodium A-D] 2 mg Tablet 2 - 4 mg PO PRN 0RF aspirin 81 mg Tablet,Delayed Release (Dr/Ec) 81 mg PO QAM 0RF Discharge Orders: Discharge ED (Routine); Ordered 10/26/21 Ordered By: Alok Rea Referrals: Jalen Hicks DO [Primary Care Provider] - Discharge Diet: Usual diet Discharge Activity: Resume usual activity Patient Instructions: Chest Pain (ED), Lightheadedness (ED) Activity Restrictions/Additional Instructions: Thank you for visiting the emergency department. You were seen and evaluated for lightheadedness, generalized symptoms, and an episode of chest pressure. The exact cause of the symptoms is unclear. Your troponin continues to improve from your prior heart attack. You were noticed to likely have mild dehydration and your magnesium was low which certainly can cause increased PVCs. Please follow-up with geriatric aide. Please follow-up with your primary care provider. Please follow the recommended medication changes by cardiology. Return to the emergency department for chest pain, shortness of breath, any new neurologic symptoms, or anything else that you are concerned about and feel needs emergency department evaluation. Coding Level of Care Code ED Reach Lift Truck Driver for Saad Perez Exam Comprehensive
--- NOTE | 2021-10-26 14:58 | ECG_ITS ---
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 Measurements Intervals [place] Rate: 74 P: 29 TX: 329 QRS: -13 QRSD: 118 T: -34 QT: 377 QTc: 420 Interpretive Statements POSSIBLE RIGHT VENTRICULAR CONDUCTION DELAY [RSR (QR) IN V1/V2] Compared to ECG 10/17/2021 10:30:18 Sinus rhythm no longer present First degree AV block no longer present Incomplete right bundle-branch block no longer present Myocardial infarct finding no longer present Electronically Signed On 10-27-2021 17:40:00 PRODUCT FINISHER by Jose Lamb M.D. [id number]
--- NOTE | 2021-10-26 14:58 | XR_ITS ---
WS: [id number] XR chest 1V portable [id number] REASON FOR EXAM: chest pain FINDINGS: Significant tortuosity and ectasia of the thoracic aorta. Heart size within normal limits. Coronary a rtery calcifications and coronary artery stents. No active pulmonary parenchymal or pleural disease is identified. Total left shoulder arthroplasty. Chest relatively unchanged compared to 10/17/2021. XR/XR chest 1V portable [id number] IMPRESSION: No acute chest abnormality.
[2021-10-26 15:25] LABS: Basophils # 0.1 10^3/uL (0.0-0.1); Basophils % 1.4 %; Eosinophils # 0.3 10^3/uL (0.0-0.8); Eosinophils % 6.3 %; Hematocrit 46.7 % (42.0-52.0); Lymphocytes % 22.5 %; Mean Corpuscular HGB Conc 32.1 g/dL (30.0-36.0); Mean Corpuscular Hemoglobin 29.2 pg (28.0-34.0); Mean Corpuscular Volume 90.9 fl (80-94); Mean Platelet Volume 11.3 fL (7.4-10.4); Monocytes # 0.4 10^3/uL (0.2-0.9); Monocytes % 9.5 %; Neutrophils # 2.55 10^3/uL (1.8-7.7); Neutrophils % 58.9 %; Nucleated Red Blood Cells % 0 %; Platelet Count 181 10^3/cmm (130-400); Red Blood Count 5.14 10^6/uL (4.1-5.3); Red Cell Distribution Width 13.1 % (12.1-15.1); White Blood Count 4.3 10^3/uL (4.0-10.0)
[2021-10-26 15:57] LABS: NT Pro B Type Natriuretic Pept 2590 pg/mL (0-450); Procalcitonin 0.06 ng/mL (0-0.5)
[2021-10-26 16:05] LABS: Troponin(5th) Baseline 371 ng/L (0-15)
[2021-10-26 16:09] LABS: Alanine Aminotransferase 14 U/L (0-41); Albumin Level 3.9 g/dL (3.5-5.2); Alkaline Phosphatase 119 IU/L (40-130); Aspartate Amino Transferase 15 U/L (0-40); Blood Urea Nitrogen 33 mg/dL (8-23); Calcium 9.1 mg/dL (8.5-10.5); Carbon Dioxide 19 mmol/L (22-29); Chloride 104 mmol/L (98-107); Globulin 2.7 g/dL (1.3-4.6); Glucose 196 mg/dL (65-115); Magnesium 1.4 mg/dL (1.7-2.3); Osmolality Calculated 291 mOsm/kg (285-295); Sodium 134 mmol/L (136-145); Total Bilirubin 0.3 mg/dL (0.15-1.2); Total Protein 6.6 g/dL (6.6-8.7)
--- NOTE | 2021-10-26 16:58 | ECG_ITS ---
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 Measurements Intervals [place] Rate: 65 P: 13 CA: 337 QRS: -20 QRSD: 114 T: -30 QT: 388 QTc: 405 Interpretive Statements SINUS RHYTHM WITH FIRST DEGREE AV BLOCK POSSIBLE RIGHT VENTRICULAR CONDUCTION DELAY [RSR (QR) IN V1/V2] Compared to ECG 10/26/2021 14:49:57 First degree AV block now present Electronically Signed On 10-27-2021 10:57:23 COMBINATION SAW OPERATOR by Mindi Ayala M.D. [email or web address]
[2021-10-26] MEDS: sodium chloride 0.9% 500 ML 999 ML IV (17:14)
[2021-10-26] MEDS: magnesium sulfate premix 2 GM/50 ML PIGGYBACK IV (17:14)
--- NOTE | 2021-10-26 17:21 | PC.NURSE ---
PATIENT ON CONTINUOUS BEDSIDE CARDIAC, BP AND O2 MONITOR.
[2021-10-26 18:11] LABS: Troponin 5 2HR Delta -69.8 ABS# (0-10)
[2021-10-26 18:12] LABS: Troponin 5 2HR 301.2 ng/L (0-15)
== END 2021-10-26 18:56 | disposition home or self-care (01) ==
PROVIDERS: Emergency Provider Emergency Medicine; PCP Internal Medicine
DX: E83.42 Hypomagnesemia (principal); R53.81 Other malaise; R42 Dizziness and giddiness; E86.0 Dehydration; I49.3 Ventricular premature depolarization; Z79.02 Long term (current) use of antithrombotics/antiplatelets; Z79.82 Long term (current) use of aspirin; I25.10 Atherosclerotic heart disease of native coronary artery without angina pectoris; E11.9 Type 2 diabetes mellitus without complications; I10 Essential (primary) hypertension; Z87.891 Personal history of nicotine dependence
CPT/HCPCS: 71045; 80053; 83735; 83880; 84145; 84443; 84484; 85025; 93005; 96365; 99284; J3475; J7040

== ENCOUNTER → 2021-11-08 10:10 | Outpatient (BNVA) | payer MEDICARE, OTHER, SELFPAY | PROVIDERS: PCP Internal Medicine; Visit Provider Nurse Practitioner Family | DX: I25.10 Atherosclerotic heart disease of native coronary artery without angina pectoris (principal) | CPT/HCPCS: 80048 ==

== ENCOUNTER → 2021-12-20 14:46 | Outpatient (BNVA) | payer MEDICARE, OTHER, SELFPAY | PROVIDERS: PCP Internal Medicine; Visit Provider Internal Medicine Cardiovascular Disease | DX: Z09 Encounter for follow-up examination after completed treatment for conditions other than malignant neoplasm (principal); I25.10 Atherosclerotic heart disease of native coronary artery without angina pectoris; Z87.891 Personal history of nicotine dependence | CPT/HCPCS: 99213 ==

== ENCOUNTER → 2022-06-19 13:47 | Outpatient (BNVA) | payer MEDICARE, OTHER, SELFPAY | PROVIDERS: PCP Internal Medicine; Visit Provider Nurse Practitioner Family | DX: I10 Essential (primary) hypertension (principal); I25.10 Atherosclerotic heart disease of native coronary artery without angina pectoris; Z87.891 Personal history of nicotine dependence | CPT/HCPCS: 99214 ==

== ENCOUNTER → 2022-12-25 13:46 | Outpatient (BNVA) | payer MEDICARE, OTHER, SELFPAY | PROVIDERS: PCP Internal Medicine; Visit Provider Internal Medicine | DX: I25.10 Atherosclerotic heart disease of native coronary artery without angina pectoris (principal); I44.0 Atrioventricular block, first degree; E11.9 Type 2 diabetes mellitus without complications; Z79.84 Long term (current) use of oral hypoglycemic drugs; I10 Essential (primary) hypertension; Z95.5 Presence of coronary angioplasty implant and graft; Z87.891 Personal history of nicotine dependence; Z79.82 Long term (current) use of aspirin | CPT/HCPCS: 99214 ==

== ENCOUNTER → 2023-01-31 07:57 | Outpatient (BNVA) | payer MEDICARE, OTHER, SELFPAY | PROVIDERS: PCP Internal Medicine; Visit Provider Nurse Practitioner Family | DX: L57.0 Actinic keratosis (principal); Z85.828 Personal history of other malignant neoplasm of skin; L85.3 Xerosis cutis; L57.8 Other skin changes due to chronic exposure to nonionizing radiation; L81.4 Other melanin hyperpigmentation; D22.5 Melanocytic nevi of trunk; Z71.89 Other specified counseling; I78.8 Other diseases of capillaries; Z87.891 Personal history of nicotine dependence | CPT/HCPCS: 17004; 99213 ==

== ENCOUNTER 2023-04-23 09:38 | Outpatient (CLI) | payer MEDICARE, OTHER, SELFPAY ==
--- NOTE | 2023-04-23 10:13 | MR_ITS ---
WS: [id number] MRI LEFT SHOULDER NONCONTRAST TECHNIQUE: Sagittal T2, coronal T1, T2 and proton density imaging. Axial gradient PDE imaging. CLINICAL INFORMATION: L SHOULDER PAIN COMPARISON: None. FINDINGS: Images are degraded by patient motion. Prior postoperative changes rotator cuff anchors. Susceptibility artifact from rotator cuff anchors d egrades some images. Narrowing of the subacromial space. Moderate degenerative arthritis at the AC birgit int with subchondral cystic change. Subchondral cystic change involving the glenohumeral articulation . Marked chronic thinning of the supraspinatus tendon repair. No definite evidence of new or recurrent tear or tendon retraction. Normal infraspinatus. Normal teres minor. Intra-articular biceps tendon ap pears intact. Long head of the biceps tendon is not visualized in the bicipital groove. Atrophic subs capularis tendon is poorly visualized MR/MR shoulder LT wo con* [id number] IMPRESSION: Motion degrades some images. 1. Susceptibly artifact due to rotator cuff anchors. 2. Marked narrowing of the subacromial space with marked chronic thinning of t he supraspinatus. Prior supraspinatus repair. No definite evidence of new high- grade tear or tendon retraction. 3. Normal infraspinatus and teres minor. Atrophic subscapularis. 4. Long head of the biceps tendon is not visualized in the bicipital groove. I ntra-articular biceps tendon appears intact. 5. Advanced degenerative narrowing at the glenohumeral articulation with subch ondral cystic change.
== END 2023-04-23 09:39 | disposition home or self-care (01) ==
PROVIDERS: PCP Internal Medicine; Visit Provider Internal Medicine
DX: M25.512 Pain in left shoulder (principal); Z98.890 Other specified postprocedural states; R93.7 Abnormal findings on diagnostic imaging of other parts of musculoskeletal system
CPT/HCPCS: 73221

== ENCOUNTER → 2023-04-30 06:49 | Outpatient (BNVA) | payer MEDICARE, OTHER, SELFPAY | PROVIDERS: PCP Internal Medicine; Visit Provider Student in an Organized Health Care Education/Training Program | DX: M19.012 Primary osteoarthritis, left shoulder (principal) | CPT/HCPCS: 99204 ==

== ENCOUNTER → 2023-06-06 10:13 | Outpatient (BNVA) | payer MEDICARE, OTHER, SELFPAY | PROVIDERS: PCP Internal Medicine; Visit Provider Nurse Practitioner Family | DX: I78.8 Other diseases of capillaries (principal); L57.0 Actinic keratosis; L85.3 Xerosis cutis; L57.8 Other skin changes due to chronic exposure to nonionizing radiation; D22.5 Melanocytic nevi of trunk; L81.4 Other melanin hyperpigmentation; L82.1 Other seborrheic keratosis; Z85.828 Personal history of other malignant neoplasm of skin; Z87.891 Personal history of nicotine dependence | CPT/HCPCS: 17000; 17003; 99213 ==

== ENCOUNTER → 2023-06-25 15:10 | Outpatient (BNVA) | payer MEDICARE, OTHER, SELFPAY | PROVIDERS: PCP Internal Medicine; Visit Provider Internal Medicine | DX: I25.10 Atherosclerotic heart disease of native coronary artery without angina pectoris (principal); I44.0 Atrioventricular block, first degree; E11.9 Type 2 diabetes mellitus without complications; Z79.4 Long term (current) use of insulin; I10 Essential (primary) hypertension; Z95.5 Presence of coronary angioplasty implant and graft; Z87.891 Personal history of nicotine dependence | CPT/HCPCS: 99214 ==

== ENCOUNTER → 2023-08-07 09:48 | Outpatient (BNVA) | payer MEDICARE, OTHER, SELFPAY | PROVIDERS: PCP Internal Medicine; Visit Provider Nurse Practitioner Family | DX: Z85.828 Personal history of other malignant neoplasm of skin (principal); I78.8 Other diseases of capillaries; L57.0 Actinic keratosis; L85.3 Xerosis cutis; L57.8 Other skin changes due to chronic exposure to nonionizing radiation; L81.4 Other melanin hyperpigmentation; D22.5 Melanocytic nevi of trunk; L82.1 Other seborrheic keratosis; D48.5 Neoplasm of uncertain behavior of skin | CPT/HCPCS: 11102; 17000; 99213 ==

== ENCOUNTER → 2023-11-05 10:46 | Outpatient (BNVA) | payer MEDICARE, OTHER, SELFPAY | PROVIDERS: PCP Internal Medicine; Visit Provider Dermatology | DX: Z08 Encounter for follow-up examination after completed treatment for malignant neoplasm (principal); D04.39 Carcinoma in situ of skin of other parts of face; L57.0 Actinic keratosis; Z85.828 Personal history of other malignant neoplasm of skin | CPT/HCPCS: 17000; 17282; 99213 ==

== ENCOUNTER → 2023-12-24 13:31 | Outpatient (BNVA) | payer MEDICARE, OTHER, SELFPAY | PROVIDERS: PCP Internal Medicine; Visit Provider Internal Medicine | DX: I25.10 Atherosclerotic heart disease of native coronary artery without angina pectoris (principal); I25.2 Old myocardial infarction; I35.0 Nonrheumatic aortic (valve) stenosis; I44.0 Atrioventricular block, first degree; E11.9 Type 2 diabetes mellitus without complications; I10 Essential (primary) hypertension; Z95.5 Presence of coronary angioplasty implant and graft; Z79.4 Long term (current) use of insulin; Z87.891 Personal history of nicotine dependence | CPT/HCPCS: 99214 ==

== ENCOUNTER 2023-12-27 08:27 | Outpatient (CLI) | payer MEDICARE, OTHER, SELFPAY ==
--- NOTE | 2023-12-27 08:32 | US_ITS ---
WS: [id number] Complete ABDOMINAL ULTRASOUND HISTORY: ABDOMINAL BLOATING/ABD DISTENTION COMPARISON: 11/17/2020 Quality this examination is significantly compromised by body habitus. Liver: 15.8 cm in length. Normal size liver and echogenicity. No bile duct dilatation or mass. Portal Vein: Normal hepatopetal flow with monophasic waveform. Gallbladder: Normally distended gallbladder with no stones or wall thickening. CBD: 0.4 cm Pancreas: Obscured. Right kidney: 10.2 cm x 7.1 x 6.7 cm. Cortex:1.1 cm. Normal size and echogenicity. No hydronephrosis or mass. Left kidney: 10.4 cm x 5.2 cm x 5.9 cm. Cortex: 1.2 cm. Normal size kidney. Cortical cyst mid to upper kidney measures 3.0 x 2.9 x 2.8 cm. Spleen: 12.7 cm. Normal size and echogenicity. Aorta and IVC: Unremarkable abdominal aorta and IVC. Impression: 1. Negative gallbladder. 2. Nonvisualization of the spleen. 3. No renal obstruction. 4. Simple cyst LEFT kidney maximum diameter 3.0 cm.
--- NOTE | 2023-12-27 08:43 | NM_ITS ---
WS: [id number] NUCLEAR MEDICINE HIDA SCAN WITH GALLBLADDER EJECTION FRACTION HISTORY: ABDOMINAL BLOATING, ABDOMINAL DISTENSION (GASEOUS) COMPARISON: None available. TECHNIQUE: The patient was intravenously injected with 7.9 mCi of TC99m Mebrofenin. Immediate imaging over the right upper quadrant was followed by 5 minute image and additional images for a total of 60 minutes. Normal uptake of radiotracer throughout the liver. Activity identified in the gallbladder at 10 minutes and well distended by 60 minutes. Activity in the proximal small bowel was seen by 60 minutes. Good washout of the radiotracer from the liver by 60 minutes. The patient then drank 8 ounces of Ensure Plus. Ejection fraction at 60 minutes was 25%. Normal GB ej ection fraction is 35-75%. Post fatty meal symptoms: None. IMPRESSION: 1. Normal HIDA scan. No common bile duct obstruction or cystic duct obstruction. 2. Abnormal gallbladder ejection. Consider gallbladder dyskinesia and chronic cholecystitis.
== END 2023-12-27 08:28 | disposition home or self-care (01) ==
LOC: RAD 08:27
PROVIDERS: PCP Internal Medicine; Visit Provider Social Worker Clinical
DX: N28.1 Cyst of kidney, acquired (principal); K81.1 Chronic cholecystitis
CPT/HCPCS: 76700; 78227; A9537

== ENCOUNTER 2024-01-03 08:43 | Outpatient (CLI) | payer MEDICARE, OTHER, SELFPAY ==
--- NOTE | 2024-01-03 09:15 | USCV_ITS ---
Matrha Hector Jr Age: 83 Gender: M : 1940 Exam Date: 01/03/2024 08:55 Ordering Phys: Jose Lamb M.D ([email or web address]) Technologist: Carlos Gonzales [place] [facility] [place]: ao stenosis BP: 154 / 70 HR: 77 Rhythm: Sinus Technical Quality: Adequate MEASUREMENTS (Male / Female) Normal Values 2D ECHO LVOT Diameter 2.2 cm LV Ejection Fraction MOD 2C 57.3 % LV Ejection Fraction 2C AL 62.7 % LA Diameter 3.6 cm RA Systolic Volume 4C AL 29.3 ml RA Systolic Volume 4C MOD 27.7 ml LA Sys Volume AL 58.4 cm cubed Aorta at Sinotubular Diameter 2.5 cm M-MODE LA Ao Ratio MM 1.2 AV Cusp Separation MM 1.1 cm DOPPLER AV Peak Velocity 200.0 cm/s LVOT Peak Velocity 71.0 cm/s AV Area Cont Eq vti 1.5 cm squared AV Area Cont Eq pk 1.3 cm squared MV Peak Velocity 95.0 cm/s MV Area PHT 7.4 cm squared Mitral E to A Ratio 4.3 TV Peak Velocity 143.0 cm/s TR Peak Velocity 194.0 cm/s TR Peak Gradient 15.1 mmHg TR Mean Velocity 149.0 cm/s TR Mean Gradient 9.8 mmHg TR Velocity Time Integral 30.9 cm PV Peak Velocity 108.3 cm/s RV Ejection Time 0.2 s FINDINGS Left Ventricle Left ventricle is normal in size. LV systolic function is normal with EF 55 to 60%. No regional wall motion abnormalities are seen Right Ventricle Normal in size and function. Right Atrium Normal in size Left Atrium Normal in size Mitral Valve Structurally normal mitral valve. Trace mitral regurgitation. Aortic Valve Aortic valve is thickened. Mild aortic stenosis with aortic valve area 1.4 cm squared and mean gradient of 11 mmHg. Mild aortic regurgitation. Tricuspid Valve Mild tricuspid regurgitation. Insufficient TR jet to calculate RVSP. Pulmonic Valve Not well visualized Pericardium Normal Aorta Normal in size IVC Not well visualized CONCLUSIONS LV systolic function is normal with EF of 55 to 60%. Trace mitral regurgitation Mild aortic stenosis. Mild aortic regurgitation Mild tricuspid regurgitation Compared to prior echocardiogram from 2021 no significant changes are seen Jose Lamb MD (Electronically Signed) Final Date: 05 January 2024 10:53 S
== END 2024-01-03 08:44 | disposition home or self-care (01) ==
LOC: RAD 08:43
PROVIDERS: PCP Internal Medicine; Visit Provider Social Worker Clinical
DX: I08.2 Rheumatic disorders of both aortic and tricuspid valves (principal)
CPT/HCPCS: 93306

== ENCOUNTER → 2024-01-15 09:40 | Outpatient (BNVA) | payer MEDICARE, OTHER, SELFPAY | PROVIDERS: PCP Internal Medicine; Visit Provider Dermatology | DX: L57.0 Actinic keratosis (principal) | CPT/HCPCS: 96567 ==

== ENCOUNTER → 2024-01-22 15:05 | Outpatient (BNVA) | payer MEDICARE, OTHER, SELFPAY | PROVIDERS: PCP Internal Medicine; Visit Provider Dermatology | DX: D48.5 Neoplasm of uncertain behavior of skin (principal); L81.4 Other melanin hyperpigmentation; Z85.828 Personal history of other malignant neoplasm of skin | CPT/HCPCS: 11102; 99213 ==

== ENCOUNTER → 2024-01-28 11:23 | Outpatient (BNVA) | payer MEDICARE, OTHER, SELFPAY | PROVIDERS: PCP Internal Medicine; Visit Provider Surgery | DX: I21.3 ST elevation (STEMI) myocardial infarction of unspecified site (principal); I10 Essential (primary) hypertension; Z91.018 Allergy to other foods | CPT/HCPCS: 99204 ==

== ENCOUNTER → 2024-02-07 08:49 | Outpatient (BNVA) | payer MEDICARE, OTHER, SELFPAY | PROVIDERS: PCP Internal Medicine; Referring Provider Nurse Practitioner Family; Visit Provider Specialist | DX: G30.9 Alzheimer's disease, unspecified; F02.80 Dementia in other diseases classified elsewhere, unspecified severity, without behavioral disturbance, psychotic disturbance, mood disturbance, and anxiety | CPT/HCPCS: 96116; 99204; 99205 ==

== ENCOUNTER → 2024-05-08 12:46 | Outpatient (BNVA) | payer MEDICARE, OTHER, SELFPAY | PROVIDERS: PCP Internal Medicine; Visit Provider Specialist | DX: G30.9 Alzheimer's disease, unspecified (principal); F02.80 Dementia in other diseases classified elsewhere, unspecified severity, without behavioral disturbance, psychotic disturbance, mood disturbance, and anxiety | CPT/HCPCS: 96116; 99213 ==

== ENCOUNTER → 2024-07-07 12:39 | Outpatient (BNVA) | payer MEDICARE, OTHER, SELFPAY | PROVIDERS: PCP Internal Medicine; Visit Provider Internal Medicine | DX: I25.10 Atherosclerotic heart disease of native coronary artery without angina pectoris (principal); I44.0 Atrioventricular block, first degree; E11.9 Type 2 diabetes mellitus without complications; Z79.84 Long term (current) use of oral hypoglycemic drugs; I10 Essential (primary) hypertension; Z95.5 Presence of coronary angioplasty implant and graft | CPT/HCPCS: 99214 ==

== ENCOUNTER → 2024-08-18 13:30 | Outpatient (BNVA) | payer MEDICARE, OTHER, SELFPAY | PROVIDERS: PCP Internal Medicine; Visit Provider Specialist | DX: G30.9 Alzheimer's disease, unspecified (principal); F02.80 Dementia in other diseases classified elsewhere, unspecified severity, without behavioral disturbance, psychotic disturbance, mood disturbance, and anxiety | CPT/HCPCS: 96116; G0463 ==

== ENCOUNTER 2024-09-09 08:39 | Oncology outpatient (recurring) (ONCR) | payer MEDICARE, OTHER, SELFPAY ==
--- NOTE | 2024-09-09 11:18 | N.ONRAD NP_ITS ---
Radiation Oncology New Patient Visit Patient: Martha Hector Jr MR#: [id number] : 1940> Age: 83> Sex: Male> Dictated by: Dr. 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 Radiotherapy to date: Summary > No prior radiation therapy. Chief Complaint / History of Present Illness: Patient is AN 83-year-old gentleman who was noted to have a history of multiple skin cancers. He had a recent lesion, but the superior portion of the left ear and also a mass in the parotid. The PET scan that showed the mass in the parotid but no other abnormalities. 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 This was done on 08/26/2024. Initially margins were positive but subsequent margins were negative. He is here today to discuss postoperative radiation. Current Medications: alfuzosin ER (Uroxatral) 10 mg PO DAILY ascorbic acid (vitamin C) (Vitamin C) 250 mg PO DAILY aspirin 81 mg PO QAM atorvastatin 80 mg (2 x 40 mg) PO BEDTIME cholecalciferol (vitamin D3) (Vitamin D3) 50 mcg PO DAILY citalopram 20 mg PO DAILY clopidogrel TAKE 1 TABLET BY MOUTH DAILY famotidine (Pepcid) 20 mg PO BID galantamine 8 mg PO BID glipizide 20 mg PO imiquimod 5% 1 applic topical ONCE nitroglycerin (Nitrostat) 0.4 mg sublingual Q5M PRN ondansetron HCl mg PO ONCE PRN pantoprazole (Protonix) 40 mg PO DAILY [Plavix PO] quetiapine (Seroquel) 25 mg PO DAILY Allergies: Alpha-Gal (Kpgffsrrv-Aauca-2,3-Gala Allergy ADR-Gastrointestinal Upset Medical History: STEMI (ST elevation myocardial infarction) Coronary artery disease First degree AV block Hypertension Diabetes Surgical History: S/P right coronary artery Left sided parotidectomy family History: Father Colon cancer Stroke Mother Diabetes Social History: Smoking and tobacco/nicotine status: former use of tobacco/nicotine (quit 55 years ago) Alcohol intake: never Substance/Drug Use: never Current Complaints / Review of Systems: . Vital Signs: Performed on 09/09/2024 9:18 AM BMI - 26.172 kg/m2 (high), Height - 70 in, Weight - 182.4 lbs, Temperature - 97 f, Pulse - 84 /min, Respiration - 18 /min, O2 Sat - 96 %, Pain - 0, Fatigue - 0 and BP - 106/ 75 mm(hg). Physical Exam: General: Patient is alert. He is companied by his daughter and his . HEENT: Normocephalic atraumatic. Pupils are equal, sclera clear extraocular muscles intact. Neck is supple without palpable adenopathy. Examination of the left side of his face and behind his ear revealed the incision to be healing nicely. There is no erythema or drainage. The skin cancer that was removed just superior to the ear is also healing nicely. Pulmonary: Respiratory rate is regular nonlabored Cardiovascular: Regular rate and rhythm Abdomen: Moderately protuberant android pattern Extremities: Without obvious edema in the upper extremities Neurological: Patient is alert. His and his daughter answer the majority of his questions. Psych: Affect is appropriate for current situation. His 1 question had to do with whether the radiation will cause additional cancers Performance Status: 70 Pathology: Primary, c07 - malignant neoplasm of parotid gland, Diagnosed 09/08/2024 (active) . Impression: Squamous of carcinoma of the parotid and a adjacent skin cancer Plan: I reviewed with the patient and his family the role of radiation postoperatively. We talked about how the radiation would be given to the surgical bed and that all the nodes were negative so these did not need to be included. We talked about a small volume to treat. I also reviewed with them that we could proceed with no treatment and do observation. We also talked about how we can start treatment and if he had significant toxicity we could always stop. We discussed the simulation process. We reviewed the daily treatment regiment. We discussed the risks and side effects both acute and long-term. At this point they are all in agreement that they like to proceed with treatment. He is only just 2 weeks from surgery. Will have him return after the first of the year to undergo simulation and begin his treatment shortly thereafter. He will visit with his surgeon tomorrow. He was given samples today of the skin care lotion to use. Signed by: 09/09/2024 11:15:53 AM <<Signature on File>> Time spent with patient:45 CPT Code: CPT Code:
== END 2024-09-22 23:59 | disposition home or self-care (01) ==
LOC: ONCMED 08:43
PROVIDERS: PCP Internal Medicine; Visit Provider Internal Medicine
DX: C07 Malignant neoplasm of parotid gland (principal); Z85.828 Personal history of other malignant neoplasm of skin
CPT/HCPCS: 99205

== ENCOUNTER 2024-10-16 09:40 | Oncology outpatient (recurring) (ONCR) | payer MEDICARE, OTHER, SELFPAY ==
--- NOTE | 2024-10-06 10:30 | ONCRAD TMN_ITS ---
Radiation Oncology Weekly Treatment Management Patient: Martha Hector Jr MR#: [id number] : 1940> Attending Physician: Dr. Magdalena Chaney Date of Service: 10/06/2024 Fractions: 2 out of 25 Referring Physician(s) : Diagnosis: C07 - Malignant neoplasm of parotid gland, Diagnosed 09/08/2024 (Active) Radiotherapy to date: Course: L parotid bed, Treatment Site: L Parotid Bed, Ref. ID: [id number], Energy: 6X, Dose/Fx (cGy): 200, #Fx: 2 / 25, Dose Correction (cGy): 0, Total Dose Delivered (cGy): 400, End Date: 10/06/2024, Elapsed Days: 1 Reason for visit: The patient is being seen today as part of their regularly scheduled weekly on treatment visits to assess for acute toxicities from radiotherapy. Review of Systems: Patient has noticed no changes. His did order the recommended cream Vital Signs: Performed on 10/06/2024 10:39 AM BMI - 24.823 kg/m2 (high), Height - 70 in, Weight - 173 lbs, Temperature - 97.2 f, Pulse - 75 /min, Respiration - 18 /min, O2 Sat - 98 %, Pain - 0, Fatigue - 0 and BP - 102/ 63 mm(hg)(/low). Physical Exam: No changes on exam Imaging: Radiation therapy imaging related to accurate target localization (i.e. KV, MV and CBCT) was reviewed. Appropriate changes, if any, were made to ensure treatment accuracy. Plan: Will continue with his treatments as planned Signed by: Dr. Magdalena Chaney 10/06/2024 10:41:55 AM
--- NOTE | 2024-10-13 10:27 | ONCRAD TMN_ITS ---
Radiation Oncology Weekly Treatment Management Patient: Krunal Us MR#: [id number] : 1940> Attending Physician: Dr. Magdalena Chaney Date of Service: 10/13/2024 Fractions: 7 out of 25 Referring Physician(s) : Diagnosis: C07 - Malignant neoplasm of parotid gland, Diagnosed 09/08/2024 (Active) Radiotherapy to date: Course: L parotid bed, Treatment Site: L Parotid Bed, Ref. ID: [id number], Energy: 6X, Dose/Fx (cGy): 200, #Fx: , Dose Correction (cGy): 0, Total Dose Delivered (cGy): 1,400, Start Date: 10/05/2024, Elapsed Days: 8 Reason for visit: The patient is being seen today as part of their regularly scheduled weekly on treatment visits to assess for acute toxicities from radiotherapy. Review of Systems: Patient denies any complaints. His says he is eating well Vital Signs: Performed on 10/13/2024 10:12 AM BMI - 25.254 kg/m2 (high), Height - 70 in, Weight - 176 lbs, Temperature - 96.8 f, Pulse - 72 /min, Respiration - 18 /min, O2 Sat - 98 %, Pain - 0, Fatigue - 0 and BP - 148/ 80 mm(hg)(high/). Physical Exam: No changes on exam. No changes on the skin Imaging: Radiation therapy imaging related to accurate target localization (i.e. KV, MV and CBCT) was reviewed. Appropriate changes, if any, were made to ensure treatment accuracy. Plan: Will continue with his treatment as planned. I asked his to monitor for any soreness in his throat on the treatment site. Signed by: Dr. Magdalena Chaney 10/13/2024 10:25:04 AM
== END 2024-10-16 23:59 | disposition home or self-care (01) ==
PROVIDERS: PCP Internal Medicine; Visit Provider Radiology Radiation Oncology
DX: Z51.0 Encounter for antineoplastic radiation therapy (principal); C07 Malignant neoplasm of parotid gland
CPT/HCPCS: 77300; 77301; 77334; 77336; 77338; 77386; 99024

== ENCOUNTER 2024-10-23 09:52 | Oncology outpatient (recurring) (ONCR) | payer MEDICARE, OTHER, SELFPAY ==
--- NOTE | 2024-10-20 10:28 | ONCRAD TMN_ITS ---
Radiation Oncology Weekly Treatment Management Patient: Martha Hector Jr MR#: [id number] : 1940 Attending Physician: Dr. Magdalena Chaney Date of Service: 10/20/2024 Fractions: 12 out of 25 Referring Physician(s) : Diagnosis: C07 - Malignant neoplasm of parotid gland, Diagnosed 09/08/2024 (Active) Radiotherapy to date: Course: L parotid bed, Treatment Site: L Parotid Bed, Ref. ID: [id number], Energy: 6X, Dose/Fx (cGy): 200, #Fx: , Dose Correction (cGy): 0, Total Dose Delivered (cGy): 2,400, Start Date: 10/05/2024, Elapsed Days: 15 Reason for visit: The patient is being seen today as part of their regularly scheduled weekly on treatment visits to assess for acute toxicities from radiotherapy. Review of Systems: Patient is doing well. His says he is eating well. He has noticed no changes. She is putting the cream on twice a day. Vital Signs: Performed on 10/20/2024 10:03 AM BMI - 24.938 kg/m2 (high), Height - 70 in, Weight - 173.8 lbs, Temperature - 97.5 f, Pulse - 86 /min, Respiration - 16 /min, O2 Sat - 96 %, Pain - 0, Fatigue - 0 and BP - 103/ 68 mm(hg). Physical Exam: Skin is without changes Imaging: Radiation therapy imaging related to accurate target localization (i.e. KV, MV and CBCT) was reviewed. Appropriate changes, if any, were made to ensure treatment accuracy. Plan: Will continue with his treatments as planned Signed by: Dr. Magdalena Chaney 10/20/2024 10:27:35 AM
== END 2024-10-23 23:59 | disposition home or self-care (01) ==
PROVIDERS: PCP Internal Medicine; Visit Provider Radiology Radiation Oncology
DX: Z51.0 Encounter for antineoplastic radiation therapy (principal); C07 Malignant neoplasm of parotid gland; Z85.828 Personal history of other malignant neoplasm of skin
CPT/HCPCS: 77336; 77386; 99024

== ENCOUNTER 2024-11-09 14:02 | Oncology outpatient (recurring) (ONCR) | payer MEDICARE, OTHER, SELFPAY ==
--- NOTE | 2024-10-27 10:18 | ONCRAD TMN_ITS ---
Radiation Oncology Weekly Treatment Management Patient: Krunal Us MR#: [id number] : 1940> Attending Physician: Dr. Magdalena Chaney Date of Service: 10/27/2024 Fractions: 17 out of 25 Referring Physician(s) : Diagnosis: C07 - Malignant neoplasm of parotid gland, Diagnosed 09/08/2024 (Active) Radiotherapy to date: Course: L parotid bed, Treatment Site: L Parotid Bed, Ref. ID: [id number], Energy: 6X, Dose/Fx (cGy): 200, #Fx: , Dose Correction (cGy): 0, Total Dose Delivered (cGy): 3,400, Start Date: 10/05/2024, Elapsed Days: 22 Reason for visit: The patient is being seen today as part of their regularly scheduled weekly on treatment visits to assess for acute toxicities from radiotherapy. Review of Systems: Patient denies any complaints. Vital Signs: Performed on 10/27/2024 9:54 AM BMI - 24.622 kg/m2 (high), Height - 70 in, Weight - 171.6 lbs, Temperature - 97.2 f, Pulse - 81 /min, Respiration - 18 /min, O2 Sat - 96 %, Pain - 0, Fatigue - 0 and BP - 113/ 69 mm(hg). Physical Exam: His skin is doing quite well on exam. There is mild hyperpigmentation Imaging: Radiation therapy imaging related to accurate target localization (i.e. KV, MV and CBCT) was reviewed. Appropriate changes, if any, were made to ensure treatment accuracy. Plan: His continues to use the cream twice a day. Will continue with his treatments as planned Signed by: Dr. Magdalena Chaney 10/27/2024 10:16:03 AM
--- NOTE | 2024-11-03 10:26 | ONCRAD TMN_ITS ---
Radiation Oncology Weekly Treatment Management Patient: Martha Hector Jr MR#: [id number] : 1940 Attending Physician: Dr. Magdalena Chaney Date of Service: 11/03/2024 Fractions: 22 out of 25 Referring Physician(s) : Diagnosis: C07 - Malignant neoplasm of parotid gland, Diagnosed 09/08/2024 (Active) Radiotherapy to date: Course: L parotid bed, Treatment Site: L Parotid Bed, Ref. ID: [id number], Energy: 6X, Dose/Fx (cGy): 200, #Fx: , Dose Correction (cGy): 0, Total Dose Delivered (cGy): 4,400, Start Date: 10/05/2024, Elapsed Days: 29 Reason for visit: The patient is being seen today as part of their regularly scheduled weekly on treatment visits to assess for acute toxicities from radiotherapy. Review of Systems: Patient has no complaints Vital Signs: Performed on 11/03/2024 10:10 AM BMI - 24.651 kg/m2 (high), Height - 70 in, Weight - 171.8 lbs, Temperature - 96.8 f, Pulse - 101 /min (high), Respiration - 16 /min, O2 Sat - 98 %, Pain - 0, Fatigue - 0 and BP - 103/ 67 mm(hg). Physical Exam: Skin is somewhat dry and mildly hyperpigmented Imaging: Radiation therapy imaging related to accurate target localization (i.e. KV, MV and CBCT) was reviewed. Appropriate changes, if any, were made to ensure treatment accuracy. Plan: Will continue with his treatments as planned. He will be following up with his surgeon in November Signed by: Dr. Magdalena Chaney 11/03/2024 10:24:59 AM
--- NOTE | 2024-11-10 08:24 | N.ONRD TS_ITS ---
Radiation Oncology Treatment Summary Patient: Krunal Yao>Magen MR#: [id number] : 1940> Age: 84> Sex: Male Dictated by: Dr. Magdalena Chaney Date of Service: 11/09/2024 Referring Physician(s) : Diagnosis: C07 - Malignant neoplasm of parotid gland, Diagnosed 09/08/2024 (Active) Radiotherapy to Date: Course: L parotid bed, Treatment Site: L Parotid Bed, Ref. ID: [id number], Energy: 6X, Dose/Fx (cGy): 200, #Fx: 25 / 25, Dose Correction (cGy): 0, Total Dose Delivered (cGy): 5,000, Start Date: 10/05/2024, End Date: 11/09/2024, Elapsed Days: 35 Clinical Summary: The patient tolerated RT well. He had some mild skin irritation with hyperpigmentation and dryness Plan: End of treatment today. Continue on the above medication until the skin reaction resolves. Follow up in one month. Signed by: Dr. Magdalena Chaney>11/10/2024 8:22:51 AM <<Signature on File>>
== END 2024-11-20 23:59 | disposition home or self-care (01) ==
PROVIDERS: PCP Internal Medicine; Visit Provider Radiology Radiation Oncology
DX: Z51.0 Encounter for antineoplastic radiation therapy (principal); C07 Malignant neoplasm of parotid gland
CPT/HCPCS: 77336; 77386; 99024

== ENCOUNTER 2024-12-09 10:47 | Oncology outpatient (recurring) (ONCR) | payer MEDICARE, OTHER, SELFPAY ==
--- NOTE | 2024-12-09 11:19 | ONCRAD EPV_ITS ---
Radiation Oncology Established Patient Visit Patient: Krunal Thomas [id number] : 1940> Age: 84> Sex: Male> Dictated by: Dr. Magdalena Chaney Date of Service: 12/09/2024 Referring Physician(s) : Diagnosis: C07 - Malignant neoplasm of parotid gland, Diagnosed 09/08/2024 (Active) Radiotherapy to Date: Course: L parotid bed, Treatment Site: L Parotid Bed, Ref. ID: [id number], Energy: 6X, Dose/Fx (cGy): 200, #Fx: 25 / 25, Dose Correction (cGy): 0, Total Dose Delivered (cGy): 5,000, Start Date: 10/05/2024, End Date: 11/09/2024, Elapsed Days: 35 Current History: Patient returns today for his 1 month check. He has been in good spirits. His says he has been eating and drinking normally. His weight is remains stable at 170 pounds. His skin healed up nicely. Current Medications: Allergies: Current Complaints / Review of Systems: . Vital Signs: Performed on 12/09/2024 11:03 AM BMI - 24.421 kg/m2 (high), Height - 70 in, Weight - 170.2 lbs, Temperature - 96.7 f, Pulse - 88 /min, Respiration - 18 /min, O2 Sat - 96 %, Pain - 0, Fatigue - 0 and BP - 107/ 67 mm(hg). Physical Exam: General: Alert and oriented x 3. No acute distress. HEENT: Normocephalic, atraumatic. Extraocular Movements Intact: Pupils Equal, Round, Reactive to Light and Accommodation: Sclerae anicteric. Oral cavity is clear without lesions, masses or ulcers. Skin: Skin is nicely healed. There is no erythema or dryness. He still has significant seborrheic keratoses across his scalp and face.. LUNGS: Respiratory rate is regular nonlabored. HEART: Regular rate and rhythm. Performance Status: 80 Lab: None pending. 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 Imaging: See HPI Impression: Squamous of carcinoma status post postop radiation after parotid surgery Plan: At this point he is recovered nicely from his treatments. He will see his surgeon in [place] on Saturday. His daughter will stop by next week and let us know what needs to be scheduled in terms of scans and follow-ups. Signed by: 12/09/2024 11:17:47 AM <<Signature on File>> Time spent with [id number] CPT Code: * CPT Code: *
== END 2024-12-21 23:59 | disposition home or self-care (01) ==
LOC: ONCMED 10:48
PROVIDERS: PCP Internal Medicine; Visit Provider Radiology Radiation Oncology
DX: Z08 Encounter for follow-up examination after completed treatment for malignant neoplasm (principal); C07 Malignant neoplasm of parotid gland; Z92.3 Personal history of irradiation
CPT/HCPCS: 99024

== ENCOUNTER → 2025-01-05 09:40 | Outpatient (BNVA) | payer MEDICARE, OTHER, SELFPAY | PROVIDERS: PCP Internal Medicine; Visit Provider Nurse Practitioner Family | DX: I10 Essential (primary) hypertension (principal); I25.10 Atherosclerotic heart disease of native coronary artery without angina pectoris; Z95.5 Presence of coronary angioplasty implant and graft; E11.9 Type 2 diabetes mellitus without complications; I25.2 Old myocardial infarction; Z87.891 Personal history of nicotine dependence; Z79.84 Long term (current) use of oral hypoglycemic drugs | CPT/HCPCS: 99214 ==

== ENCOUNTER 2025-02-17 13:16 | Emergency (ER) | payer MEDICARE, OTHER, SELFPAY ==
[2025-02-17 13:27] VITALS: BP 126/77; PULSE 63; RESP 16; TEMP 36.8; O2SAT 95
--- NOTE | 2025-02-17 13:31 | CT_ITS ---
WS: [id number] CT HEAD NONCONTRAST HISTORY: SYMPTOMS OF STROKE TECHNIQUE: Contiguous axial imaging performed through the brain. Bone and soft tissue windows. Sagittal and coronal reformats reviewed. All CT scans at [facility] use at least one of these dose optimization techniques: automated exposure control; mA and/or kV adjustment per patient size (includes targeted exams where dose is matched to clinical indication); or iterative reconstruction. DLP: 1274.38 mGy COMPARISON: 01/11/2020 No acute intracranial hemorrhage, midline shift or mass effect. Moderate symmetric volume loss and small vessel disease. Prior lacunar infarct RIGHT basal ganglia. Moderate cerebellar atrophy. Ventricles: Mild ventriculomegaly. No intra displacement the cerebellar tonsils. Paranasal sinuses: As visualized are clear. Mastoid air cells: Well pneumatized. Calvarium and scalp: Skull is intact with no soft tissue edema or swelling. Dense calcified plaque in the distal vertebral and intracranial carotid arteries. CT/CT head thrombolytic [id number] IMPRESSION: 1. No acute intracranial hemorrhage or edema. 2. Moderate volume loss and small vessel disease. No acute infarct. Notified Leoncio Zaldivar MD at 02/17/2025 1:44 PM.
[2025-02-17 13:32] LABS: Glucose Point of Care 182 mg/dL (70-110)
--- NOTE | 2025-02-17 13:55 | XR_ITS ---
WS: [id number] Portable AP semiupright chest, 02/17/2025 Clinical Data: syncope Comparison: Portable chest, 10/26/2021 Findings: No nodules, masses or effusions are seen. The heart is normal. The pulmonary vascularity is not increased. No pneumonia or pneumothorax is seen. The aortic arch shows tortuosity. The patient has a poor inspiration. There is a right shoulder arthroplasty. There are orthopedic anchors in the left humeral head. There are surgical clips in the left supraclavicular region. Monitor leads are on the chest wall. XR/XR chest 1V [id number] Impression: 1. Atherosclerosis. 2. Poor inspiration.
--- NOTE | 2025-02-17 13:55 | ECG_ITS ---
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
[2025-02-17 13:56] VITALS: BP 86/57
--- NOTE | 2025-02-17 13:57 | W.ED.NEUROSD ---
HPI - Neuro Symptoms/Deficit General: Chief Complaint: Neuro Symptoms/Deficit Stated Complaint: lathergic weak dizzy Time Seen by Provider: 02/17/25 13:42 History of Present Illness: Chief complaint is altered mental status. History is obtained from the daughter, the patient and the . Patient was feeling weak since he first woke up this morning. His states that he said that he felt too tired and lightheaded to stand for very long. Then he was in the vehicle and he was too weak to get out of it and then had a change in mental status. Related Data Home Medications ?Medication ?Instructions ?Recorded ?Confirmed citalopram 20 mg tablet 20 mg PO DAILY 01/11/20 01/05/25 ascorbic acid (vitamin C) 500 mg 250 mg PO DAILY 10/18/21 01/05/25 tablet (Vitamin C) cholecalciferol (vitamin D3) 50 50 mcg PO DAILY 10/18/21 01/05/25 mcg (2,000 unit) tablet (Vitamin D3) glipizide 10 mg tablet 20 mg PO 03/15/22 01/05/25 famotidine 20 mg tablet (Pepcid) 20 mg PO BID 12/24/23 01/05/25 quetiapine 25 mg tablet (Seroquel) 25 mg PO DAILY 12/24/23 01/05/25 ondansetron HCl 8 mg tablet mg PO ONCE PRN 01/28/24 01/05/25 Plavix PO 08/18/24 01/05/25 alfuzosin 10 mg tablet,extended 10 mg PO DAILY 08/18/24 01/05/25 release 24 hr (Uroxatral) Previous Rx's ?Medication ?Instructions ?Recorded imiquimod 5 % topical cream packet 1 applic topical ONCE #24 ea 06/18/22 atorvastatin 40 mg tablet 80 mg (2 x 40 mg) PO BEDTIME #90 12/27/22 tabs galantamine 8 mg tablet 8 mg PO BID #180 tabs 08/18/24 nitroglycerin 0.4 mg sublingual 0.4 mg sublingual Q5M PRN Chest 08/18/24 tablet (Nitrostat) Pain #12 tabs pantoprazole 40 mg tablet,delayed See Rx Instructions .Route 10/21/24 release .COMPLEX #90 tabs clopidogrel 75 mg tablet 75 mg PO DAILY #90 tabs 01/05/25 Allergies Allergy/AdvReac Type Severity Reaction Status Date / Time Alpha-Gal Allergy Intermediate ADR-Gastrointestinal Verified 01/05/25 09:47 ([id number]-[id number]-6,3-Gala Upset [facility] ED PFS: Medical History STEMI (ST elevation myocardial infarction) Coronary artery disease First degree AV block Hypertension Diabetes Surgical History S/P right coronary artery (RCA) stent placement History of right shoulder replacement History of intravascular stent placement Family History Father Colon cancer Stroke Mother Diabetes Social History Smoking and tobacco/nicotine status: former use of tobacco/nicotine Alcohol intake: never Substance/Drug Use: never Physical Exam Narrative: EXAM NARRATIVE: Patient is fully alert talkative telling jokes. He moves all extremities freely. He has no drift in his arms legs or face. Pupils are equal and reactive. Speech is clear. He has poor short-term memory which family states is baseline for him and he is not oriented to person or place. His neck is supple. His heart regular rhythm. Lung sounds are clear. Abdomen soft nontender. No palpable masses. Moist mucous membranes. Normal conjunctivo-. No rash in exposed areas. No calf tenderness or pitting edema. He sits up and moves his back freely. He moves his neck freely. No signs of trauma. Affect appropriate. Course Vital Signs: Vital signs: Vital Signs Temperature 98.3 F 02/17/25 13:27 Pulse Rate 77 02/17/25 17:10 Respiratory Rate 16 02/17/25 13:27 Blood Pressure 152/78 02/17/25 17:10 Pulse Oximetry 98 02/17/25 17:10 Oxygen Delivery Me thod Room Air 02/17/25 13:27 MDM - Neuro Symptoms/Deficit Medical Decision Making Patient presents with daughter son and . Patient has been feeling lightheaded and weaker since he woke up this morning. His states that his blood pressure typically runs low and can be in the 90s sometimes but this morning was 88. No change in medications. She drove here for a appointment to get a knee x-ray and when she went to have him get out of the vehicle he said he was too weak to get up. He then said that he was too weak to even hold his head up. She called the daughter who came and found that he was just mumbling and was altered. No focal motor deficits were noted. Patient had complete recovery after laying flat in the emergency department. He was sent directly for CT scan because of his altered mental status which was reported as negative for acute process per radiology. Patient has no focal deficits here to suggest stroke. Certainly TIA considered but more likely this was a near syncopal or syncopal episode. Differential is broad including dehydration, infectious cause, medication adverse effect, dissection, PE, AR, cardiac dysrhythmia, among many others. The patient has dementia making his evaluation more difficult. He states he feels fine. He denies having any chest pain or chest discomfort or black or bloody stools. The states he has not had any focal complaints and no fall or injury and no headache or chest pain or palpitations or trouble breathing or recent illness. Patient here is alert and interactive. He would not be a TNK candidate based on exam and history and additionally his last known well would have been last night. CBC CMP troponin EKG urinalysis and chest x-ray ordered as well as a 1 L normal saline IV fluid bolus. I discussed the patient and family broad differential and limits of ED evaluation and consideration for admission versus outpatient management. Patient EKG to my interpretation shows sinus rhythm with first-degree block and nonspecific ST segment changes and PVC. Patient remains asymptomatic. He stands and is asymptomatic. After second liter normal saline IV fluid bolus patient blood pressure is much improved and he does not have lightheadedness with standing. He still does drop standing compared to laying down. I discussed with the and the daughter admission to the hospital. They prefer for the patient to go home and have concerns with his dementia and admission and speak to the daughter they do not want aggressive measures when I discussed such as pacemaker and other evaluations. The patient's troponins are flat. Patient hemoglobin is 13.6. Creatinine and potassium were mildly elevated as well as BUN. They deny any known black or bloody stools. Will discharge with close outpatient follow-up and return instructions. Lab Data 02/17/25 13:47 02/17/25 13:[address] 02/17/25 13:31 IMPRESSION: 1. No acute intracranial hemorrhage or edema. 2. Moderate volume loss and small vessel disease. No acute infarct. Notified Leoncio Zaldivar MD at 02/17/2025 1:44 PM. Chest X-Ray 02/17/25 13:55 Impression: 1. Atherosclerosis. 2. Poor inspiration. Laboratory Results WBC 3.91 10^3/uL (3.29-11.43) 02/17/25 13:47 RBC 4.91 10^6/uL (3.85-5.65) 02/17/25 13:47 Hgb 13.60 g/dL (11.27-16.99) 02/17/25 13:47 Hct 43.1 % (37-53) 02/17/25 13:47 MCV 87.8 fl (82-101) 02/17/25 13:47 MCH 27.7 pg (27-33) 02/17/25 13:47 MCHC 31.6 g/dL (30-55) 02/17/25 13:47 RDW 13.6 % (12.1-15.1) 02/17/25 13:47 Plt Count 101 10^3/cmm (157-399) L 02/17/25 13:47 MPV 10.6 fL (7.4-10.4) H 02/17/25 13:47 Neut % (Auto) 58.0 % 02/17/25 13:47 Lymph % (Auto) 23.3 % 02/17/25 13:47 Edmunds % (Auto) 11.5 % 02/17/25 13:47 Eos % (Auto) 4.9 % 02/17/25 13:47 Baso % (Auto) 1.3 % 02/17/25 13:47 Neut # (Auto) 2.27 10^3/uL (1.8-7.7) 02/17/25 13:47 Lymph # (Auto) 0.9 10^3/uL (0.8-4.8) 02/17/25 13:47 Edmunds # (Auto) 0.5 10^3/uL (0.2-0.9) 02/17/25 13:47 Eos # (Auto) 0.2 10^3/uL (0.0-0.8) 02/17/25 13:47 Baso # (Auto) 0.1 10^3/uL (0.0-0.1) 02/17/25 13:47 Nucleated RBC % (auto) 0 % 02/17/25 13:47 Nucleated RBCs # 0.0 /100WBC 02/17/25 13:47 Sodium 133 mmol/L (136-145) L 02/17/25 13:47 Potassium 5.6 mmol/L (3.5-5.1) H 02/17/25 13:47 Chloride 103 mmol/L (98-107) 02/17/25 13:47 Carbon Dioxide 17 mmol/L (22-29) L 02/17/25 13:47 Anion Gap 18.6 (5-19) 02/17/25 13:47 BUN 30 mg/dL (8-23) H 02/17/25 13:47 Creatinine 1.5 mg/dL (0.7-1.2) H 02/17/25 13:47 GFR Calculation Not Reportable 02/17/25 13:47 Glucose 171 mg/dL (65-115) H 02/17/25 13:47 POC Glucose 182 mg/dL (70-110) H 02/17/25 13:26 Calculated Osmolality 286 mOsm/kg (285-295) 02/17/25 13:47 Calcium 8.7 mg/dL (8.5-10.5) 02/17/25 13:47 Total Bilirubin 0.4 mg/dL (0.15-1.2) 02/17/25 13:47 AST 19 U/L (0-40) 02/17/25 13:47 ALT 20 U/L (0-41) 02/17/25 13:47 Alkaline Phosphatase 101 U/L (40-130) 02/17/25 13:47 Troponin T Baseline 23 ng/L (0-15) H 02/17/25 13:47 Troponin T 120 Minute 23.23 ng/L (0-15) H 02/17/25 15:53 Delta Troponin T 0.23 ABS# (0-10) 02/17/25 15:53 Total Protein 6.3 g/dL (6.6-8.7) L 02/17/25 13:47 Albumin 3.3 g/dL (3.5-5.2) L 02/17/25 13:47 Globulin 3.0 g/dL (1.3-4.6) 02/17/25 13:47 Urine Color Yellow (Yellow) 02/17/25 15:00 Urine Appearance Clear (CLEAR) 02/17/25 15:00 Urine pH 5.5 (5-7) 02/17/25 15:00 Ur Specific [place] 1.011 (1.005-1.030) 02/17/25 15:00 Urine Protein 1+ (Negative) A 02/17/25 15:00 Urine Glucose (UA) Negative (Normal) 02/17/25 15:00 Urine Ketones Negative (Negative) 02/17/25 15:00 Urine Blood Negative (Negative) 02/17/25 15:00 Urine Nitrate Negative (Negative) 02/17/25 15:00 Urine Bilirubin Negative (Negative) 02/17/25 15:00 Urine Urobilinogen 0.2 mg/dL (Negative) 02/17/25 15:00 Ur Leukocyte Esterase Negative (Negative) 02/17/25 15:00 Urine RBC 0-2 /hpf (0-2) 02/17/25 15:00 Urine WBC 0-5 /hpf (0-5) 02/17/25 15:00 Ur Squamous Epith Cells 0-5 /hpf (0-5) 02/17/25 15:00 Amorphous Sediment Not Reportable 02/17/25 15:00 Urine Bacteria None seen /hpf (NONE) 02/17/25 15:00 Hyaline Casts 8.26 /lpf 02/17/25 15:00 Coarse Granular Casts 0-4 /lpf H 02/17/25 15:00 All radiology interpretation(s) finalized by discharge Discharge Plan Discharge Patient Disposition: Home Clinical Impression: Sympathotonic orthostatic hypotension, Near syncope Condition: Stable Prescriptions: No Action glipizide 10 mg tablet 20 mg PO alfuzosin [Uroxatral] 10 mg tablet extended release 24 hr 10 mg PO DAILY Rx Instructions: administer after the same meal each day Plavix PO Nitrostat 0.4 mg tablet, sublingual 0.4 mg SUBLINGUAL Q5M PRN (Reason: Chest Pain) Qty: 12 0RF Rx Instructions: do not exceed 3 doses per episode clopidogrel 75 mg tablet 75 mg PO DAILY Qty: 90 3RF imiquimod 5 % cream in packet 1 applic topical ONCE Qty: 24 1RF Rx Instructions: apply thin film to Saturday-Saturday (off weekends) for 6 weeks. famotidine [Pepcid] 20 mg tablet 20 mg PO BID quetiapine [Seroquel] 25 mg tablet 25 mg PO DAILY ondansetron HCl 8 mg tablet PO ONCE PRN atorvastatin 40 mg tablet 80 mg PO BEDTIME Qty: 90 4RF galantamine 8 mg tablet 8 mg PO BID Qty: 180 3RF Rx Instructions: administer with AM and PM meals pantoprazole 40 mg tablet,delayed release (DR/EC) See Rx Instructions .ROUTE .COMPLEX Qty: 90 3RF Dose Instruction: TAKE ONE TABLET BY MOUTH DAILY Rx Instructions: TAKE ONE TABLET BY MOUTH DAILY Vitamin C 500 mg Tablet 250 mg PO DAILY Vitamin D3 50 mcg (2,000 unit) Tablet 50 mcg PO DAILY citalopram 20 mg tablet 20 mg PO DAILY Discharge Orders: Discharge ED (Routine); Ordered 02/17/25 Ordered By: Leoncio Zaldivar Referrals: Jalen Hicks DO [Primary Care Provider, Internal Medicine] Activity Restrictions/Additional Instructions: Please come back to the emergency department for lightheadedness, passing out, change in mentation, any change in condition or concerns. Recheck his blood count with his doctor and kidney function and potassium. Monitor for black or bloody stools. Fall precautions. Please follow-up on his test results. 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
[2025-02-17] MEDS: sodium chloride 0.9% 1,000 ML 999 ML IV ×2 (14:09→16:38)
[2025-02-17 14:28] LABS: Basophils # 0.1 10^3/uL (0.0-0.1); Basophils % 1.3 %; Eosinophils # 0.2 10^3/uL (0.0-0.8); Eosinophils % 4.9 %; Hematocrit 43.1 % (37-53); Lymphocytes # 0.9 10^3/uL (0.8-4.8); Lymphocytes % 23.3 %; Mean Corpuscular HGB Conc 31.6 g/dL (30-55); Mean Corpuscular Hemoglobin 27.7 pg (27-33); Mean Corpuscular Volume 87.8 fl (82-101); Mean Platelet Volume 10.6 fL (7.4-10.4); Monocytes # 0.5 10^3/uL (0.2-0.9); Monocytes % 11.5 %; Neutrophils # 2.27 10^3/uL (1.8-7.7); Nucleated Red Blood Cells % 0 %; Platelet Count 101 10^3/cmm (157-399); Red Blood Count 4.91 10^6/uL (3.85-5.65); Red Cell Distribution Width 13.6 % (12.1-15.1); White Blood Count 3.91 10^3/uL (3.29-11.43)
[2025-02-17 14:41] LABS: Troponin(5th) Baseline 23 ng/L (0-15)
[2025-02-17 14:43] LABS: Alanine Aminotransferase 20 U/L (0-41); Albumin Level 3.3 g/dL (3.5-5.2); Alkaline Phosphatase 101 U/L (40-130); Blood Urea Nitrogen 30 mg/dL (8-23); Calcium 8.7 mg/dL (8.5-10.5); Carbon Dioxide 17 mmol/L (22-29); Chloride 103 mmol/L (98-107); Glucose 171 mg/dL (65-115); Osmolality Calculated 286 mOsm/kg (285-295); Sodium 133 mmol/L (136-145); Total Bilirubin 0.4 mg/dL (0.15-1.2); Total Protein 6.3 g/dL (6.6-8.7)
[2025-02-17 14:46] LABS: Anion Gap 18.6 (5-19); Aspartate Amino Transferase 19 U/L (0-40); Potassium 5.6 mmol/L (3.5-5.1)
[2025-02-17 15:48] LABS: Bilirubin Urine Negative (Negative); Blood Urine Negative (Negative); Glucose Urine UA Negative (Normal); Ketones Urine Negative (Negative); Leukocyte Esterase Urine Negative (Negative); Nitrate Urine Negative (Negative); Protein Urine 1+ (Negative); Specific Gravity, Urine 1.011 (1.005-1.030); Urine Appearance Clear (CLEAR); Urine Color Yellow (Yellow); Urobilinogen Urine 0.2 mg/dL (Negative); pH Urine 5.5 (5-7)
[2025-02-17 15:50] VITALS: BP 118/82; BP 138/99; BP 155/90; PULSE 73; PULSE 75; PULSE 78
[2025-02-17 15:55] LABS: Bacteria Urine None Seen /hpf; Hyaline Casts Urine 8.26 /lpf; RBC Urine 0-2 /hpf (0-2); Squamous Epithelial Cell Urine 0-5 /hpf (0-5); WBC Urine 0-5 /hpf (0-5)
[2025-02-17 16:19] LABS: Add Urine Culture? No; Coarse Granular Casts Urine 0-4 /lpf; UA Slide Review UA Slide Review Perf
[2025-02-17 16:27] LABS: Troponin 5 2HR 23.23 ng/L (0-15); Troponin 5 2HR Delta 0.23 ABS# (0-10)
[2025-02-17 17:10] VITALS: BP 152/78; PULSE 77; O2SAT 98
[2025-02-17 18:38] VITALS: BP 152/78; PULSE 77; O2SAT 96
== END 2025-02-17 18:40 | disposition home or self-care (01) ==
PROVIDERS: Emergency Provider Emergency Medicine; PCP Internal Medicine
DX: I95.1 Orthostatic hypotension (principal)
CPT/HCPCS: 12345; 36415; 36416; 70450; 71045; 80053; 81001; 82962; 84484; 85025; 93005; 99285; J7030

== ENCOUNTER 2025-03-15 13:03 | Oncology outpatient (recurring) (ONCR) | payer MEDICARE, OTHER, SELFPAY ==
--- NOTE | 2025-03-15 13:30 | CT_ITS ---
WS: [id number] CT NECK TECHNIQUE: Contrast-enhanced CT of the neck with coronal and sagittal reformatted images. CLINICAL INFORMATION: parotid ca COMPARISON: PET/CT 08/10/2024 DLP: 170.[address] scans at [facility] use at least one of these dose optimization techniques: automated exposure control; mA and/or kV adjustment per patient size (includes targeted exams where dose is matched to clinical indication); or iterative reconstruction. 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 LEFT parotidectomy. No evidence of recurrent mass or lesion in the parotidectomy bed. RIGHT parotid is normal. Submandibular glands are normal. Normal posterior nasopharynx. Normal parapharyngeal fat. Surgical clips LEFT lower neck. Vascular calcification. Dense carotid bulb calcification with carotid stenosis. This can be further evaluated with ultrasound or CTA. No cervical lymphadenopathy. Straightening of the normal cervical lordosis. Advanced spondylitic changes cervical spine. No cervical lymphadenopathy. CT/CT neck w con* [id number] IMPRESSION: 1. Prior resection of the LEFT parotid mass. No evidence of recurrent disease within the parotidectomy bed. PET/CT would be more sensitive for recurrent or r esidual disease if indicated 2. No cervical lymphadenopathy. 3. Dense carotid bulb calcification with carotid stenosis. This could further evaluated ultrasound or CTA neck.
[2025-03-15] MEDS: iohexol 350 mg/mL 500 mL Btl (per mL) IV (14:25)
== END 2025-03-22 23:59 | disposition home or self-care (01) ==
LOC: RAD 13:07 → ONCMED 03-16 09:59
PROVIDERS: PCP Electrodiagnostic Medicine; Visit Provider Radiology Radiation Oncology
DX: C07 Malignant neoplasm of parotid gland (principal); R93.89 Abnormal findings on diagnostic imaging of other specified body structures; Z98.890 Other specified postprocedural states; I70.90 Unspecified atherosclerosis; I65.29 Occlusion and stenosis of unspecified carotid artery; M47.892 Other spondylosis, cervical region
CPT/HCPCS: 70491

== ENCOUNTER → 2025-03-17 10:29 | Outpatient (BNVA) | payer MEDICARE, OTHER, SELFPAY | PROVIDERS: PCP Electrodiagnostic Medicine; Visit Provider Podiatrist Foot & Ankle Surgery | DX: E11.42 Type 2 diabetes mellitus with diabetic polyneuropathy (principal); L60.3 Nail dystrophy; I73.9 Peripheral vascular disease, unspecified | CPT/HCPCS: 99203 ==

== ENCOUNTER → 2025-07-07 10:24 | Outpatient (BNVA) | payer MEDICARE, OTHER, SELFPAY | PROVIDERS: PCP Electrodiagnostic Medicine; Visit Provider Podiatrist Foot & Ankle Surgery | DX: E11.42 Type 2 diabetes mellitus with diabetic polyneuropathy (principal); L60.3 Nail dystrophy; I73.9 Peripheral vascular disease, unspecified | CPT/HCPCS: 11721 ==